=== PATIENT | female | born 1960 | race Caucasian/White ===

== ENCOUNTER 2016-03-10 13:58 | Emergency (ER) | payer OTHER ==
[~2016-03-10] VITALS: Wt 40.0 kg
[~2016-03-10 13:58] MED LIST: IBUP-1542 PO; METO25TA7 PO; OMEP20CA9 PO; OXYB5TAB7 PO
[2016-03-10] MEDS: HYDROCODONE/APAP (5/325) TAB PO ONE ×2 (15:03→15:05)
[2016-03-10] MEDS ORDERED: HYDROmorphONE 2 MG/ML SYG IM STA (15:05)
[2016-03-10] MEDS ORDERED: OXYC-279 PO (15:17)
[2016-03-10] MEDS ORDERED: CYCL-319 PO (15:17)
[2016-03-10] MEDS ORDERED: NAPR-260 PO (15:17)
[2016-03-10 15:22] LABS: URINE BLOOD (Dip) POC 3+ (NEGATIVE)
--- NOTE | 2016-03-10 17:38 | ERD ---
DATE OF SERVICE: HISTORY OF PRESENT ILLNESS: The patient is a 55-year-old female coming in complaining of chronic ba ck pain. Patient states that her back pain intensified 6 days ago when she was lifting boxes. She states that the pain is worse with movement and rotational movement. She is not taking medications for her symptoms. She has no numbness or tingling down her legs, and no weakness. She has been abl e to control her bowel movements and urination without difficulty. PAST MEDICAL HISTORY: Denies any other medical problems. ALLERGIES: Denies allergies to medications. SURGICAL HISTORY: Denies. SOCIAL HISTORY: Denies. REVIEW OF SYSTEMS: A 12-point review of systems was done. Refer to HPI for positives, all other sy stems negative. PHYSICAL EXAMINATION: VITAL SIGNS: Temperature is 98.5, pulse is 107, blood pressure is 120/64, respiratory rate 18, O2 s aturation 98% on room air. Pain intensity of 10/10. GENERAL: The patient is well-appearing, well-nourished, no acute distress. HEENT: Atraumatic. Conjunctivae are pink. Pupils equal, round, and reactive to light. There is no s cleral icterus. Tympanic membranes clear bilaterally. Oropharynx clear. No nystagmus or photophobia . CHEST: Clear to auscultation bilaterally. There are no rales, wheezes or rhonchi. HEART: Regular rate and rhythm. No murmurs, clicks, rubs or gallops. No S3 or S4. ABDOMEN: Soft, nontender and nondistended. Good bowel sounds. No rebound or guarding. No gross jacinto tonitis. No gross organomegaly or masses. No Barboza sign or McBurney point tenderness. EXTREMITIES: Equal pulses bilaterally. There is no peripheral clubbing, cyanosis or edema. No focal swelling or erythema. Full range of motion. Grossly neurovascularly intact. NEURO: Alert and oriented. Cranial nerves 2-12 intact. Motor strength in all 4 extremities with 5/5 strength. Sensation grossly intact. Normal speech and gait. Babinski negative. DTR 2+ throughout. EMERGENCY ROOM COURSE: The patient was given Dilaudid in the ER. DIAGNOSIS: Chronic back pain. MEDICAL DECISION MAKING: I have low suspicion for acute fracture or dislocation. I have low suspic ion for neuro deficit. Patient does have a history of cancer. Recommended to follow up with her pr imary doctor. She has been clear for 2 years, but I recommended she has a close evaluation. I have low suspicion for cauda equina, diskitis or epidural abscess. DISCHARGE: The patient is discharged stable. Patient is given a prescription for Percocet and Napr oxen and Flexeril and told to follow up with primary care within 1 to 2 days for reevaluation. The patient was told if symptoms progress or worsen to return to the ER. All other questions answered a t time of discharge. Discharge summary given at the time of departure. Patient understood and comp lied with plan. Dictated By: KRIBY DOHERTY for ZAK NASH/MYAH Conf#: [id number] DID#: [id number]
== END 2016-03-10 16:18 | disposition home or self-care (01) ==
LOC: FTE 13:58
DX: M54.9 Dorsalgia, unspecified (principal); I10 Essential (primary) hypertension; Z85.42 Personal history of malignant neoplasm of other parts of uterus
CPT/HCPCS: 81003; 96372; J1170; Z7502; Z7610

== ENCOUNTER 2016-04-14 10:24 | Emergency (ER) | payer OTHER ==
[~2016-04-14] VITALS: Wt 43.6 kg
[~2016-04-14 10:24] MED LIST changes: +CYCL-319 PO; +NAPR-260 PO; +OXYC-279 PO
[2016-04-14] MEDS ORDERED: ONDANSETRON 4 MG INJ IV STA ×2 (10:46→13:37)
[2016-04-14] MEDS ORDERED: SOD CHLORIDE 0.9% 150 ML IV STA (10:46)
--- NOTE | 2016-04-14 10:46 | ERD ---
ER Documentation Chief Complaint Date/Time DATE: 04/14/16 TIME: 10:45 Chief Complaint left arm pain and headache from a fall. etoh for 3 days, no neuro def HPI 55-year-old female with history of chronic alcohol abuse and chronic pain well known to this ED, ambulatory to the ED with her complaining of a slip and fall several days ago with an injury to her upper back. She does not recall whether she lost consciousness but has worsening occipital headache. Denies neck pain. No chest pain or palpitations. No shortness of breath or cough. Chronic epigastric abdominal pain with nausea and multiple episodes of nonbloody nonbilious emesis. No URI symptoms or cough. No fevers or chills. According to her she is scheduled to be admitted next week for alcohol detox. ROS All systems reviewed and are negative except as per history of present illness. Medications Home Meds Reported Medications Lorazepam* (Lorazepam*) 1 Mg Tablet, 1 MG PO BID Y for ANXIETY, #30 TAB 04/14/16 Carisoprodol* (Carisoprodol*) 350 Mg Tablet, 350 MG PO Q8 Y for MUSCLE SPASMS, TAB 04/14/16 Hydrocodone/Acetaminophen ([place] 5-325 Tablet) 1 Each Tablet, 1 EACH PO DAILY Y for SEVERE PAIN LEVEL 7-10, TAB 04/14/16 Metoprolol Succinate* (Toprol XL*) 25 Mg Tab.sr.24h, 25 MG PO QAM, TAB 01/13/14 Oxybutynin Chloride* (Ditropan*) 5 Mg Tablet, 5 MG PO BID, TAB 01/13/14 Omeprazole* (Prilosec*) 20 Mg Capsule.dr, 20 MG PO DAILY, CAP 01/13/14 Discontinued Scripts Naproxen* (Naprosyn*) 500 Mg Tablet, 500 MG PO BID Y for PAIN AND/OR INFLAMMATION, #30 TAB Prov:LUANA FELIX PA-C 03/10/16 Cyclobenzaprine Hcl* (Cyclobenzaprine Hcl*) 10 Mg Tablet, 10 MG PO TID, #15 TAB Prov:LUANA FELIX PA-C 03/10/16 Oxycodone HCl/Acetaminophen (Percocet 5-325 mg Tablet) 1 Each Tablet, 1 EACH PO QHS, #10 TAB Prov:LUANA FELXI PA-C 03/10/16 Ibuprofen* (Motrin*) 600 Mg Tab, 600 MG PO Q6H Y for PAIN AND OR ELEVATED TEMP, #30 TAB Prov:ZANE MARQUEZ MD 10/15/15 Allergies Allergies: Coded Allergies: No Known Allergy (Verified , 04/14/16) PMhx/Soc Reviewed in chart. As per HPI. History of Surgery: Yes (hysterectomy 2006) Anesthesia Reaction: No Hx Neurological Disorder: No Hx Respiratory Disorders: No Hx Cardiac Disorders: Yes (HTN, osteoarthritis) Hx Psychiatric Problems: No Hx Miscellaneous Medical Probl: Yes (HERNIATED DISK, uterine CA) Hx Alcohol Use: Yes (etoh abuse) Hx Substance Use: No Hx Tobacco Use: Yes FmHx Reviewed in chart. As per HPI Physical Exam Vitals Vital Signs Date Time Temp Pulse Resp B/P Pulse Ox O2 Delivery O2 Flow Rate FiO2 04/14/16 13:12 116 24 99/64 92 Room Air 04/14/16 10:28 98.8 121 26 133/79 99 Physical Exam Const: Alert, anxious Head: Atraumatic. Mild occipital tenderness. Eyes: Normal Conjunctiva ENT: Normal External Ears, Nose and Mouth. Neck: Full range of motion. No midline bony tenderness or paraspinal muscle spasm. Resp: Breath sounds are equal and clear to auscultation bilaterally Cardio: Regular rate and rhythm, no murmurs. Chest wall: No rib tenderness or crepitus. Abd: Soft, mild epigastric tenderness, non distended. Normal bowel sounds. No rebound or guarding. No masses or abnormal pulsations. Skin: No petechiae or rashes Back: Right upper back abrasion and tenderness. No midline or flank tenderness Ext: No cyanosis, or edema Neur: Awake and alert Psych: Anxious. Patient denies visual auditory hallucinations. No suicidal or homicidal ideations. Result Diagram: 04/14/16 1110 04/14/16 1110 Results 24 hrs Laboratory Tests Test 04/14/16 11:10 Alanine Aminotransferase (ALT/SGPT) 61IU/L Albumin 5.0g/dl Albumin/Globulin Ratio 1.42 Alkaline Phosphatase 134IU/L Anion Gap 28 Aspartate Amino Transf (AST/SGOT) 97IU/L Basophils # 0.010^3/ul Basophils % 0.1% Blood Urea Nitrogen 14mg/dl Calcium Level 8.6mg/dl Carbon Dioxide Level 27mmol/L Chloride Level 86mmol/L Creatinine 0.52mg/dl Direct Bilirubin 0.00mg/dl Eosinophils # 0.010^3/ul Eosinophils % 0.1% Ethyl Alcohol Level 293.0mg/dl Globulin 3.50g/dl Glucose Level 134mg/dl Hematocrit 39.6% Hemoglobin 13.9g/dl Indirect Bilirubin 0.4mg/dl Lipase 177U/L Lymphocytes # 0.610^3/ul Lymphocytes % 7.2% Mean Corpuscular Hemoglobin 32.1pg Mean Corpuscular Hemoglobin Concent 35.1g/dl Mean Corpuscular Volume 91.2fl Mean Platelet Volume 9.5fl Monocytes # 0.710^3/ul Monocytes % 8.3% Neutrophils # 7.510^3/ul Neutrophils % 84.3% Nucleated Red Blood Cells # 0.010^3/ul Nucleated Red Blood Cells % 0.0/100WBC Platelet Count 58621^3/UL Potassium Level 3.1mmol/L Red Blood Count 4.3410^6/ul Red Cell Distribution Width 14.4% Sodium Level 138mmol/L Total Bilirubin 0.4mg/dl Total Protein 8.5g/dl White Blood Count 8.910^3/ul Current Medications Medications (Trade) Dose Ordered Sig/Yuliya Route PRN Reason Start Time Stop Time Status Last Admin Dose Admin Sodium Chloride (NS) 150 ml @ 150 mls/hr Q1H STAT IV 04/14/16 10:46 04/14/16 11:45 Ondansetron HCl (Zofran Inj) 4 mg ONCE STAT IV 04/14/16 10:46 04/14/16 10:47 04/14/16 11:02 Pantoprazole (Protonix Iv) 40 mg ONCE ONCE IV 04/14/16 11:00 04/14/16 11:01 04/14/16 11:02 Metoclopramide HCl (Reglan) 10 mg ONCE ONCE IV 04/14/16 12:30 04/14/16 12:31 04/14/16 12:09 Diphenhydramine HCl (Benadryl) 25 mg ONCE ONCE IV 04/14/16 12:30 04/14/16 12:31 04/14/16 12:10 Diphtheria/ Tetanus/Acell Pertussis (Adacel) 0.5 ml ONCE ONCE IM* 04/14/16 13:00 04/14/16 13:01 04/14/16 13:21 PROCEDURE: XR Chest. CLINICAL INDICATION: chest pain TECHNIQUE: Single frontal view of the chest was obtained COMPARISON: 10/29/14 FINDINGS: The heart and mediastinum are within normal limits. The lungs are clear. There is no pleural effusion or pneumothorax. RPTAT: AA IMPRESSION: No acute disease. .Aaron Zarate MD, MD Date Time Electronically viewed and signed by .Aaron Zarate MD, on 04/14/2016 11: 24 .S/ PROCEDURE: CT Brain without. CLINICAL INDICATION: Fall, headache. TECHNIQUE: A CT of the brain was performed on multidetector high-resolution CT scanner utilizing axial sections from the skull base through the vertex without contrast. The scan was reviewed in soft tissue brain and high frequency resolution bone algorithm windows. Images were reviewed on a high- resolution PACS workstation. One or more the following does reduction techniques were utilized: Automated exposure control, adjustment of the mA/ or kV according to patient's size, or use of iterative reconstruction technique. The exam CTDI = 45.0 mGy and the DLP = 72.23 mGy-cm. COMPARISON: Brain CT 05/01/2015. FINDINGS: The ventricles and sulci are mildly prominent indicative of volume loss. There is no intracranial hemorrhage, mass effect or midline shift. No abnormal intra- axial or extra-axial fluid collections are seen. The nance/white matter differentiation is preserved. There are mild scattered foci of hypoattenuation in the white matter, which are nonspecific in etiology but likely reflect chronic small vessel ischemic changes. The visualized paranasal sinuses are essentially clear. IMPRESSION: 1. No acute intracranial hemorrhage, transcortical infarction or mass effect. 2. Mild chronic small vessel ischemic changes. 3. Mild generalized cerebral volume loss. RPTAT: AA .Lilian Barajas MD, MD Date Time Electronically viewed and signed by .Lilian Barajas MD, MD on 04/14/2016 12: 54 .N/ Procedures/MDM DOCUMENTS REVIEWED: ED nurse, prior ED, prior records REEXAMINATION/REEVALUATION: Time: 13:30. Doing well. Abdomen soft nontender. No vomiting. MEDICAL DECISION MAKIN-year-old female with history of chronic alcohol abuse and chronic pain well known to this ED, ambulatory to the ED with her complaining of a slip and fall several days ago with an injury to her upper back. Closed head injury. CT is negative for acute intracranial injury including but not limited to subdural/epidural hematoma. Epigastric tenderness likely secondary to gastritis/GERD complicated by chronic pain. Doubt bowel obstruction. No rebound/guarding or other signs of peritonitis. Normal saline hydration, Zofran, Reglan and Benadryl given with improvement. Stable for discharge with precautionary instructions and outpatient follow-up as counseled. Counseled patient and family regarding diagnostic workup, diagnosis and need for followup. Understands to return to ED if symptoms recur, worsen or any other concerns. Departure Diagnosis: Primary Impression: Alcoholic intoxication Complication of substance-induced condition: uncomplicated Qualified Code: F10.120 - Alcoholic intoxication, uncomplicated Additional Impressions: Closed head injury Encounter type: initial encounter Qualified Code: S09.90XA - Closed head injury, initial encounter Fall with no significant injury Encounter type: initial encounter Qualified Code: W19.XXXA - Fall with no significant injury, initial encounter Chronic alcohol abuse Chronic pain Chronic pain type: other chronic pain Qualified Code: G89.29 - Other chronic pain Nausea and vomiting Vomiting type: unspecified Vomiting Intractability: unspecified Qualified Code: R11.2 - Nausea and vomiting, intractability of vomiting not specified, unspecified vomiting type Condition: Stable Patient Instructions: Alcohol Abuse, Alcohol Intoxication, HEAD INJURY, No Wake -Up (Adult), Nausea and Vomiting-Adult MONICA ENGLAND MD Apr 14, 2016 10:45
[2016-04-14] MEDS ORDERED: PANTOPRAZOLE 40 MG INJ IV ONE (11:00)
[2016-04-14 11:22] LABS: BASOPHILS % 0.1 % (0.0-2.0); EOSINOPHILS % 0.1 % (0.0-7.0); HEMATOCRIT 39.6 % (37.0-47.0); HEMOGLOBIN 13.9 g/dl (12.0-16.0); LYMPHOCYTES # 0.6 10^3/ul (0.8-2.9); LYMPHOCYTES % 7.2 % (15.0-51.0); MEAN CORPUSCULAR HEMOGLOBIN 32.1 pg (29.0-33.0); MEAN CORPUSCULAR HGB CONC 35.1 g/dl (32.0-37.0); MEAN CORPUSCULAR VOLUME 91.2 fl (82.0-101.0); MEAN PLATELET VOLUME 9.5 fl (7.4-10.4); MONOCYTE # 0.7 10^3/ul (0.3-0.9); MONOCYTES % 8.3 % (0.0-11.0); NEUTROPHIL # 7.5 10^3/ul (1.6-7.5); NEUTROPHILS % 84.3 % (39.0-77.0); PLATELET COUNT 136 10^3/UL (140-440); RED BLOOD COUNT 4.34 10^6/ul (4.20-5.40); RED CELL DISTRIBUTION WIDTH 14.4 % (11.5-14.5); UNCORRECTED WBC 8.9 10^3/ul (4.8-10.8); WHITE BLOOD COUNT 8.9 10^3/ul (4.8-10.8)
[2016-04-14 11:24] LABS: CONDITION 1
--- NOTE | 2016-04-14 11:25 | RADRPT ---
PROCEDURE: XR Chest. CLINICAL INDICATION: chest pain TECHNIQUE: Single frontal view of the chest was obtained COMPARISON: 10/29/14 FINDINGS: The heart and mediastinum are within normal limits. The lungs are clear. There is no pleural effusion or pneumothorax. RPTAT: AA IMPRESSION: No acute disease. .Aaron Zarate MD, MD Date Time Electronically viewed and signed by .Aaron Zarate MD, MD on 04/14/2016 11:24 .S/
[2016-04-14 11:39] LABS: POTASSIUM 3.1 mmol/L (3.5-5.1)
[2016-04-14 11:41] LABS: CREATININE 0.52 mg/dl (0.44-1.00)
[2016-04-14 11:42] LABS: ALBUMIN/GLOBULIN RATIO 1.42; BILIRUBIN,INDIRECT 0.4 mg/dl (0-1.1); BILIRUBIN,TOTAL 0.4 mg/dl (0.2-1.3); CALCIUM 8.6 mg/dl (8.4-10.2); TOTAL PROTEIN 8.5 g/dl (6.1-8.1)
[2016-04-14] MEDS ORDERED: DIPHENHYDRAMINE 50 MG INJ IV ONE ×2 (12:30→14:00)
[2016-04-14] MEDS ORDERED: METOCLOPRAMIDE 10 MG INJ IV ONE (12:30)
[2016-04-14] MEDS ORDERED: HYDR-906 PO (12:33)
[2016-04-14] MEDS ORDERED: CARI350T29 PO (12:34)
[2016-04-14] MEDS ORDERED: LORA1TAB PO (12:34)
--- NOTE | 2016-04-14 12:54 | RADRPT ---
PROCEDURE: CT Brain without. CLINICAL INDICATION: Fall, headache. TECHNIQUE: A CT of the brain was performed on multidetector high-resolution CT scanner utilizing a xial sections from the skull base through the vertex without contrast. The scan was reviewed in sof t tissue brain and high frequency resolution bone algorithm windows. Images were reviewed on a high -resolution PACS workstation. One or more the following does reduction techniques were utilized: Aut omated exposure control, adjustment of the mA/ or kV according to patient's size, or use of iterativ e reconstruction technique. The exam CTDI = 45.0 mGy and the DLP = 72.23 mGy-cm. COMPARISON: Brain CT 05/01/2015. FINDINGS: The ventricles and sulci are mildly prominent indicative of volume loss. There is no intracranial he morrhage, mass effect or midline shift. No abnormal intra-axial or extra-axial fluid collections ar e seen. The nance/white matter differentiation is preserved. There are mild scattered foci of hypoattenuation in the white matter, which are nonspecific in etiol ogy but likely reflect chronic small vessel ischemic changes. The visualized paranasal sinuses are essentially clear. IMPRESSION: 1. No acute intracranial hemorrhage, transcortical infarction or mass effect. 2. Mild chronic small vessel ischemic changes. 3. Mild generalized cerebral volume loss. RPTAT: AA .Lilian Barajas MD, MD Date Time Electronically viewed and signed by .Lilian Barajas MD, MD on 04/14/2016 12:54 .N/
[2016-04-14] MEDS ORDERED: DIPHTH/TET/ACEL PERTUSS (ADULT) 0.5 ML VIAL IM* ONE (13:00)
[2016-04-14] MEDS ORDERED: POTASSIUM CHLORIDE (SR) 20 MEQ TAB PO STA (13:37)
[2016-04-14] MEDS ORDERED: ONDANSETRON (ODT) 4 MG TAB ODT STA (13:38)
[2016-04-14] MEDS ORDERED: LORAZEPAM 2 MG INJ IM ONE (14:00)
[2016-04-14] MEDS ORDERED: ONDA4TAB14 PO (15:16)
[2016-04-14 15:20] VITALS: BP 107/67; PULSE 96; RESP 20
== END 2016-04-14 15:34 | disposition home or self-care (01) ==
LOC: E/R 10:24
DX: F10.120 Alcohol abuse with intoxication, uncomplicated (principal); R40.2252 Coma scale, best verbal response, oriented, at arrival to emergency department; G89.29 Other chronic pain; R11.2 Nausea with vomiting, unspecified; I10 Essential (primary) hypertension; R40.2362 Coma scale, best motor response, obeys commands, at arrival to emergency department; R40.2142 Coma scale, eyes open, spontaneous, at arrival to emergency department; W01.0XXA Fall on same level from slipping, tripping and stumbling without subsequent striking against object, initial encounter; Y92.9 Unspecified place or not applicable; Z23 Encounter for immunization; Z85.42 Personal history of malignant neoplasm of other parts of uterus; Z87.891 Personal history of nicotine dependence
CPT/HCPCS: 70450; 71010; 80053; 80306; 83690; 85025; 90715; C9113; J1200; J2060; J2405; J2765; J7040; Z7610; 36415; 90471; 96372; 96374; 96375

== ENCOUNTER 2016-05-19 13:34 | Emergency (ER) | payer OTHER ==
[~2016-05-19] VITALS: Wt 60.0 kg
[~2016-05-19 13:34] MED LIST changes: +CARI350T29 PO; -CYCL-319 PO; +HYDR-906 PO; -IBUP-1542 PO; +LORA1TAB PO; -NAPR-260 PO; +ONDA4TAB14 PO; -OXYC-279 PO
[2016-05-19] MEDS ORDERED: ONDANSETRON (ODT) 4 MG TAB ODT STA (21:22)
--- NOTE | 2016-05-19 21:27 | ERD ---
ER Documentation Chief Complaint Date/Time DATE: 05/19/16 TIME: 21:24 Chief Complaint ETOH WITH BACK PAIN HPI Patient is a 55-year-old female who states that she was drinking his usual and was sitting on the commode when she fell off of it and hit her head on the bathtub. This occurred a couple of days ago. She describes it as a weird event although she cannot give me any more description than that. She does not think she was knocked out. Somehow she injured her low back as well but she cannot tell me how. She states she does have chronic low back pain as well. She states she used to get injections but does not anymore. She admits to being a chronic alcoholic. I asked her if she wanted to go somewhere for detox and she stated she is already scheduled for detox on . She is not interested at this time. She is here because she is concerned about hitting her head and exacerbating her low back pain. She denies any neck pain, chest pain, shortness of breath, hemoptysis, abdominal pain, diarrhea, melena, hematochezia, paresthesias, or focal weakness. She denies any lacerations, or abrasions. She is complaining of nausea and vomiting however she has not had any alcohol since this morning and she states she has vomiting when she withdraws. She says she does not have seizures. The remainder review systems are negative. ROS All systems reviewed and are negative except as per history of present illness. Medications Home Meds Active Scripts Ondansetron (Ondansetron Odt) 4 Mg Tab.rapdis, 4 MG PO Q6H Y for NAUSEA AND/OR VOMITING, #10 TAB Prov:MONICA ENGLAND MD 04/14/16 Reported Medications Lorazepam* (Lorazepam*) 1 Mg Tablet, 1 MG PO BID Y for ANXIETY, #30 TAB 04/14/16 Carisoprodol* (Carisoprodol*) 350 Mg Tablet, 350 MG PO Q8 Y for MUSCLE SPASMS, TAB 04/14/16 Hydrocodone/Acetaminophen ([place] 5-325 Tablet) 1 Each Tablet, 1 EACH PO DAILY Y for SEVERE PAIN LEVEL 7-10, TAB 04/14/16 Metoprolol Succinate* (Toprol XL*) 25 Mg Tab.sr.24h, 25 MG PO QAM, TAB 11/13/14 Oxybutynin Chloride* (Ditropan*) 5 Mg Tablet, 5 MG PO BID, TAB 01/13/14 Omeprazole* (Prilosec*) 20 Mg Capsule.dr, 20 MG PO DAILY, CAP 01/13/14 Allergies Allergies: Coded Allergies: No Known Allergy (Verified , 04/14/16) PMhx/Soc History of Surgery: Yes (hysterectomy 2006) Anesthesia Reaction: No Hx Neurological Disorder: No Hx Respiratory Disorders: No Hx Cardiac Disorders: Yes (HTN, osteoarthritis) Hx Psychiatric Problems: No Hx Miscellaneous Medical Probl: Yes (HERNIATED DISK, uterine CA) Hx Alcohol Use: Yes (etoh abuse) Hx Substance Use: No Hx Tobacco Use: Yes Smoking Status: Current every day smoker FmHx Family History: No coronary disease, No diabetes Physical Exam Vitals Vital Signs Date Time Temp Pulse Resp B/P Pulse Ox O2 Delivery O2 Flow Rate FiO2 05/19/16 20:58 98.8 89 18 126/73 100 Room Air 05/19/16 13:36 98.0 122 18 112/86 99 Physical Exam Const: [] Well-developed cachectic appearing female lying on the bed no acute distress Head: Atraumatic normocephalic Eyes: Normal Conjunctiva, extraocular motions are intact ENT: Normal External Ears, Nose and Mouth. Neck: Full range of motion..~ No meningismus. Resp: Clear to auscultation bilaterally Cardio: Regular rate and rhythm, no murmurs Abd: Soft, non tender, non distended. Normal bowel sounds, no masses, rebound , or guarding Skin: No petechiae or rashes Back: Patient reports mild tenderness to palpation throughout the lumbosacral region, no step-off deformities noted Ext: No cyanosis, or edema Neur: Awake and alert, oriented 3, GCS of 15, cranial nerves II through XII are intact, moves all extremities equally, nonfocal Psych: Normal Mood and Affect Results 24 hrs Current Medications Medications (Trade) Dose Ordered Sig/Yuliya Route PRN Reason Start Time Stop Time Status Last Admin Dose Admin Lorazepam (Ativan) 1 mg ONCE ONCE IM 05/19/16 21:30 05/19/16 21:31 DC 05/19/16 21:31 Ondansetron HCl (Zofran Odt) 4 mg ONCE STAT ODT 05/19/16 21:22 05/19/16 21:25 DC 05/19/16 21:31 Procedures/MDM Differential includes minor head injury, acute exacerbation of chronic low back pain, fracture, chronic alcoholism CT of the brain shows atrophy for age but no acute findings per the radiologist CT of the lumbar spine shows a mild disc herniation at the lower lumbosacral spine but no acute findings per the radiologist 2031: Patient appears clinically stable for discharge home. She may follow-up as an outpatient with her primary care physician. I have encouraged her to keep her appointment for detox. She may return to the emergency room for any new or worsening symptoms. Departure Diagnosis: Primary Impression: Acute alcohol intoxication Complication of substance-induced condition: uncomplicated Qualified Code: F10.120 - Acute alcohol intoxication, uncomplicated Additional Impressions: Head injury Encounter type: initial encounter Qualified Code: S09.90XA - Head injury, initial encounter Acute exacerbation of chronic low back pain Herniated intervertebral disc of lumbar spine Condition: Good Patient Instructions: Alcohol Addiction, Back And Neck Pain, General, HEAD INJURY, No Wake-Up (Adult) Additional Instructions: Please keep your appointment as scheduled on for detox. I feel this is very important for you. You may schedule a follow-up appointment as needed for your acute exacerbation of your chronic low back pain. Return to the emergency department for any new or worsening symptoms. JENNIFFER GUTIERREZ May 19, 2016 21:27
[2016-05-19] MEDS ORDERED: LORAZEPAM 2 MG INJ IM ONE (21:30)
--- NOTE | 2016-05-19 22:01 | RADRPT ---
PROCEDURE: CT brain without contrast CLINICAL INDICATION: Status post fall striking head. Post traumatic headaches. TECHNIQUE: A CT of the brain was performed utilizing axial sections from the skull base through th e vertex without contrast. Sagittal and coronal images were also reformatted. The exam CTDIvol = 99 9.78 mGy and DLP = 720.23 mGy-cm. COMPARISON: CT 04/14/2016 FINDINGS: No acute intracranial hemorrhage is identified. There is no mass effect or midline shift. No extra -axial fluid collection is seen. The ventricles and sulci are larger in size and configuration for the patient's provided age of 55 years consistent with advanced generalized atrophy. Mild low atten uation in the periventricular subcortical white matter likely reflects stable chronic small vessel i schemic disease. Becerra-white differentiation is preserved with no findings to suggest an acute ische kayli infarct. The fourth ventricle is midline and there is no density alteration within the genaro or cerebellum. The osseous structures are unremarkable. The mastoid air cells and visualized paranasal sinuses are clear. RPTAT:HJJR IMPRESSION: Advanced atrophy for the patient's provided age with stable mild chronic small vessel ischemic white matter disease but no evidence of acute intracranial abnormality or interval change from 04/14/2016 . Physician Dawit Date Time Electronically viewed and signed by Physician Dawit on 05/19/2016 22:01 /
--- NOTE | 2016-05-19 22:08 | RADRPT ---
PROCEDURE: CT Lumbar Spine without contrast. CLINICAL INDICATION: Post traumatic low back pain. TECHNIQUE: CT of the lumbar spine without contrast was performed. Axial images were obtained thro [facility] the lumbar spine and reformatted at 2.5 mm slice thickness. Coronal and sagittal images were ref ormatted. The CTDIvol = 6.39 mGy and DLP = 183.83 mGy-cm. COMPARISON: X-ray series 11/22/2013 FINDINGS: Vertebral bodies: There is preservation of lordosis, stature, mineralization and attenuation of the five [id number]-mxfhhmm levels. Partial lumbarization of S1 is present consistent with transitional jacob mbosacral anatomy, a normal S1-2 disk is present Conus medularis region: Normal in attenuation and determination estimated at the L1 level. T12-L1: No discogenic abnormality of significance is seen. There is no facet arthropathy. The centr al canal is patent. There is no evidence for foraminal stenosis. L1-L2: No discogenic abnormality of significance is seen. There is no facet arthropathy. The ligamen pasquale flava are normal in thickness. The central canal is patent. There is no evidence for foraminal stenosis. L2-L3: No discogenic abnormality of significance is seen. There is no facet arthropathy. The ligamen pasquale flava are normal in thickness. The central canal is patent. There is no evidence for foraminal stenosis. L3-L4:No discogenic abnormality of significance is seen. There is no facet arthropathy. The ligament um flava are normal in thickness. The central canal is patent. There is no evidence for foraminal stenosis. L4-L5: No discogenic abnormality of significance is seen. There is no facet arthropathy. The ligamen pasquale flava are normal in thickness. The central canal is patent. There is no evidence for foraminal stenosis. L5-S1: Preservation of disk stature with a small broad-based 2 mm disk protrusion. There is no facet arthropathy. Bilateral S1 spondylolysis is noted without spondylolisthesis The ligamentum flava are normal in thickness. The central canal is patent. There is no evidence for foraminal stenosis. Sacrum and sacroiliac joints: Other than transitional congenital anatomy, no acute abnormality is de monstrated, spina bifida occulta at S1 is seen. None spine related findings: Visualized liver demonstrates severe hepatic steatosis. There is minim al atherosclerotic calcification of the abdominal aorta. RPTAT:HJJR IMPRESSION: 1. No evidence of acute post traumatic lumbar spine abnormality. 2. 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 3. Small broad-based posterior disk protrusion at 5 S1 without significant disk stature loss or of associated stenosis. Osmani Banks Physician Date Time Electronically viewed and signed by Osmani Banks Physician on 05/19/2016 22:08 /
[2016-05-19] MEDS ORDERED: ONDA4TAB8 PO (22:37)
[2016-05-19] MEDS ORDERED: FIORICET PO (22:37)
[2016-05-19 22:48] VITALS: BP 133/78; PULSE 92; RESP 20; TEMP 98.5
== END 2016-05-19 22:48 | disposition home or self-care (01) ==
LOC: E/R 13:34
DX: F10.120 Alcohol abuse with intoxication, uncomplicated (principal); M51.86 Other intervertebral disc disorders, lumbar region; I10 Essential (primary) hypertension; F17.210 Nicotine dependence, cigarettes, uncomplicated; R11.2 Nausea with vomiting, unspecified; W18.09XA Striking against other object with subsequent fall, initial encounter; Y92.9 Unspecified place or not applicable; Z85.42 Personal history of malignant neoplasm of other parts of uterus
CPT/HCPCS: 70450; 72131; 96372; J2060; Z7502; Z7610

== ENCOUNTER 2016-06-16 13:44 | Emergency (ER) | payer OTHER ==
[~2016-06-16] VITALS: Ht 152.4 cm; Wt 40.0 kg
[~2016-06-16 13:44] MED LIST changes: +FIORICET PO; +ONDA4TAB8 PO
[2016-06-16 13:46] VITALS: Ht 152.4 cm; Wt 40.0 kg
[2016-06-16] MEDS ORDERED: KETOROLAC 30 MG INJ IM STA (14:30)
[2016-06-16] MEDS ORDERED: HYDROCODONE/APAP (5/325) TAB PO ONE (14:30)
--- NOTE | 2016-06-16 14:42 | ERD ---
ER Documentation Chief Complaint Date/Time DATE: 06/16/16 TIME: 14:35 Chief Complaint 710 R. elbow pain x 1 month after fall HPI This is a 55-year-old female, with history of chronic alcoholism and chronic lower back pain, presents emergency department for right elbow pain. Patient states she fell 1 month ago and she believes this is when she injured her elbow. At that time patient fell hitting her head and right elbow. Patient was seen here at that time and a CT brain and CT lumbar spine were done. CT brain reviewed by radiologist as advanced atrophy for the patient's provided age with stable mild chronic small vessel ischemic disease but no evidence of acute intracranial abnormality or interval change. CT lumbar spine reviewed by radiologist as no evidence of acute post traumatic lumbar spine abnormality. Patient states she takes [place] at home for pain however pain is becoming more severe. Patient rates pain 7/10. No swelling, erythema or laceration. Patient has full mobility to right upper extremity and elbow. ROS All systems reviewed and are negative except as per history of present illness. Medications Home Meds Active Scripts Ondansetron Hcl* (Zofran*) 4 Mg Tablet, 4 MG PO Q8H Y for NAUSEA AND/OR VOMITING , #30 TAB 0 Refills Prov:JENNIFFER GUTIERREZ 05/19/16 Acetamin/Butalbital/Caffeine* (Fioricet*) [id number] Tab, 2 TAB PO Q4H Y for PAIN LEVEL 6-10, #20 TAB 0 Refills Prov:JENNIFFER GUTIERREZ 05/19/16 Ondansetron (Ondansetron Odt) 4 Mg Tab.rapdis, 4 MG PO Q6H Y for NAUSEA AND/OR VOMITING, #10 TAB Prov:MONICA ENGLAND MD 04/14/16 Reported Medications Lorazepam* (Lorazepam*) 1 Mg Tablet, 1 MG PO BID Y for ANXIETY, #30 TAB 04/14/16 Carisoprodol* (Carisoprodol*) 350 Mg Tablet, 350 MG PO Q8 Y for MUSCLE SPASMS, TAB 04/14/16 Hydrocodone/Acetaminophen ([place] 5-325 Tablet) 1 Each Tablet, 1 EACH PO DAILY Y for SEVERE PAIN LEVEL 7-10, TAB 04/14/16 Metoprolol Succinate* (Toprol XL*) 25 Mg Tab.sr.24h, 25 MG PO QAM, TAB 11/13/14 Oxybutynin Chloride* (Ditropan*) 5 Mg Tablet, 5 MG PO BID, TAB 01/13/14 Omeprazole* (Prilosec*) 20 Mg Capsule.dr, 20 MG PO DAILY, CAP 01/13/14 Allergies Allergies: Coded Allergies: No Known Allergy (Verified , 06/16/16) PMhx/Soc History of Surgery: Yes (hysterectomy 2006) Anesthesia Reaction: No Hx Neurological Disorder: No Hx Respiratory Disorders: No Hx Cardiac Disorders: Yes (HTN, osteoarthritis) Hx Psychiatric Problems: No Hx Miscellaneous Medical Probl: Yes (HERNIATED DISK, uterine CA) Hx Alcohol Use: Yes (etoh abuse) Hx Substance Use: No Hx Tobacco Use: Yes Smoking Status: Current every day smoker Physical Exam Vitals Vital Signs Date Time Temp Pulse Resp B/P Pulse Ox O2 Delivery O2 Flow Rate FiO2 06/16/16 13:46 98.9 85 18 115/58 99 Physical Exam Const: no acute distress, smiling during exam Head: Atraumatic Eyes: Normal Conjunctiva ENT: Normal External Ears, Nose and Mouth. Neck: Full range of motion..~ No meningismus. Resp: Clear to auscultation bilaterally. No wheezing, rhonchi or crackles. No stridor or labored breathing. Patient is talking in complete sentences. Cardio: Regular rate and rhythm, no murmurs Abd: Soft, non tender, non distended. Normal bowel sounds Skin: No petechiae or rashes Back: No midline or flank tenderness Ext: No cyanosis, or edema. Full mobility to right and left upper extremities. No swelling, erythema or laceration. Full extension and flexion of right elbow. Neur: Awake and alert Psych: Normal Mood and Affect Results 24 hrs Current Medications Medications (Trade) Dose Ordered Sig/Yuliya Route PRN Reason Start Time Stop Time Status Last Admin Dose Admin Ketorolac Tromethamine (Toradol) 30 mg ONCE STAT IM 06/16/16 14:30 06/16/16 14:32 DC 06/16/16 14:51 Acetaminophen/ Hydrocodone Bitart ([place] (5/325)) 1 tab ONCE ONCE PO 06/16/16 14:30 06/16/16 14:32 DC 06/16/16 14:51 Procedures/MDM ED COURSE: The patient was stable throughout ED course. I kept the patient and/or family informed of laboratory and diagnostic imaging results throughout the ED course. Imaging X-ray right elbow Patient: ANKUSH OSEI : 1960 Age: 55 Sex: F MR #: [id number] [facility] #: [id number] DOS: 06/16/16 1430 Ordering MD: JUAN TORRES NP Location: [facility]TE Room/Bed: PROCEDURE: XR Elbow. CLINICAL INDICATION: Right elbow pain, fall TECHNIQUE: Three views of the right elbow are available for review COMPARISON: None available FINDINGS: There is no evidence of fracture or dislocation. The joint spaces are maintained. Bony mineralization is normal. No radiopaque foreign body is identified. No fat pad sail sign is identified to indicate a hemarthrosis. The soft tissues are otherwise unremarkable. IMPRESSION: 1. Unremarkable right elbow x-ray series. MDM: This is a 55-year-old female with relevant medical history for chronic alcoholism and chronic lower back pain presents to the emergency department for right elbow pain after fall one month ago. Patient reports falling hitting her head and right elbow. Patient was seen at the time of injury and workup was done at that time here. At that time CT imaging of brain and CT spine reviewed by radiologist showed no acute findings. No x-rays of the elbow were done at that time. Patient rating pain 7/10 to right elbow. No limited mobility. No swelling. Patient denies shortness of breath, difficulty breathing, chest pain or heart palpitations. Patient requesting [place]. Patient given [place] and Toradol on the ED. x-ray right elbow reviewed by radiologist is unremarkable. Patient states pain has improved. Low suspicion for acute dislocation, fracture or compartment syndrome. Differential diagnosis includes but not limited to acute exacerbation of chronic pain, muscular skeletal elbow pain and tendinitis. Patient is appropriate for outpatient management. Instructed patient to follow- up with primary care provider in the next 2-3 days for reassessment. Return to ED for any high fever, chest pain, difficulty breathing, shortness breath, wheezing, vomiting, diarrhea, abdominal pain or any new or worsening symptoms. Patient verbalizes understanding. All questions answered at discharge. Departure Diagnosis: Primary Impression: Elbow injury Encounter type: subsequent encounter Laterality: right Qualified Code: S59.901D - Elbow injury, right, subsequent encounter Condition: Stable JUAN TORRES NP Jun 16, 2016 14:42 JUAN TORRES NP Jun 16, 2016 14:42
--- NOTE | 2016-06-16 15:04 | RADRPT ---
PROCEDURE: XR Elbow. CLINICAL INDICATION: Right elbow pain, fall TECHNIQUE: Three views of the right elbow are available for review COMPARISON: None available FINDINGS: There is no evidence of fracture or dislocation. The joint spaces are maintained. Bony mineralization is normal. No radiopaque foreign body is identified. No fat pad sail sign is identified to indicate a hemarthrosis. The soft tissues are otherwise unremarkable. IMPRESSION: 1. Unremarkable right elbow x-ray series. RPTAT: QQ .Alex Avilez MD, Date Time Electronically viewed and signed by .Alex Avilez MD, on 06/16/2016 15:04 .M/
== END 2016-06-16 15:31 | disposition home or self-care (01) ==
LOC: FTE 13:44
DX: S59.901A Unspecified injury of right elbow, initial encounter (principal); F17.210 Nicotine dependence, cigarettes, uncomplicated; I10 Essential (primary) hypertension; W19.XXXA Unspecified fall, initial encounter; Y92.9 Unspecified place or not applicable; Z85.41 Personal history of malignant neoplasm of cervix uteri
CPT/HCPCS: 73080; J1885; Z7610; 96372

== ENCOUNTER 2016-08-10 13:23 | Emergency (ER) | payer OTHER ==
[~2016-08-10] VITALS: Ht 157.5 cm; Wt 35.0 kg
[2016-08-10 13:26] VITALS: Ht 157.5 cm; Wt 35.0 kg
[2016-08-10] MEDS ORDERED: KETOROLAC 15 MG INJ IV STA (14:02)
[2016-08-10] MEDS ORDERED: ONDANSETRON 4 MG INJ IV STA (14:02)
[2016-08-10] MEDS ORDERED: SOD CHLORIDE 0.9% 1,000 ML IV STA (14:02)
[2016-08-10 14:24] LABS: ADD SCAN DIFF NO
[2016-08-10 14:26] LABS: BASOPHILS % 0.6 % (0.0-2.0); EOSINOPHILS % 0.5 % (0.0-7.0); HEMATOCRIT 38.6 % (37.0-47.0); HEMOGLOBIN 13.8 g/dl (12.0-16.0); LYMPHOCYTES # 1.3 10^3/ul (0.8-2.9); LYMPHOCYTES % 20.5 % (15.0-51.0); MEAN CORPUSCULAR HEMOGLOBIN 33.6 pg (29.0-33.0); MEAN CORPUSCULAR HGB CONC 35.8 g/dl (32.0-37.0); MEAN CORPUSCULAR VOLUME 93.9 fl (82.0-101.0); MEAN PLATELET VOLUME 11.9 fl (7.4-10.4); MONOCYTE # 0.7 10^3/ul (0.3-0.9); MONOCYTES % 11.2 % (0.0-11.0); NEUTROPHIL # 4.4 10^3/ul (1.6-7.5); NEUTROPHILS % 66.9 % (39.0-77.0); PLATELET COUNT 133 10^3/UL (140-415); RED BLOOD COUNT 4.11 10^6/ul (4.20-5.40); RED CELL DISTRIBUTION WIDTH 13.7 % (11.5-14.5); WHITE BLOOD COUNT 6.5 10^3/ul (4.8-10.8)
[2016-08-10 14:31] LABS: ADD UMIC YES; URINE BILIRUBIN (Dip) 1+ (NEGATIVE); URINE BLOOD (Dip) 3+ (NEGATIVE); URINE COLOR BROWN (YELLOW); URINE GLUCOSE (Dip) NEGATIVE (NEGATIVE); URINE KETONES (Dip) NEGATIVE (NEGATIVE); URINE LEUKOCYTE ESTERASE (Dip) 1+ (NEGATIVE); URINE NITRITE (Dip) NEGATIVE (NEGATIVE); URINE TOTAL PROTEIN (Dip) 4+ (NEGATIVE); URINE UROBILINOGEN (Dip) 2.0 E.U./dL (0.1-1.0)
[2016-08-10 14:50] LABS: BACTERIA,URINE MANY; ICTOTEST NEGATIVE (NEGATIVE); URINE RBCS >200 /HPF (0)
[2016-08-10 15:12] LABS: ALBUMIN 5.6 g/dl (3.3-4.9); ALBUMIN/GLOBULIN RATIO 1.4; BILIRUBIN,INDIRECT 0.8 mg/dl (0-1.1); BILIRUBIN,TOTAL 0.8 mg/dl (0.2-1.3); CREATININE 0.71 mg/dl (0.44-1.00); TOTAL PROTEIN 9.6 g/dl (6.1-8.1)
[2016-08-10 15:18] LABS: POTASSIUM 2.9 mmol/L (3.5-5.1)
[2016-08-10] MEDS ORDERED: POTASSIUM CHLORIDE (SR) 20 MEQ TAB PO STA (15:18)
[2016-08-10] MEDS ORDERED: CEFTRIAXONE 1 GM/50 ML (PMX) 50 ML IVPB ONE (15:30)
[2016-08-10] MEDS ORDERED: morphine 4 MG/ML VIAL IV STA (15:36)
[2016-08-10] MEDS ORDERED: IOHEXOL 300MG/ML 150 ML BTL ONE (16:20)
[2016-08-10] MEDS ORDERED: SOD CHLORIDE 0.9% 100 ML ONE (16:20)
[2016-08-10] MEDS ORDERED: IODIXANOL LOCM 100 ML BTL ONE (16:21)
--- NOTE | 2016-08-10 16:53 | RADRPT ---
PROCEDURE: CT Abdomen and Pelvis with Contrast CLINICAL INDICATION: Abdominal pain TECHNIQUE: Transaxial images were obtained through the abdomen and pelvis on a multi-slice scanner following the intravenous administration of iodinated contrast. No oral contrast had previously be en given. Sagittal and coronal re-formations were subsequently reconstructed. One or more of the following dose reduction techniques were used: - Automated exposure control. - Adjustment of the mA and/or kV according to patient size. - Use of iterative reconstruction technique. Radiation dose: CTDIvol = 3.92 mGy; DLP = 197.53 mGy-cm. COMPARISON: 07/26/2013 FINDINGS: Lung bases: The visualized lung bases appear unremarkable. Liver: The liver remains normal in size but has become extensively and diffusely fatty infiltrated. No focal lesion is identified. Gallbladder: The wall is not thickened. No radiopaque stones are identified. Bile ducts: The common bile duct has become dilated measuring 7.4 mm in cross diameter at the superi or head of the pancreas. Pancreas: No pancreatic mass or inflammation is evident but the pancreatic duct is dilated to a maxi mum of 4 mm. This likely is a sequelae of chronic pancreatitis. Spleen: Normal in size with no focal lesion. Adrenals: Normal with no mass identified. Kidneys, ureters and bladder: The kidneys enhance normally and are normal in size and there is no ma ss, pathological calcification, or hydronephrosis evident. There is no perinephric stranding. The ur eters are normal in caliber and no ureteroliths are identified. The bladder is quite distended with urine. Reproductive organs: The uterus is absent and no adnexal mass is evident. Stomach, bowel, and mesentery: The stomach appears unremarkable. The second portion of the duodenum is mildly distended with air and fluid as is the ilium compatible with ileus. The bowel is otherwi se unremarkable without evidence of obstruction or inflammation. Appendix: The vermiform appendix is not discretely identified. Peritoneum: No free intraperitoneal fluid or air is identified. Aorta: Normal in caliber with no aneurysmal dilatation. IVC: Unremarkable. Lymph nodes: No pathologically enlarged nodes are identified. Osseous structures: There is an old nonunited fracture involving the tip of the left L3 transverse p rocess. There is bilateral spondylolysis at L5 not associated with significant spondylolisthesis. There is a disk bulge at L4-5. IMPRESSION: 1. Since the previous CT of 07/26/2013, the liver remains normal in size but has become extensively and diffusely fatty infiltrated with no focal lesion evident. 2. The gallbladder appears unremarkable but there is now mild dilatation of the common bile duct wh ich measures 7.4 mm in cross diameter through the head of the pancreas and the pancreatic duct is no ndilated of 4 mm. No choledocholiths evident and no pancreatic mass or inflammation is identified. There is mild distension of the second portion of the duodenum. 3. The small bowel pattern reflects an ileus, but there is no evidence of bowel obstruction or infl ammation.. There is less stool seen in the colon. The appendix is again not identified. 4. The uterus is again noted to be absent. 5. There is no free intraperitoneal fluid or air. 6. Old nonunited fracture again seen at the lateral left L3 transverse process and again there is b ilateral spondylolysis at L5. Physician Pattie Date Time Electronically viewed and signed by Physician Pattie on 08/10/2016 16:52 /
[2016-08-10] MEDS ORDERED: CIPR500T4 PO (17:01)
[2016-08-10] MEDS ORDERED: TRAM50TA2 PO (17:01)
[2016-08-10] MEDS ORDERED: ONDA8TAB14 PO (17:01)
--- NOTE | 2016-08-10 17:05 | ERD ---
ER Documentation Chief Complaint Date/Time DATE: 08/10/16 TIME: 17:02 Chief Complaint lower back pain radiating to left flank x 3 days with vomiting HPI This 48-year-old female complains of left low back pain. She has some mild pain in the right midabdomen as well. She has dysuria. She has had a few episodes of vomiting as well nonbilious nonbloody. She has nausea. She has no measured fevers. She denies diarrhea. She did fall a few days ago and has pain in her sacrum as well. She is able to ambulate. Patient has frequent previous visits for alcohol intoxication, and back pain. ROS All systems reviewed and are negative except as per history of present illness. Medications Home Meds Active Scripts Potassium Chloride (Klor-Con M20) 20 Meq Tab.prt.sr, 20 MEQ PO qday for 7 Days, #7 Prov:ZAK HAIDER MD 08/10/16 Ondansetron (Ondansetron Odt) 8 Mg Tab.rapdis, 8 MG PO Q6H Y for NAUSEA AND/OR VOMITING, #10 TAB Prov:ZAK HAIDER MD 08/10/16 Tramadol HCl (Tramadol HCl) 50 Mg Tablet, 50 MG PO Q4 Y for PAIN, #20 TAB Prov:ZAK HAIDER MD 08/10/16 Ciprofloxacin Hcl* (Ciprofloxacin Hcl*) 500 Mg Tablet, 500 MG PO BID for 7 Days , TAB Prov:ZAK HAIDER MD 08/10/16 Ondansetron Hcl* (Zofran*) 4 Mg Tablet, 4 MG PO Q8H Y for NAUSEA AND/OR VOMITING , #30 TAB 0 Refills Prov:JENNIFFER GUTIERREZ 05/19/16 Acetamin/Butalbital/Caffeine* (Fioricet*) [id number] Tab, 2 TAB PO Q4H Y for PAIN LEVEL 6-10, #20 TAB 0 Refills Prov:JENNIFFER GUTIERREZ 05/19/16 Ondansetron (Ondansetron Odt) 4 Mg Tab.rapdis, 4 MG PO Q6H Y for NAUSEA AND/OR VOMITING, #10 TAB Prov:MONICA ENGLAND MD 04/14/16 Reported Medications Lorazepam* (Lorazepam*) 1 Mg Tablet, 1 MG PO BID Y for ANXIETY, #30 TAB 04/14/16 Carisoprodol* (Carisoprodol*) 350 Mg Tablet, 350 MG PO Q8 Y for MUSCLE SPASMS, TAB 04/14/16 Hydrocodone/Acetaminophen ([place] 5-325 Tablet) 1 Each Tablet, 1 EACH PO DAILY Y for SEVERE PAIN LEVEL 7-10, TAB 04/14/16 Metoprolol Succinate* (Toprol XL*) 25 Mg Tab.sr.24h, 25 MG PO QAM, TAB 01/13/14 Oxybutynin Chloride* (Ditropan*) 5 Mg Tablet, 5 MG PO BID, TAB 01/13/14 Omeprazole* (Prilosec*) 20 Mg Capsule.dr, 20 MG PO DAILY, CAP 01/13/14 Allergies Allergies: Coded Allergies: No Known Allergy (Verified , 06/16/16) PMhx/Soc History of Surgery: Yes (hysterectomy 2006) Anesthesia Reaction: No Hx Neurological Disorder: No Hx Respiratory Disorders: No Hx Cardiac Disorders: Yes (HTN, osteoarthritis) Hx Psychiatric Problems: No Hx Miscellaneous Medical Probl: Yes (HERNIATED DISK, uterine CA) Hx Alcohol Use: Yes (etoh abuse) Hx Substance Use: No Hx Tobacco Use: Yes Smoking Status: Light tobacco smoker Physical Exam Vitals Vital Signs Date Time Temp Pulse Resp B/P Pulse Ox O2 Delivery O2 Flow Rate FiO2 08/10/16 15:24 98.6 99 18 131/88 100 Room Air 08/10/16 13:26 98.0 144 18 125/95 98 Physical Exam Const: [] Alert, not ill-appearing. Head: Atraumatic Eyes: Normal Conjunctiva ENT: Normal External Ears, Nose and Mouth. Neck: Full range of motion..~ No meningismus. Resp: Clear to auscultation bilaterally Cardio: Regular rate and rhythm, no murmurs Abd: Soft, mild tenderness in the left mid abdomen as well as the right midabdomen. No exquisite tenderness at McBurney's point no Barboza sign no rebound., non distended. Normal bowel sounds Skin: No petechiae or rashes Back: No midline or flank tenderness. Tenderness in the left L2-L3 area of the paraspinous muscles on the left side. There is no midline tenderness or deformities. Ext: No cyanosis, or edema Neur: Awake and alert Psych: Normal Mood and Affect Result Diagram: 08/10/16 1415 08/10/16 1415 Results 24 hrs Laboratory Tests Test 08/10/16 14:10 08/10/16 14:15 Urine Color BROWN Urine Clarity CLOUDY Urine pH 6.0 Urine Specific [place] 1.020 Urine Ketones NEGATIVE Urine Nitrite NEGATIVE Urine Bilirubin 1+ Urine Ictotest NEGATIVE Urine Urobilinogen 2.0 E.U./dL Urine Leukocyte Esterase 1+ Urine Microscopic RBC >200/HPF Urine Microscopic WBC 10-25/HPF Urine Bacteria MANY Urine Hemoglobin 3+ Urine Glucose NEGATIVE% Urine Total Protein 4+ White Blood Count 6.510^3/ul Red Blood Count 4.1110^6/ul Hemoglobin 13.8g/dl Hematocrit 38.6% Mean Corpuscular Volume 93.9fl Mean Corpuscular Hemoglobin 33.6pg Mean Corpuscular Hemoglobin Concent 35.8g/dl Red Cell Distribution Width 13.7% Platelet Count 94084^3/UL Mean Platelet Volume 11.9fl Neutrophils % 66.9% Lymphocytes % 20.5% Monocytes % 11.2% Eosinophils % 0.5% Basophils % 0.6% Nucleated Red Blood Cells % 0.0/100WBC Neutrophils # 4.410^3/ul Lymphocytes # 1.310^3/ul Monocytes # 0.710^3/ul Eosinophils # 0.010^3/ul Basophils # 0.010^3/ul Nucleated Red Blood Cells # 0.010^3/ul Sodium Level 138mmol/L Potassium Level 2.9mmol/L Chloride Level 90mmol/L Carbon Dioxide Level 25mmol/L Anion Gap 26 Blood Urea Nitrogen 8mg/dl Creatinine 0.71mg/dl Glucose Level 104mg/dl Calcium Level 10.0mg/dl Total Bilirubin 0.8mg/dl Direct Bilirubin 0.00mg/dl Indirect Bilirubin 0.8mg/dl Aspartate Amino Transf (AST/SGOT) 121IU/L Alanine Aminotransferase (ALT/SGPT) 67IU/L Alkaline Phosphatase 122IU/L Total Protein 9.6g/dl Albumin 5.6g/dl Globulin 4.00g/dl Albumin/Globulin Ratio 1.40 Lipase 224U/L Current Medications Medications (Trade) Dose Ordered Sig/Yuliya Route PRN Reason Start Time Stop Time Status Last Admin Dose Admin Sodium Chloride (NS) 1,000 ml @ 1,000 mls/hr Q1H STAT IV 08/10/16 14:02 08/10/16 15:01 DC 08/10/16 14:36 Ondansetron HCl (Zofran Inj) 4 mg ONCE STAT IV 08/10/16 14:02 08/10/16 14:03 DC 08/10/16 14:25 Ketorolac Tromethamine 15 mg 15 mg ONCE STAT IV 08/10/16 14:02 08/10/16 14:03 DC 08/10/16 14:25 Ceftriaxone Sodium (Rocephin) 50 ml @ 100 mls/hr ONCE ONCE IVPB 08/10/16 15:30 08/10/16 15:59 DC 08/10/16 15:15 Potassium Chloride (Klor-Con 20) 40 meq ONCE STAT PO 08/10/16 15:18 08/10/16 15:20 DC 08/10/16 15:55 Morphine Sulfate (morphine) 4 mg ONCE STAT IV 08/10/16 15:36 08/10/16 15:44 DC 08/10/16 15:55 IV Flush 10 ml 10 ml STK-MED ONCE .ROUTE 08/10/16 16:20 08/10/16 16:21 DC 08/10/16 16:27 Sodium Chloride (NS) 100 ml @ ud STK-MED ONCE .ROUTE 08/10/16 16:20 08/10/16 16:21 DC 08/10/16 16:27 Iohexol (Omnipaque 300mg/ ml) 150 ml STK-MED ONCE .ROUTE 08/10/16 16:20 08/10/16 16:21 DC Iodixanol (Visipaque Locm) 100 ml STK-MED ONCE .ROUTE 08/10/16 16:21 08/10/16 16:22 DC 08/10/16 16:28 Procedures/MDM Urine shows signs of infection was sent for culture. CBC shows no acute findings. CMP significant for potassium of 2.9. Patient was given potassium 40 mEq by mouth. Patient was given 1 L normal saline IV, Toradol 15 mg IV. She was given morphine 4 mg IV during the ED course for persistent pain. Patient felt much better after observation and treatment. Patient has signs of UTI. Given concern for pyelonephritis and abdominal pain of uncertain etiology CT abdomen pelvis with IV contrast shows no evidence of appendicitis. There is no evidence of pyelonephritis. There is some nonspecific findings of mildly dilated common bile duct, signs of ileus although there are no symptoms to suggest ileus and she is having bowel movements symptoms are consistent with ileus.. There is no bony lesions to suggest complications from patient's sacral pain due to her fall. There is no surgical lesions appreciated. Patient is feeling better and tolerating p.o.'s and will be discharged home the course of Cipro, tramadol and Zofran instructions for clear fluids. She will be given a short course of potassium as well. Patient is advised to follow-up with primary doctor this week return to the ER for new or worsening symptoms. The patient was stable with no new complaints during the ER course. Clinically, there is no current evidence to suggest meningitis, sepsis, acute abdomen, pneumonia, acute coronary syndrome, pulmonary embolism, or any other emergent condition appearing to require further evaluation or hospitalization. The patient should certainly return for any new or worsening symptoms per the aftercare instructions. They should otherwise follow-up with her primary care doctor for reevaluation this week. Departure Diagnosis: Primary Impression: UTI (urinary tract infection) Urinary tract infection type: acute cystitis Hematuria presence: without hematuria Qualified Code: N30.00 - Acute cystitis without hematuria Additional Impression: Back pain Back pain location: low back pain Chronicity: acute Back pain laterality: left Sciatica presence: without sciatica Qualified Code: M54.5 - Acute left- sided low back pain without sciatica Condition: Stable Patient Instructions: Understanding Urinary Tract Infections (UTIs), Back Pain (Acute Or Chronic) Additional Instructions: No significant infection seen on blood work although there is infection in urine and we will treat for this. There is low potassium and will treat for this as well.. Recheck for fevers, vomiting, new worsening symptoms. See primary doctor this week for follow-up. No acute abnormality seen on CT scan. ZAK HAIDER MD Aug 10, 2016 17:05
[2016-08-10] MEDS ORDERED: POTA20TA81 PO (17:06)
[2016-08-10 17:19] VITALS: BP 134/82; PULSE 86; RESP 18; TEMP 98.6
== END 2016-08-10 17:22 | disposition home or self-care (01) ==
LOC: FTE 13:23
DX: N30.00 Acute cystitis without hematuria (principal); R11.2 Nausea with vomiting, unspecified; I10 Essential (primary) hypertension; F17.210 Nicotine dependence, cigarettes, uncomplicated; Z85.41 Personal history of malignant neoplasm of cervix uteri
CPT/HCPCS: 36415; 74177; 80053; 81001; 83690; 85025; 87086; 96361; 96374; 96375; J0696; J1885; J2270; J2405; J7030; Q9967; Z7502; Z7610

== ENCOUNTER 2016-10-10 19:27 | Emergency (ER) | payer OTHER ==
[~2016-10-10] VITALS: Wt 39.0 kg
[~2016-10-10 19:27] MED LIST changes: +CIPR500T4 PO; +ONDA8TAB14 PO; +POTA20TA81 PO; +TRAM50TA2 PO
[2016-10-10] MEDS ORDERED: ONDANSETRON (ODT) 4 MG TAB ODT STA (20:06)
[2016-10-10] MEDS ORDERED: KETOROLAC 30 MG INJ IM STA (20:06)
[2016-10-10] MEDS ORDERED: DULO30CA45 PO (20:28)
[2016-10-10] MEDS ORDERED: PARO20TA58 PO (20:28)
[2016-10-10] MEDS ORDERED: UDMYL PO (20:30)
--- NOTE | 2016-10-10 20:55 | RADRPT ---
PROCEDURE: Ultrasound Retroperitoneum. CLINICAL INDICATION: Flank pain TECHNIQUE: Becerra scale and color flow sonographic images of the kidneys and retroperitoneum were ob tained. The images were reviewed on a PACS workstation. COMPARISON: No prior studies are available for comparison. FINDINGS: The right kidney measures 9.5 cm. The left kidney measures 9.4 cm. The kidneys demonstrate normal ec hogenicity. No masses, stones or hydronephrosis are identified. The bladder is collapsed. IMPRESSION: Unremarkable kidneys. RPTAT: AA .Jaydon Tavarez MD, Date Time Electronically viewed and signed by .Jaydon Tavarez MD, MD on 10/10/2016 20:55 .P/
[2016-10-10 21:10] LABS: ADD UMIC YES; UR ASCORBIC ACID NEGATIVE (NEGATIVE); UR BILIRUBIN (Dip) NEGATIVE (NEGATIVE); UR BLOOD (Dip) 2+ mg/dL (NEGATIVE); UR CLARITY CLEAR (CLEAR); UR COLOR YELLOW (YELLOW); UR GLUCOSE (Dip) NEGATIVE (NEGATIVE); UR KETONES (Dip) NEGATIVE (NEGATIVE); UR LEUKOCYTE ESTERASE (Dip) NEGATIVE Leu/ul (NEGATIVE); UR NITRITE (Dip) NEGATIVE (NEGATIVE); UR RBC 12 /HPF (0-5); UR TOTAL PROTEIN (Dip) NEGATIVE (NEGATIVE); UR UROBILINOGEN (Dip) NEGATIVE (NEGATIVE)
[2016-10-10] MEDS ORDERED: ONDA4TAB14 PO (21:26)
[2016-10-10] MEDS ORDERED: HYDR-902 PO (21:26)
[2016-10-10 21:43] VITALS: BP 90/56; PULSE 61; RESP 16; TEMP 98.3
--- NOTE | 2016-10-10 22:16 | ERD ---
ER Documentation Chief Complaint Date/Time DATE: 10/10/16 TIME: 22:14 Chief Complaint Bilateral flank pain with Pelvic pain x4 days HPI Patient is a 48-year-old female with back pain who presents with abdominal pain and back pain. She has bilateral abdominal pain that radiates to her hips and back. She said the pain started 4 days ago. She tried [place] but ran out of [place]gar [place] 2 days ago. Upon review of old medical records the patient has multiple visits to the ER since 2006. Review of the emergency department information exchange system shows visits to 2 separate emergency departments. Her primary doctor is Dr. Flaherty. ROS All systems reviewed and are negative except as per history of present illness. Medications Home Meds Active Scripts Ondansetron (Ondansetron Odt) 4 Mg Tab.rapdis, 4 MG PO Q6H Y for NAUSEA AND/OR VOMITING, #30 TAB Prov:ZANE MARQUEZ MD 10/10/16 Hydrocodone/Acetaminophen ([place] 10-325 Tablet) 1 Each Tablet, 1 TAB PO Q6H Y for PAIN, #7 TAB Prov:ZANE MARQUEZ MD 10/10/16 Reported Medications Magaldrate/Simethicone* (Mag-Al Plus Suspension*) 30 Ml Oral.susp, 30 ML PO PRN Y for GASTROINTESTINAL UPSET, ML 10/10/16 Duloxetine Hcl* (Cymbalta*) 30 Mg Capsule.dr, 30 MG PO DAILY, CAP 10/10/16 Paroxetine Hcl* (Paxil*) 20 Mg Tablet, 20 MG PO DAILY, TAB 10/10/16 Hydrocodone/Acetaminophen ([place] 5-325 Tablet) 1 Each Tablet, 1 EACH PO DAILY Y for SEVERE PAIN LEVEL 7-10, TAB 04/14/16 Omeprazole* (Prilosec*) 20 Mg Capsule.dr, 20 MG PO DAILY, CAP 01/13/14 Discontinued Reported Medications Lorazepam* (Lorazepam*) 1 Mg Tablet, 1 MG PO BID Y for ANXIETY, #30 TAB 04/14/16 Carisoprodol* (Carisoprodol*) 350 Mg Tablet, 350 MG PO Q8 Y for MUSCLE SPASMS, TAB 04/14/16 Metoprolol Succinate* (Toprol XL*) 25 Mg Tab.sr.24h, 25 MG PO QAM, TAB 01/13/14 Oxybutynin Chloride* (Ditropan*) 5 Mg Tablet, 5 MG PO BID, TAB 01/13/14 Discontinued Scripts Potassium Chloride (Klor-Con M20) 20 Meq Tab.prt.sr, 20 MEQ PO qday for 7 Days, #7 Prov:ZAK HAIDER MD 08/10/16 Ondansetron (Ondansetron Odt) 8 Mg Tab.rapdis, 8 MG PO Q6H Y for NAUSEA AND/OR VOMITING, #10 TAB Prov:ZAK HAIDER MD 08/10/16 Tramadol HCl (Tramadol HCl) 50 Mg Tablet, 50 MG PO Q4 Y for PAIN, #20 TAB Prov:ZAK HAIDER MD 08/10/16 Ciprofloxacin Hcl* (Ciprofloxacin Hcl*) 500 Mg Tablet, 500 MG PO BID for 7 Days , TAB Prov:ZAK HAIDER MD 08/10/16 Ondansetron Hcl* (Zofran*) 4 Mg Tablet, 4 MG PO Q8H Y for NAUSEA AND/OR VOMITING , #30 TAB 0 Refills Prov:JENNIFFER GUTIERREZ 05/19/16 Acetamin/Butalbital/Caffeine* (Fioricet*) [id number] Tab, 2 TAB PO Q4H Y for PAIN LEVEL 6-10, #20 TAB 0 Refills Prov:JENNIFFER GUTIERREZ 05/19/16 Ondansetron (Ondansetron Odt) 4 Mg Tab.rapdis, 4 MG PO Q6H Y for NAUSEA AND/OR VOMITING, #10 TAB Prov:MONICA ENGLAND MD 04/14/16 Allergies Allergies: Coded Allergies: No Known Allergy (Verified , 10/10/16) PMhx/Soc History of Surgery: Yes (hysterectomy 2006) Anesthesia Reaction: No Hx Neurological Disorder: No Hx Respiratory Disorders: No Hx Cardiac Disorders: Yes (HTN, osteoarthritis) Hx Psychiatric Problems: No Hx Miscellaneous Medical Probl: Yes (HERNIATED DISK, uterine CA) Hx Alcohol Use: Yes (etoh abuse) Hx Substance Use: No Hx Tobacco Use: Yes Smoking Status: Current every day smoker FmHx Family History: No diabetes Physical Exam Vitals Vital Signs Date Time Temp Pulse Resp B/P Pulse Ox O2 Delivery O2 Flow Rate FiO2 10/10/16 21:43 98.3 61 16 90/56 98 Room Air 10/10/16 19:43 99.4 98 20 115/69 98 Physical Exam Const: Moderate distress secondary to pain Head: Atraumatic Eyes: Normal Conjunctiva ENT: Normal External Ears, Nose and Mouth. Neck: Full range of motion..~ No meningismus. Resp: Clear to auscultation bilaterally Cardio: Regular rate and rhythm, no murmurs Abd: Soft, diffuse tenderness to palpation without rebound or guarding Skin: No petechiae or rashes Back: No midline or flank tenderness Ext: No cyanosis, or edema Neur: Awake and alert Psych: Normal Mood and Affect Results 24 hrs Laboratory Tests Test 10/10/16 19:59 Urine Color YELLOW Urine Clarity CLEAR Urine pH 8.0 Urine Specific [place] 1.010 Urine Ketones NEGATIVEmg/dL Urine Nitrite NEGATIVEmg/dL Urine Bilirubin NEGATIVEmg/dL Urine Urobilinogen NEGATIVEmg/dL Urine Leukocyte Esterase NEGATIVELeu/ul Urine Microscopic RBC 12/HPF Urine Microscopic WBC 0/HPF Urine Hemoglobin 2+mg/dL Urine Glucose NEGATIVEmg/dL Urine Total Protein NEGATIVEmg/dl Current Medications Medications (Trade) Dose Ordered Sig/Yuliya Route PRN Reason Start Time Stop Time Status Last Admin Dose Admin Ketorolac Tromethamine (Toradol) 30 mg ONCE STAT IM 10/10/16 20:06 10/10/16 20:07 DC 10/10/16 20:22 Ondansetron HCl (Zofran Odt) 4 mg ONCE STAT ODT 10/10/16 20:06 10/10/16 20:07 DC 10/10/16 20:22 Procedures/MDM Ultrasound of the kidneys are normal per radiology. Urinalysis shows no signs of acute infection. Smoking Cessation Therapy: Pt. was lectured for greater than 3 minutes on the health risks of continued smoking and the benefits of cessation. Patient is a 56-year-old female with chronic pain who presents with abdominal pain and flank pain. She has multiple visits to the ER for pain complaints. I do not believe she requires further workup and I think the risks of CT scan radiation outweigh the benefits in this case. She has had multiple CT scans done in the past. The patient will be discharged home with a short course of [place] and Zofran. She was given Toradol in the emergency department. I doubt appendicitis, cholecystitis, pancreatitis, or bowel obstruction. The patient can return for any worsening symptoms. Departure Diagnosis: Primary Impression: Abdominal pain Abdominal location: generalized Qualified Code: R10.84 - Generalized abdominal pain Additional Impression: Flank pain Condition: Fair Patient Instructions: Abdominal Pain, Flank Pain, Uncertain Cause Additional Instructions: FOLLOW UP WITH YOUR PRIMARY CARE PHYSICIAN TOMORROW.Return to this facility if you are not improving as expected. ZANE MARQUEZ MD Oct 10, 2016 22:16
== END 2016-10-10 21:44 | disposition home or self-care (01) ==
LOC: E/R 19:27
DX: R10.84 Generalized abdominal pain (principal); I10 Essential (primary) hypertension; F17.210 Nicotine dependence, cigarettes, uncomplicated; Z85.42 Personal history of malignant neoplasm of other parts of uterus
CPT/HCPCS: 76775; 81001; 96372; J1885; Z7502; Z7610

== ENCOUNTER 2017-01-11 01:50 | Inpatient (IN) | payer OTHER ==
[~2017-01-11] VITALS: Ht 152.4 cm; Wt 36.0 kg
[~2017-01-11 01:50] MED LIST changes: -CARI350T29 PO; -CIPR500T4 PO; +DULO30CA45 PO; -FIORICET PO; +HYDR-902 PO; -LORA1TAB PO; -METO25TA7 PO; -ONDA4TAB8 PO; -ONDA8TAB14 PO; -OXYB5TAB7 PO; +PARO20TA58 PO; -POTA20TA81 PO; -TRAM50TA2 PO; +UDMYL PO
[2017-01-11] MEDS ORDERED: morphine 2 MG INJ IV STA (02:40)
[2017-01-11] MEDS ORDERED: SOD CHLORIDE 0.9% 500 ML IV STA (02:40)
[2017-01-11] MEDS ORDERED: KETOROLAC 30 MG INJ IV STA (02:40)
[2017-01-11 02:59] VITALS: TEMP 99.4
[2017-01-11] MEDS ORDERED: ONDANSETRON 4 MG INJ IV STA (03:29)
[2017-01-11 03:51] LABS: ALBUMIN 4.4 g/dl (3.3-4.9); ALBUMIN/GLOBULIN RATIO 1.29; BILIRUBIN,INDIRECT 0.2 mg/dl (0-1.1); BILIRUBIN,TOTAL 0.2 mg/dl (0.2-1.3); CALCIUM 9.1 mg/dl (8.4-10.2); CREATININE 0.61 mg/dl (0.44-1.00); TOTAL PROTEIN 7.8 g/dl (6.1-8.1)
[2017-01-11 04:04] LABS: BASOPHILS % 0.6 % (0.0-2.0); EOSINOPHILS % 0.6 % (0.0-7.0); HEMATOCRIT 36.4 % (37.0-47.0); HEMOGLOBIN 13.1 g/dl (12.0-16.0); LYMPHOCYTES # 1.3 10^3/ul (0.8-2.9); LYMPHOCYTES % 17.8 % (15.0-51.0); MEAN CORPUSCULAR VOLUME 91.7 fl (82.0-101.0); MEAN PLATELET VOLUME 9.4 fl (7.4-10.4); MONOCYTE # 1.4 10^3/ul (0.3-0.9); MONOCYTES % 20.2 % (0.0-11.0); NEUTROPHIL # 4.2 10^3/ul (1.6-7.5); NEUTROPHILS % 58.7 % (39.0-77.0); PLATELET COUNT 395 10^3/UL (140-415); RED BLOOD COUNT 3.97 10^6/ul (4.20-5.40); RED CELL DISTRIBUTION WIDTH 13.9 % (11.5-14.5); WHITE BLOOD COUNT 7.1 10^3/ul (4.8-10.8)
--- NOTE | 2017-01-11 04:11 | ERD ---
ER Documentation Chief Complaint Chief Complaint rib pain bilat front ribs s/p fall 2 days ago HPI This 56-year-old female states that she fell 2 days ago onto her tailbone when she tripped with no preceding neurological deficits or chest pain and she currently has pain of her anterior ribs. Also has a headache and states that she thinks she might have hit her head. Denies any neck pain. Denies any specific back pain. States that she just feels "terrible" in general. No fever chills. ROS All systems reviewed and are negative except as per history of present illness. Medications Home Meds Active Scripts Ondansetron (Ondansetron Odt) 4 Mg Tab.rapdis, 4 MG PO Q6H Y for NAUSEA AND/OR VOMITING, #30 TAB Prov:ZANE MARQUEZ MD 10/10/16 Hydrocodone/Acetaminophen ([place] 10-325 Tablet) 1 Each Tablet, 1 TAB PO Q6H Y for PAIN, #7 TAB Prov:ZANE MARQUEZ MD 10/10/16 Reported Medications Magaldrate/Simethicone* (Mag-Al Plus Suspension*) 30 Ml Oral.susp, 30 ML PO PRN Y for GASTROINTESTINAL UPSET, ML 10/10/16 Duloxetine Hcl* (Cymbalta*) 30 Mg Capsule.dr, 30 MG PO DAILY, CAP 10/10/16 Paroxetine Hcl* (Paxil*) 20 Mg Tablet, 20 MG PO DAILY, TAB 10/10/16 Hydrocodone/Acetaminophen ([place] 5-325 Tablet) 1 Each Tablet, 1 EACH PO DAILY Y for SEVERE PAIN LEVEL 7-10, TAB 04/14/16 Omeprazole* (Prilosec*) 20 Mg Capsule.dr, 20 MG PO DAILY, CAP 01/13/14 Allergies Allergies: Coded Allergies: No Known Allergy (Verified , 10/10/16) PMhx/Soc History of Surgery: Yes (hysterectomy 2006) Anesthesia Reaction: No Hx Neurological Disorder: No Hx Respiratory Disorders: No Hx Cardiac Disorders: Yes (HTN, osteoarthritis) Hx Psychiatric Problems: No Hx Miscellaneous Medical Probl: Yes (HERNIATED DISK, uterine CA) Hx Alcohol Use: Yes (etoh abuse " once every 3 mo") Hx Substance Use: No Hx Tobacco Use: Yes Smoking Status: Current every day smoker Physical Exam Vitals Vital Signs Date Time Temp Pulse Resp B/P Pulse Ox O2 Delivery O2 Flow Rate FiO2 01/11/17 05:51 97 15 112/85 98 Room Air 01/11/17 04:36 104 13 110/71 100 Room Air 01/11/17 02:59 99.4 105 14 106/80 100 Room Air 01/11/17 01:52 99.4 62 19 117/53 100 Physical Exam Const: [] Mild distress, appears uncomfortable Head: Atraumatic Eyes: Normal Conjunctiva, EOMI, PERRLA ENT: Normal External Ears, Nose and Mouth. Neck: Full range of motion..~ No meningismus. Resp: Clear to auscultation bilaterally Cardio: Regular rate and rhythm, no murmurs Chest wall exam: Patient states that she has tenderness of her left anterior ribs. She states that she is tender on palpation of every single rib of both left and right lower and left and right upper ribs. There is no deformity. Abd: Soft, non tender, non distended. Normal bowel sounds Skin: No petechiae or rashes Back: No midline or flank tenderness Ext: No cyanosis, or edema Neur: Awake and alert 3, cranial 2 through 12 intact, no cerebellar deficits. Psych: Mildly anxious Result Diagram: 01/11/1730901/11/17309 Results 24 hrs Laboratory Tests Test 01/11/17 03:10 01/11/17 03:40 White Blood Count 7.110^3/ul Red Blood Count 3.9710^6/ul Hemoglobin 13.1g/dl Hematocrit 36.4% Mean Corpuscular Volume 91.7fl Mean Corpuscular Hemoglobin 33.0pg Mean Corpuscular Hemoglobin Concent 36.0g/dl Red Cell Distribution Width 13.9% Platelet Count 06155^3/UL Mean Platelet Volume 9.4fl Neutrophils % 58.7% Lymphocytes % 17.8% Monocytes % 20.2% Eosinophils % 0.6% Basophils % 0.6% Nucleated Red Blood Cells % 0.0/100WBC Neutrophils # 4.210^3/ul Lymphocytes # 1.310^3/ul Monocytes # 1.410^3/ul Eosinophils # 0.010^3/ul Basophils # 0.010^3/ul Nucleated Red Blood Cells # 0.010^3/ul Sodium Level 133mmol/L Potassium Level 3.0mmol/L Chloride Level 81mmol/L Carbon Dioxide Level 33mmol/L Anion Gap 22 Blood Urea Nitrogen 9mg/dl Creatinine 0.61mg/dl Glucose Level 108mg/dl Calcium Level 9.1mg/dl Total Bilirubin 0.2mg/dl Direct Bilirubin 0.00mg/dl Indirect Bilirubin 0.2mg/dl Aspartate Amino Transf (AST/SGOT) 62IU/L Alanine Aminotransferase (ALT/SGPT) 59IU/L Alkaline Phosphatase 129IU/L Total Protein 7.8g/dl Albumin 4.4g/dl Globulin 3.40g/dl Albumin/Globulin Ratio 1.29 Lipase 4364U/L Urine Color YELLOW Urine Clarity CLEAR Urine pH 7.0 Urine Specific [place] 1.004 Urine Ketones TRACEmg/dL Urine Nitrite NEGATIVEmg/dL Urine Bilirubin NEGATIVEmg/dL Urine Urobilinogen NEGATIVEmg/dL Urine Leukocyte Esterase 1+Ambreen/ul Urine Microscopic RBC 13/HPF Urine Microscopic WBC 2/HPF Urine Bacteria FEW/HPF Urine Hemoglobin 3+mg/dL Urine Glucose NEGATIVEmg/dL Urine Total Protein NEGATIVEmg/dl Current Medications Medications (Trade) Dose Ordered Sig/Yuliya Route PRN Reason Start Time Stop Time Status Last Admin Dose Admin Sodium Chloride (NS) 500 ml @ 500 mls/hr Q1H STAT IV 01/11/17 02:40 01/11/17 03:39 DC 01/11/17 03:22 Morphine Sulfate (morphine) 2 mg ONCE STAT IV 01/11/17 02:40 01/11/17 02:43 DC 01/11/17 03:22 Ketorolac Tromethamine (Toradol) 30 mg ONCE STAT IV 01/11/17 02:40 01/11/17 02:43 DC 01/11/17 03:22 Ondansetron HCl (Zofran Inj) 4 mg ONCE STAT IV 01/11/17 03:29 01/11/17 03:30 DC 01/11/17 03:40 Potassium Chloride (Klor-Con 20) 40 meq ONCE ONCE PO 01/11/17 04:13 01/11/17 04:14 DC 01/11/17 04:18 Morphine Sulfate 4 mg 4 mg ONCE STAT IV 01/11/17 04:52 01/11/17 04:53 DC 01/11/17 05:04 Ceftriaxone Sodium 50 ml @ 100 mls/hr ONCE ONCE IVPB 01/11/17 05:00 01/11/17 05:29 DC 01/11/17 05:04 Sodium Chloride (NS) 1,000 ml @ 1,000 mls/hr Q1H ONCE IV 01/11/17 07:00 01/11/17 07:59 DC 01/11/17 07:16 Hydromorphone HCl (Dilaudid) 1 mg ONCE STAT IV 01/11/17 07:06 01/11/17 07:07 DC 01/11/17 07:13 IV Flush 10 ml 10 ml STK-MED ONCE .ROUTE 01/11/17 07:23 01/11/17 07:24 DC Sodium Chloride (NS) 100 ml @ ud STK-MED ONCE .ROUTE 01/11/17 07:23 01/11/17 07:24 DC Iohexol (Omnipaque 300mg/ ml) 150 ml STK-MED ONCE .ROUTE 01/11/17 07:23 01/11/17 07:24 DC Procedures/MDM Patient with severe rib pain secondary to rib fractures secondary to trauma also with pancreatitis with significantly elevated lipase. She was hydrated with 2 L of normal saline emergency room and given 4 g of morphine after which her pain returned and needed another 4 mg of morphine. She is also splinting in order to allow her to breathe properly and prevent pneumonia believe she needs to be admitted for pain control as well as for workup of her pancreatitis. CT with contrast is pending to look for any traumatic injury in the abdominal organs other the patient had no tenderness on abdominal exam. Admits to drinking alcohol occasionally and pancreatitis may be related to this. Ultrasound is also pending. Patient was given a K-Dur for her low potassium which she was able to take p.o. with no problem. Rib series x-ray interpretation: Fractures of the 10th and 11th ribs are acute, no other acute fractures. Normal lung parenchyma. Chest x-ray interpretation: Acute fracture of the 10th 11th ribs, no pneumothorax, no infiltrate, no pulmonary edema. Brain CT interpretation: I see no acute process. I see no hemorrhage, no mass- effect no midline shift, no skull fracture. EKG interpretation: Pannus origin of rhythm with no ST elevations or depressions concerning for acute ischemia Right upper quadrant ultrasound interpretation: No gallstones or dilated bile duct. No signs of acute pathology and right upper quadrant. Normal appearance of pancreas on ultrasound. Departure Diagnosis: Primary Impression: Pancreatitis Additional Impressions: Multiple rib fractures Hypokalemia Condition: Serious DIONINAHOMIFRIEDA SCHULZ Jan 11, 2017 04:11
[2017-01-11] MEDS ORDERED: POTASSIUM CHLORIDE (SR) 20 MEQ TAB PO ONE (04:13)
--- NOTE | 2017-01-11 04:37 | RADRPT ---
PROCEDURE: CT BRAIN WITHOUT CONTRAST CLINICAL INDICATION: 56-year-old female with headaches and trauma. TECHNIQUE: The study was performed utilizing [employer] VCT 64-slice CT scanner. Direct axial sections were obtained from the foramen magnum to the vertex without the use of intravenous contrast material. Sagittal and coronal reformations were obtained. One or more the following dose reduction techniques were utilized: automated exposure control, adjustment of the mA and/or kV according to p atient's size and/or use of iterative reconstruction technique. DICOM images are available. The imag es were viewed on a PACS workstation. CTD/vol = 45.0 mGy; Total Exam DLP = 720.2 mGy-cm. COMPARISON: CT brain May 19, 2016. FINDINGS: There is mild prominence of the sulci and cisternal spaces consistent with volume loss with compensa tory ventricular enlargement. The ventricular configuration is without significant interval change. There is no evidence for mass effect or midline shift. There are periventricular areas of decreased density consistent with microangiopathic ischemic changes. There is no evidence for acute intra or extra-axial blood. The bony calvarium is intact. There is mild mucosal thickening within the parti ally visualized superior right maxillary sinus. No air-fluid levels are noted. The mastoid air cells are without significant soft tissue. IMPRESSION: 1. Mild diffuse volume loss. 2. Microangiopathic ischemic changes. 3. Mild mucosal thickening partially visualized superior right maxillary sinus. .Yusuf Campoverde MD, Date Time Electronically viewed and signed by .Yusuf Campoverde MD, on 01/11/2017 04:36 .[place]/
--- NOTE | 2017-01-11 04:44 | RADRPT ---
PROCEDURE: BILATERAL RIB SERIES - 8 VIEWS CLINICAL INDICATION: 56-year-old female with chest pain following trauma. TECHNIQUE: Multiple oblique views of the right and left ribs were obtained. The images were revie wed on a PACS workstation. COMPARISON: Chest x-ray January 11, 2017; chest x-ray/left ribs October 29, 2014. FINDINGS: There are fractures identified involving the right tenth and eleventh ribs anteriorly proximal to th e costochondral junction regions. There appear to be old fracture deformities involving the right se venth and eighth ribs in the midaxillary line. There is mild deformity within the mid left seventh r ib presumably from prior fracture. Chronic lung changes are present with mild biapical scarring. The re is no evidence for a pneumothorax. IMPRESSION: 1. Acute anterior right 10th and 11th rib fracture deformities proximal to the costochondral juncti ons. 2. Old right seventh and eighth rib fractures. 3. Chronic lung changes. .Yusuf Campoverde MD, MD Date Time Electronically viewed and signed by .Yusuf Campoverde MD, on 01/11/2017 04:44 .M/
--- NOTE | 2017-01-11 04:46 | RADRPT ---
PROCEDURE: CHEST - 1 VIEW CLINICAL INDICATION: 56-year-old female with chest/abdominal pain. TECHNIQUE: A single frontal AP semi-erect portable view of the chest was performed. The images we re reviewed on a PACS workstation. COMPARISON: Chest x-ray April 14, 2016; bilateral rib series obtained concurrently. FINDINGS: The cardiomediastinal silhouette within normal limits. Chronic lung changes are present with minimal biapical scarring. There is no evidence for an infiltrate. There is no evidence for congestive he art failure. There is no evidence for pneumothorax. There are acute fractures identified involving t he right tenth and eleventh ribs anteriorly IMPRESSION: 1. Chronic lung changes with minimal biapical scarring. 2. Acute right anterior tenth and eleventh rib fracture deformities. .Yusuf Campoverde MD, Date Time Electronically viewed and signed by .Yusuf Campoverde MD, on 01/11/2017 04:45 .M/
[2017-01-11] MEDS ORDERED: morphine 4 MG/ML VIAL IV STA (04:52)
[2017-01-11 04:54] LABS: ADD UMIC YES; UR ASCORBIC ACID NEGATIVE (NEGATIVE); UR BACTERIA FEW /HPF (NONE SEEN); UR BILIRUBIN (Dip) NEGATIVE (NEGATIVE); UR BLOOD (Dip) 3+ mg/dL (NEGATIVE); UR CLARITY CLEAR (CLEAR); UR COLOR YELLOW (YELLOW); UR GLUCOSE (Dip) NEGATIVE (NEGATIVE); UR KETONES (Dip) TRACE mg/dL (NEGATIVE); UR LEUKOCYTE ESTERASE (Dip) 1+ Leu/ul (NEGATIVE); UR NITRITE (Dip) NEGATIVE (NEGATIVE); UR RBC 13 /HPF (0-5); UR SPECIFIC GRAVITY (Dip) 1.004 (1.003-1.030); UR TOTAL PROTEIN (Dip) NEGATIVE (NEGATIVE); UR UROBILINOGEN (Dip) NEGATIVE (NEGATIVE)
[2017-01-11] MEDS ORDERED: CEFTRIAXONE 1 GM/50 ML (PMX) 50 ML IVPB ONE (05:00)
[2017-01-11] MEDS ORDERED: SOD CHLORIDE 0.9% 1,000 ML IV ONE (07:00)
[2017-01-11] MEDS ORDERED: HYDROmorphONE 1 MG/ML SYG IV STA (07:06)
[2017-01-11] MEDS ORDERED: SOD CHLORIDE 0.9% 100 ML ONE (07:23)
[2017-01-11] MEDS ORDERED: IOHEXOL 300MG/ML 150 ML BTL ONE (07:23)
--- NOTE | 2017-01-11 07:30 | RADRPT ---
PROCEDURE: Right Upper Quadrant Ultrasound. CLINICAL INDICATION: lipase 4000 TECHNIQUE: Multiple real-time images were acquired of the patient's right upper quadrant abdomen a nd retroperitoneum utilizing a high resolution transducer. COMPARISON: None FINDINGS: The liver measures 12.4 cm, and demonstrates increased echogenicity. The main portal vein is patent with proper directional flow. There is no intrahepatic biliary ductal dilatation. The extrahepatic c ommon bile duct measures 6 mm. The gallbladder is without stones, wall thickening, or pericholecystic fluid. The visualized pancreas is unremarkable. The right kidney measures 9.7 x 3.8 cm and demonstrates normal echotexture. There is no right renal calculus or hydronephrosis. The visualized abdominal aorta and IVC are grossly unremarkable. IMPRESSION: Moderate to severe fatty infiltration of the liver. No cholelithiasis or acute cholecystitis. Normal CBD. The visualized pancreas is unremarkable although ultrasound is insensitive in the detection of pancr eatic pathology. RPTAT: EE Physician Xiang Date Time Electronically viewed and signed by Physician Xiang on 01/11/2017 07:29 /
--- NOTE | 2017-01-11 08:11 | RADRPT ---
PROCEDURE: CT Abdomen and Pelvis with contrast. CLINICAL INDICATION: Abdominal and pelvic pain. Recent trauma. Elevated lipase. TECHNIQUE: CT scan of the abdomen and pelvis with contrast was performed. The patient was scanned following the uncomplicated intravenous administration of 85 cc of Omnipaque-300. Coronal and sagit vasyl reformatted images were obtained from the axial source images. Images were reviewed on a [email or web address] PACS workstation. Total exam DLP is 157.07 mGy-cm. CTDIvol is 2.86 mGy. One or more of t he following dose reduction techniques were used: Automated exposure control, adjustment of the mA a nd/or kV according to patient size, use of iterative reconstruction technique. DICOM images are Kwanji lable. COMPARISON: 08/10/2016. FINDINGS: There is mild linear scarring or atelectasis at the left lung base posteriorly. The lung bases are o therwise normal. There is no pleural effusion or pericardial effusion. The heart size is normal. The liver is enlarged and diffusely decreased in attenuation consistent with fatty metamorphosis. Th ere is no focal hepatic lesion. The gallbladder is unremarkable. The common bile duct is mildly dilated measuring 6 mm. No obstructi ng lesion is visualized. The spleen is normal in size. There is no focal splenic lesion. Both adrenals are normal with no enlargement or mass. The pancreas is unremarkable with no mass or evidence of pancreatitis. Both kidneys demonstrate normal contrast enhancement. There is no renal mass or hydronephrosis. The abdominal aorta is not dilated. There is no retroperitoneal lymphadenopathy or mass. There is no pelvic lymphadenopathy or mass. The bladder and distal ureters are normal. The periappendiceal region is unremarkable with no evidence of appendicitis. The bowel and mesentery are normal. There is no free fluid or free gas. The osseous structures are unremarkable with no fracture or lytic lesion. IMPRESSION: 1. Mild linear scarring or atelectasis at the left lung base posteriorly. 2. Hepatomegaly. 3. Fatty metamorphosis of the liver. 4. Mildly dilated common bile duct with no obstructing lesion visualized. Clinical correlation advi sed. 5. Otherwise unremarkable contrast enhanced CT scan of the abdomen and pelvis. RPTAT: QQ .Osmany Cruz MD, Date Time Electronically viewed and signed by .Osmany Cruz MD, on 01/11/2017 08:11 .R/
[2017-01-11] MEDS ORDERED: POTASSIUM CHLORIDE 250 ML IVPB ONE (10:00)
[2017-01-11] MEDS ORDERED: NACL 0.9% 3 ML SYG IV SCH (10:00)
[2017-01-11] MEDS: SOD CHLORIDE 0.9% 1,000 ML IV SCH ×2 (10:00→18:00)
--- NOTE | 2017-01-11 10:16 | HP ---
Date/Time of Note Date/Time of Note DATE: 01/11/17 TIME: 10:12 Assessment/Plan VTE Prophylaxis VTE Prophylaxis Intervention: SCD's Assessment/Plan Chief Complaint/Hosp Course 1. Acute anterior right 10th and 11th rib fractures secondary to ground-level fall. The patient will be provided with adequate pain control. Thoracic surgery will be consulted. The patient's rib fractures are stable and not displaced. The patient denied any dyspnea. 2. Acute pancreatitis. Etiology could be alcohol induced. The patient's abdominal ultrasound showed no cholelithiasis and normal common bile duct. The patient's CT scan of the abdomen and pelvis showed mildly dilated common bile with with no obstructing lesion visualized. Will also obtain a fasting lipid panel to evaluate for any underlying hypertriglyceridemia, which is highly unlikely. 3. Alcoholism. The patient will be continued on as needed benzodiazepines for any alcohol withdrawal delirium. The patient will be started on tapering dose of Librium. 4. Cachexia. Etiology unclear. Will obtain a prealbumin level. Will encourage high protein intake once patient is able to tolerate oral intake. 5. Metabolic alkalosis. Most probably secondary to acid loss from multiple episodes of vomiting. The patient's alkalosis will be corrected gradually. 6. Anxiety disorder. The patient will be maintained on anxiolytics. Plan: The patient will be admitted to inpatient medical surgical floor. The patient will be kept NPO except for medications. The patient will be started on DVT prophylaxis and gastrointestinal prophylaxis. The patient will remain a full code. Activities will be as tolerated. The rest of the patient's management will be based on the clinical course, inputs from consultants, and the results of diagnostic studies. Based on the patient's clinical presentation, she most probably requires at least 2 midnights''s stay for further management and evaluation of her clinical presentation. The case and management of this patient was fully discussed with Dr. Colon. Problems: HPI/ROS Admit Date/Time Admit Date/Time Hx of Present Illness Reason for admission: Chest wall pain secondary to ground-level fall at home, abdominal pain. This is a 56-year-old female with past medical history of uterine cancer, status post hysterectomy, alcoholism, and chronic back pain, who came to the emergency room with complaint of rib pain status post fall at home approximately 2 days ago. The patient verbalized that she was trying to get up from a toilet seat and she fell backwards. The patient was unclear about any loss of consciousness associated with the fall. It is also unclear why the patient waited for 2 days before she sought medical attention. The patient verbalized that she hit her head. The patient was also complaining of multiple episodes of nonbilious, nonbloody vomiting. The patient denied any diarrhea. The patient had evidence of pancreatitis with a lipase level of 4364. The patient underwent a bilateral rib series that showed acute anterior right 10th and 11th rib fractures. Her brain CT was negative for any acute findings. The patient was treated with IV analgesics, IV antibiotics, and potassium supplements in the emergency room. ROS Constitutional: chills, poor po Eyes: no complaints ENT: no complaints Respiratory: no complaints Cardiovascular: no complaints Gastrointestinal: nausea, pain, vomiting Genitourinary: no complaints Musculoskeletal: back pain, other (Right rib cage pain.) Skin: no complaints Neurologic: no complaints Endocrine: no complaints Lymphatic: no complaints Psychological: anxiety, depression Immunologic: no complaints PMH/Family/Social Past Medical History Medical History: other (Dpression, anxiety, chronic back pain, alcoholism, uterine cancer) Past Surgical History Past Surgical Hx: other (hysterectomy) Social History Lives at home. Alcohol Use: heavy Smoking Status: Current every day smoker Drug Use: none Exam/Review of Systems Vital Signs Vitals Vital Signs Date Time Temp Pulse Resp B/P Pulse Ox O2 Delivery O2 Flow Rate FiO2 01/11/17 05:51 97 15 112/85 98 Room Air 01/11/17 02:59 99.4 Exam Exam General: Thin, frail looking, 56 year-old female lying in bed in no apparent distress. HEENT: Normocephalic, atraumatic. Eyes: Anicteric sclerae, conjunctivae clear. ENT: Nasal septum midline, oral mucosa moist. Neck supple, no JVD noticed. Respiratory: Bilaterally clear breath sounds. No use of accessory muscles of respiration. No adventitious breath sounds. Cardiovascular: S1, S2 heard. No murmurs or gallops. Abdomen: Soft, nontender, and nondistended. Bowel sounds positive in all 4 quadrants. Genitourinary: Deferred. Extremities: No cyanosis, no clubbing, no edema. Peripheral pulses palpable. Neurologic: Cranial nerves II through XII grossly intact. The patient is awake, alert, and oriented. Skin: Normal skin turgor. No skin rashes. Labs Result Diagram: 01/11/1730901/11/17 031 Medications Medications Current Medications Ondansetron HCl (Zofran Inj) 4 mg Q6H PRN IV NAUSEA AND/OR VOMITING; Start 01/17 at 10:00 Acetaminophen/ Hydrocodone Bitart ([place] (5/325)) 1 tab Q6H PRN PO PAIN LEVEL 4 -6; Start 01/11/17 at 10:00 Morphine Sulfate (morphine) 2 mg Q4H PRN IV PAIN LEVEL 7-10; Start 01/11/17 at 10:00 Famotidine (Pepcid Iv) 20 mg Q12 IV ; Start 01/11/17 at 21:00 Lorazepam 1 mg 1 mg Q2H PRN IV Anxiety; Start 01/11/17 at 10:00 Potassium Chloride 250 ml @ 62.5 mls/hr ONCE ONCE IVPB ; Start 01/11/17 at 10 :00; Stop 01/11/17 at 13:59 Sodium Chloride (NS) 1,000 ml @ 125 mls/hr Q8H IV ; Start 01/11/17 at 10:00 Procedures Procedures B/L Rib Series IMPRESSION: 1. Acute anterior right 10th and 11th rib fracture deformities proximal to the costochondral junctions. 2. Old right seventh and eighth rib fractures. 3. Chronic lung changes. EROS HOPE NP Jan 11, 2017 10:16
[2017-01-11] MEDS: ONDANSETRON 4 MG INJ IV PRN (10:20)
[2017-01-11] MEDS: LORAZEPAM 2 MG INJ IV PRN (10:21)
[2017-01-11] MEDS: morphine 2 MG INJ IV PRN ×3 (10:21→18:33)
[2017-01-11] MEDS: FAMOTIDINE 20 MG INJ IV SCH (10:22)
[2017-01-11 13:16] VITALS: BP 104/61; RESP 18
[2017-01-11 14:07] VITALS: Ht 152.4 cm; Wt 36.0 kg
[2017-01-11 14:10] LABS: OPIATES Negative (NEGATIVE)
[2017-01-11 14:11] LABS: BARBITURATES Negative (NEGATIVE); BENZODIAZEPINES Negative (NEGATIVE); CANNABINOIDS Negative (NEGATIVE); COCAINE Negative (NEGATIVE)
[2017-01-11] MEDS: CHLORDIAZEPOXIDE 25 MG CAP PO SCH ×2 (14:54→20:18)
[2017-01-11] MEDS: FOLIC ACID 1 MG TAB PO SCH (14:54)
[2017-01-11] MEDS: MULTIVITAMINS 10 ML, THIAMINE 100 MG in SOD CHLORIDE 0.9% 1,000 ML IVPB SCH (17:28)
[2017-01-11 19:51] VITALS: BP 95/53; RESP 20
[2017-01-11] MEDS: HYDROCODONE/APAP (5/325) TAB PO PRN (20:18)
--- NOTE | 2017-01-11 21:40 | CONS ---
DATE OF ADMISSION: 01/11/2017 DATE OF CONSULTATION: REASON FOR CONSULTATION: Evaluation for rib fracture. HISTORY OF PRESENT ILLNESS: This is a 56-year-old female status post fall, who was found to have an terior 10th and 11th rib fractures, currently being admitted for observation. She is hemodynamicall y stable and hemoglobin is stable at 13. PAST MEDICAL HISTORY: Hypertension, hyperlipidemia, alcoholism, cachexia, anxiety disorder, pancrea titis. PAST SURGICAL HISTORY: None. ALLERGIES: NONE. SOCIAL HISTORY: No smoking, drinking or drug use. MEDICATIONS: List reviewed. PHYSICAL EXAMINATION: VITAL SIGNS: Blood pressure is 95/53, pulse is 87, respirations 20, saturations 97% on room air. CARDIOVASCULAR: Normal S1, S2. LUNGS: Clear. ABDOMEN: Soft. EXTREMITIES: Warm. LABORATORY VALUES: Hemoglobin 13. IMPRESSION: Rib fractures. RECOMMENDATIONS: Will plan for surgery. Will continue pulmonary toilet. Followup chest x-ray. Dictated By: ARASH XIONG/MYAH Conf#: [id number] DID#: [id number]
[2017-01-12 01:43] VITALS: BP 99/63; RESP 20
[2017-01-12] MEDS: morphine 2 MG INJ IV PRN ×3 (01:52→10:35)
[2017-01-12] MEDS: SOD CHLORIDE 0.9% 1,000 ML IV SCH ×4 (01:53→20:47)
[2017-01-12] MEDS: ONDANSETRON 4 MG INJ IV PRN (02:08)
[2017-01-12] MEDS: HYDROCODONE/APAP (5/325) TAB PO PRN (05:02)
[2017-01-12] MEDS: LORAZEPAM 2 MG INJ IV PRN ×3 (05:42→23:53)
[2017-01-12 06:15] LABS: BASOPHIL # 0.1 10^3/ul (0.0-0.1); BASOPHILS % 0.7 % (0.0-2.0); EOSINOPHILS # 0.1 10^3/ul (0.0-0.5); EOSINOPHILS % 1.1 % (0.0-7.0); HEMATOCRIT 30.9 % (37.0-47.0); HEMOGLOBIN 10.3 g/dl (12.0-16.0); LYMPHOCYTES # 1.6 10^3/ul (0.8-2.9); LYMPHOCYTES % 20.8 % (15.0-51.0); MEAN CORPUSCULAR HEMOGLOBIN 33.3 pg (29.0-33.0); MEAN CORPUSCULAR HGB CONC 33.3 g/dl (32.0-37.0); MEAN PLATELET VOLUME 9.9 fl (7.4-10.4); MONOCYTE # 0.7 10^3/ul (0.3-0.9); MONOCYTES % 9.7 % (0.0-11.0); NEUTROPHILS % 66.5 % (39.0-77.0); PLATELET COUNT 373 10^3/UL (140-415); RED BLOOD COUNT 3.09 10^6/ul (4.20-5.40); RED CELL DISTRIBUTION WIDTH 14.5 % (11.5-14.5); WHITE BLOOD COUNT 7.6 10^3/ul (4.8-10.8)
[2017-01-12 06:22] LABS: INR 1.04; PROTIME 13.6 Sec (12.2-14.2); PT RATIO 1.1
[2017-01-12 06:37] LABS: ALBUMIN/GLOBULIN RATIO 1.07; BILIRUBIN,INDIRECT 0.1 mg/dl (0-1.1); BILIRUBIN,TOTAL 0.1 mg/dl (0.2-1.3); CALCIUM 8.7 mg/dl (8.4-10.2); CREATININE 0.48 mg/dl (0.44-1.00); POTASSIUM 4.2 mmol/L (3.5-5.1); TOTAL PROTEIN 5.8 g/dl (6.1-8.1)
[2017-01-12 07:49] VITALS: BP 106/61; RESP 20
[2017-01-12 07:53] LABS: CHOL/HDL RATIO 1.8 RATIO; MAGNESIUM 1.4 mg/dl (1.7-2.5); PHOSPHORUS 3.8 mg/dl (2.5-4.9)
[2017-01-12 08:36] LABS: THYROID STIMULATING HORMONE 1.87 MIU/L (0.465-4.680)
[2017-01-12] MEDS: FAMOTIDINE 20 MG INJ IV SCH ×2 (09:10→20:42)
[2017-01-12] MEDS: THIAMINE 100 MG TAB PO SCH (09:10)
[2017-01-12] MEDS: FOLIC ACID 1 MG TAB PO SCH (09:10)
[2017-01-12] MEDS: CHLORDIAZEPOXIDE 25 MG CAP PO SCH ×3 (09:10→20:42)
[2017-01-12] MEDS: MULTIVITAMINS 10 ML, THIAMINE 100 MG in SOD CHLORIDE 0.9% 1,000 ML IVPB SCH (10:35)
--- NOTE | 2017-01-12 11:18 | PN ---
Date/Time of Note Date/Time of Note DATE: 01/12/17 TIME: 11:14 Assessment/Plan VTE Prophylaxis VTE Prophylaxis Intervention: SCD's Lines/Catheters IV Catheter Type (from Nrs): Peripheral IV Assessment/Plan Chief Complaint/Hosp Course Assessment and plan 1. Acute anterior right 10th and left 11th rib fracture secondary to ground- level fall. Continue with analgesics. Will adjust as needed. Thoracic surgeon is following. Tentative plan for surgical intervention. Will follow up. 2. Acute acute pancreatitis. Suspect secondary to alcoholism. Lipase level downward trending. Continue with analgesics. Continue IV hydration. Will advance diet once pain improves. 3. Alkalosis. Cessation advised. Continue on banana bag and benzodiazepine as needed for possible withdrawal. 4. Cachexia. Encourage oral intake. 5. Metabolic acidosis. Suspect secondary to #2. Monitor for now. 6. History of anxiety. Continue with anxiolytics as needed. Disposition plan: Monitor for clinical improvement of pancreatitis. Continue IV hydration. Follow-up with surgeon recommendations for possible surgical intervention. Continue with analgesics. Discussed plan of care with Dr. Rios Problems: Subjective 24 Hr Interval Summary Free Text/Dictation reports having rib pain and abdominal pain. Exam/Review of Systems Vital Signs Vitals Vital Signs Date Time Temp Pulse Resp B/P Pulse Ox O2 Delivery O2 Flow Rate FiO2 01/12/17 07:49 98.6 85 20 106/61 100 01/11/17 10:48 Room Air Intake and Output 01/11/17 01/11/17 01/12/17 14:59 22:59 06:59 Intake Total 375 ml 1486 ml Balance 375 ml 1486 ml Exam Constitutional: alert, oriented Psych: anxiety Head: normocephalic Eyes: nl conjunctiva Neck: non-tender, supple Respiratory: clear to auscultation, normal air movement Cardiovascular: regular rate and rhythm Gastrointestinal: soft, tender Musculoskeletal: nl extremities to inspection, other Extremities: calf tenderness, normal pulses Neurological: GLOVE WRAPPER II-XII intact, nl mental status, nl speech Results Result Diagram: 01/12/1752201/12/17522 Results 24 hrs Laboratory Tests Test 01/11/17 12:20 01/12/17 05:23 Magnesium Level 1.7 1.4 L White Blood Count 7.6 Red Blood Count 3.09 #L Hemoglobin 10.3 #L Hematocrit 30.9 L Mean Corpuscular Volume 100.0 Mean Corpuscular Hemoglobin 33.3 H Mean Corpuscular Hemoglobin Concent 33.3 Red Cell Distribution Width 14.5 Platelet Count 373 Mean Platelet Volume 9.9 Neutrophils % 66.5 Lymphocytes % 20.8 Monocytes % 9.7 Eosinophils % 1.1 Basophils % 0.7 Nucleated Red Blood Cells % 0.0 Neutrophils # 5.0 Lymphocytes # 1.6 Monocytes # 0.7 Eosinophils # 0.1 Basophils # 0.1 Nucleated Red Blood Cells # 0.0 Prothrombin Time 13.6 Prothrombin Time Ratio 1.1 INR International Normalized Ratio 1.04 Activated Partial Thromboplast Time 29.0 Sodium Level 136 Potassium Level 4.2 Chloride Level 99 # Carbon Dioxide Level 25 Anion Gap 16 Blood Urea Nitrogen 7 Creatinine 0.48 Glucose Level 64 #L Hemoglobin A1c 5.2 Calcium Level 8.7 Phosphorus Level 3.8 Total Bilirubin 0.1 L Direct Bilirubin 0.00 Indirect Bilirubin 0.1 Aspartate Amino Transf (AST/SGOT) 40 Alanine Aminotransferase (ALT/SGPT) 46 Alkaline Phosphatase 89 Ammonia 20 Total Protein 5.8 #L Albumin 3.0 #L Globulin 2.80 Albumin/Globulin Ratio 1.07 Prealbumin 15.9 L Triglycerides Level 42 Cholesterol Level 123 LDL Cholesterol, Calculated 47 HDL Cholesterol 68 Cholesterol/HDL Ratio 1.8 Amylase Level 266 H Lipase 2896 H Vitamin D 1,25-Dihydroxy 30.3 Thyroid Stimulating Hormone (TSH) 1.870 Free Thyroxine 1.34 Medications Medications Current Medications Ondansetron HCl (Zofran Inj) 4 mg Q6H PRN IV NAUSEA AND/OR VOMITING Last administered on 01/12/17 02:08; Admin Dose 4 MG; Start 01/11/17 at 10:00 Acetaminophen/ Hydrocodone Bitart ([place] (5/325)) 1 tab Q6H PRN PO PAIN LEVEL 4 -6 Last administered on 01/12/17 05:02; Admin Dose 1 TAB; Start 01/11/17 at 10:00 Famotidine (Pepcid Iv) 20 mg Q12 IV Last administered on 01/12/17 09:10; Admin Dose 20 MG; Start 01/11/17 at 21:00 Lorazepam 1 mg 1 mg Q2H PRN IV Anxiety Last administered on 01/12/17 05:42; Admin Dose 1 MG; Start 01/11/17 at 10:00 Sodium Chloride (NS) 1,000 ml @ 125 mls/hr Q8H IV Last administered on 01:53; Admin Dose 125 MLS/HR; Start 01/11/17 at 10:00 Chlordiazepoxide (Librium) 25 mg TID PO Last administered on 01/12/17 09:10; Admin Dose 25 MG; Start 01/11/17 at 13:00 Thiamine HCl 100 mg 100 mg DAILY PO Last administered on 01/12/17 09:10; Admin Dose 100 MG; Start 01/12/17 at 09:00 Multivitamins/ Thiamine HCl/ Sodium Chloride (Mvi Adult/ Vitamin B1/NS) 1,011 ml @ 125 mls/hr DAILY@09 IVPB Last administered on 01/12/17 10:35; Admin Dose 125 MLS/HR; Start 01/11/17 at 13:00 Folic Acid 1 mg 1 mg DAILY PO Last administered on 01/12/17 09:10; Admin Dose 1 MG; Start 01/11/17 at 13:00 Magnesium Sulfate/ Dextrose (Magnesium Sulfate/D5W) 106 ml @ 35.333 mls/ hr ONCE ONCE IVPB ; Start 01/12/17 at 12:00; Stop 01/12/17 at 14:59 Ketorolac Tromethamine (Toradol) 30 mg Q6H PRN IV PAIN; Start 01/12/17 at 11: 00; Stop 01/15/17 at 10:59 Hydromorphone HCl (Dilaudid) 1 mg Q3H PRN IV pain; Start 01/12/17 at 11:00 FLACO WHITE Jan 12, 2017 11:18
[2017-01-12] MEDS ORDERED: MAGNESIUM SULFATE 3 GM in DEXTROSE 5% 100 ML IVPB ONE (12:00)
[2017-01-12] MEDS: KETOROLAC 30 MG INJ IV PRN ×2 (13:24→20:42)
[2017-01-12] MEDS: HYDROmorphONE 1 MG/ML SYG IV PRN ×3 (15:24→23:05)
[2017-01-12 15:42] VITALS: BP 101/61; RESP 16
--- NOTE | 2017-01-12 18:40 | PN ---
Date/Time of Note Date/Time of Note DATE: 01/12/17 TIME: 18:39 Assessment/Plan Lines/Catheters IV [facility] Type (from [facility]): Peripheral IV Assessment/Plan Chief Complaint/Hosp Course IMPRESSION: Rib fractures. RECOMMENDATIONS: Will plan for surgery. Will continue pulmonary toilet. Followup chest x-ray. Problems: Subjective 24 Hr Interval Summary Constitutional: improved Exam/Review of Systems Vital Signs Vitals Vital Signs Date Time Temp Pulse Resp B/P Pulse Ox O2 Delivery O2 Flow Rate FiO2 01/12/17 15:42 99.0 81 16 101/61 96 01/11/17 10:48 Room Air Intake and Output 01/11/17 01/11/17 01/12/17 15:00 23:00 07:00 Intake Total 375 ml 1486 ml Balance 375 ml 1486 ml Exam Eyes: EOMI, nl conjunctiva, nl lids, nl sclera ENMT: mucosa pink and moist, nl external ears & nose, nl lips & teeth, nl nasal mucosa & septum Neck: non-tender, supple Respiratory: clear to auscultation, normal air movement Cardiovascular: nl pulses, regular rate and rhythm Results Result Diagram: 01/12/17 0523 01/12/17 0523 ARASH DEY MD Jan 12, 2017 18:40
[2017-01-12 20:00] VITALS: BP 96/53; RESP 20
[2017-01-13] MEDS: SOD CHLORIDE 0.9% 1,000 ML IV SCH ×4 (01:47→18:00)
[2017-01-13] MEDS: HYDROmorphONE 1 MG/ML SYG IV PRN ×5 (01:50→23:12)
[2017-01-13 02:00] VITALS: BP 93/55; RESP 20
[2017-01-13] MEDS: KETOROLAC 30 MG INJ IV PRN ×2 (04:35→20:18)
[2017-01-13] MEDS: LORAZEPAM 2 MG INJ IV PRN ×3 (05:37→11:53)
[2017-01-13 06:16] LABS: BASOPHIL # 0.1 10^3/ul (0.0-0.1); BASOPHILS % 1.1 % (0.0-2.0); EOSINOPHILS # 0.1 10^3/ul (0.0-0.5); EOSINOPHILS % 2.1 % (0.0-7.0); HEMATOCRIT 30.3 % (37.0-47.0); LYMPHOCYTES # 1.7 10^3/ul (0.8-2.9); LYMPHOCYTES % 25.7 % (15.0-51.0); MEAN CORPUSCULAR HEMOGLOBIN 31.9 pg (29.0-33.0); MEAN CORPUSCULAR VOLUME 96.8 fl (82.0-101.0); MEAN PLATELET VOLUME 10.7 fl (7.4-10.4); MONOCYTE # 0.7 10^3/ul (0.3-0.9); MONOCYTES % 11.2 % (0.0-11.0); NEUTROPHIL # 3.8 10^3/ul (1.6-7.5); NEUTROPHILS % 57.6 % (39.0-77.0); PLATELET COUNT 305 10^3/UL (140-415); RED BLOOD COUNT 3.13 10^6/ul (4.20-5.40); RED CELL DISTRIBUTION WIDTH 14.2 % (11.5-14.5); WHITE BLOOD COUNT 6.6 10^3/ul (4.8-10.8)
[2017-01-13 06:43] LABS: CALCIUM 8.2 mg/dl (8.4-10.2); CREATININE 0.41 mg/dl (0.44-1.00); MAGNESIUM 1.5 mg/dl (1.7-2.5); POTASSIUM 3.4 mmol/L (3.5-5.1)
[2017-01-13 06:56] LABS: POSITIVE DIFF @See below
[2017-01-13 07:48] VITALS: BP 96/65; RESP 16
[2017-01-13] MEDS: FOLIC ACID 1 MG TAB PO SCH (08:44)
[2017-01-13] MEDS: CHLORDIAZEPOXIDE 25 MG CAP PO SCH (08:44)
[2017-01-13] MEDS: THIAMINE 100 MG TAB PO SCH (08:44)
[2017-01-13] MEDS: FAMOTIDINE 20 MG INJ IV SCH ×2 (08:44→20:34)
[2017-01-13] MEDS: MULTIVITAMINS 10 ML, THIAMINE 100 MG in SOD CHLORIDE 0.9% 1,000 ML IVPB SCH (08:52)
[2017-01-13] MEDS ORDERED: POTASSIUM CHLORIDE 30 MEQ in DEXTROSE 5% 250 ML IVPB ONE (12:00)
[2017-01-13] MEDS ORDERED: MAGNESIUM SULFATE 3 GM in DEXTROSE 5% 100 ML IVPB ONE (12:00)
[2017-01-13] MEDS: CHLORDIAZEPOXIDE 5 MG CAP PO SCH ×2 (13:40→20:34)
[2017-01-13] MEDS: ALBUTEROL/IPRATROPIUM (NEB) 3 ML AMP HHN SCH ×2 (13:46→19:43)
--- NOTE | 2017-01-13 14:07 | PN ---
Date/Time of Note Date/Time of Note DATE: 01/13/17 TIME: 14:02 Assessment/Plan VTE Prophylaxis VTE Prophylaxis Intervention: SCD's Lines/Catheters IV Catheter Type (from Nrs): Peripheral IV Assessment/Plan Chief Complaint/Hosp Course 1. Acute anterior right 10th and 11th rib fractures secondary to ground-level fall. The patient will be provided with adequate pain control. Thoracic surgery on the case. Continue pulmonary toilet. 2. Acute pancreatitis. Etiology could be alcohol induced. Improving. Currently n.p.o. 3. Alcoholism. The patient will be continued on as needed benzodiazepines for any alcohol withdrawal delirium. The patient on tapering dose of Librium. 4. Cachexia. Etiology unclear. Evidence of protein calorie malnutrition, moderate. Will provide dietary supplements when the patient is able to tolerate oral intake. 5. Metabolic alkalosis. Resolved. 6. Anxiety disorder. The patient will be maintained on anxiolytics. 7. Fluids, electrolytes, and nutrition. Continue IV fluids. N.p.o. except for medications. 8. DVT prophylaxis. Bilateral sequential compression devices. 9. Plan. Continue pain control. Trend pancreatic enzymes. Await further recommendations from thoracic surgery. Case discussed with . Problems: Subjective 24 Hr Interval Summary Free Text/Dictation Continues to have rib cage and abdominal pain. Exam/Review of Systems Vital Signs Vitals Vital Signs Date Time Temp Pulse Resp B/P Pulse Ox O2 Delivery O2 Flow Rate FiO2 01/13/17 13:46 68 16 99 21 01/13/17 07:48 99.1 96/65 01/11/17 10:48 Room Air Intake and Output 01/12/17 01/12/17 01/13/17 15:00 23:00 07:00 Intake Total 400 ml 1117 ml 250 ml Output Total 1700 ml 1300 ml Balance 400 ml -583 ml -1050 ml Exam General: Thin, frail looking, 56 year-old female lying in bed in no apparent distress. HEENT: Normocephalic, atraumatic. Eyes: Anicteric sclerae, conjunctivae clear. ENT: Nasal septum midline, oral mucosa moist. Neck supple, no JVD noticed. Respiratory: Bilaterally clear breath sounds. No use of accessory muscles of respiration. No adventitious breath sounds. Cardiovascular: S1, S2 heard. No murmurs or gallops. Abdomen: Soft, nontender, and nondistended. Bowel sounds positive in all 4 quadrants. Genitourinary: Deferred. Extremities: No cyanosis, no clubbing, no edema. Peripheral pulses palpable. Neurologic: Cranial nerves II through XII grossly intact. The patient is awake, alert, and oriented. Skin: Normal skin turgor. No skin rashes. Results Result Diagram: 01/13/17 0536 01/13/17 0535 Results 24 hrs Laboratory Tests Test 01/13/17 05:35 01/13/17 05:36 Sodium Level 139 Potassium Level 3.4 L Chloride Level 98 Carbon Dioxide Level 24 Anion Gap 20 H Blood Urea Nitrogen 2 L Creatinine 0.41 L Glucose Level 67 L Calcium Level 8.2 L Magnesium Level 1.5 L Lipase 1006 H White Blood Count 6.6 Red Blood Count 3.13 L Hemoglobin 10.0 L Hematocrit 30.3 L Mean Corpuscular Volume 96.8 Mean Corpuscular Hemoglobin 31.9 Mean Corpuscular Hemoglobin Concent 33.0 Red Cell Distribution Width 14.2 Platelet Count 305 Mean Platelet Volume 10.7 H Neutrophils % 57.6 Lymphocytes % 25.7 Monocytes % 11.2 H Eosinophils % 2.1 Basophils % 1.1 Nucleated Red Blood Cells % 0.0 Neutrophils # 3.8 Lymphocytes # 1.7 Monocytes # 0.7 Eosinophils # 0.1 Basophils # 0.1 Nucleated Red Blood Cells # 0.0 Medications Medications Current Medications Ondansetron HCl (Zofran Inj) 4 mg Q6H PRN IV NAUSEA AND/OR VOMITING Last administered on 01/12/17 02:08; Admin Dose 4 MG; Start 01/11/17 at 10:00 Acetaminophen/ Hydrocodone Bitart ([place] (5/325)) 1 tab Q6H PRN PO PAIN LEVEL 4 -6 Last administered on 01/12/17 05:02; Admin Dose 1 TAB; Start 01/11/17 at 10:00 Famotidine (Pepcid Iv) 20 mg Q12 IV Last administered on 01/13/17 08:44; Admin Dose 20 MG; Start 01/11/17 at 21:00 Lorazepam 1 mg 1 mg Q2H PRN IV Anxiety Last administered on 01/13/17 11:53; Admin Dose 1 MG; Start 01/11/17 at 10:00 Sodium Chloride (NS) 1,000 ml @ 125 mls/hr Q8H IV Last administered on 04:36; Admin Dose 125 MLS/HR; Start 01/11/17 at 10:00 Thiamine HCl 100 mg 100 mg DAILY PO Last administered on 01/13/17 08:44; Admin Dose 100 MG; Start 01/12/17 at 09:00 Multivitamins/ Thiamine HCl/ Sodium Chloride (Mvi Adult/ Vitamin B1/NS) 1,011 ml @ 125 mls/hr DAILY@09 IVPB Last administered on 01/13/17 08:52; Admin Dose 125 MLS/HR; Start 01/11/17 at 13:00 Folic Acid (Folic Acid) 1 mg DAILY PO Last administered on 01/13/17 08:44; Admin Dose 1 MG; Start 01/11/17 at 13:00 Ketorolac Tromethamine (Toradol) 30 mg Q6H PRN IV PAIN Last administered on 04:35; Admin Dose 30 MG; Start 01/12/17 at 11:00; Stop 01/15/17 at 10: 59 Hydromorphone HCl 1 mg 1 mg Q3H PRN IV pain Last administered on 01/13/17 13: 11; Admin Dose 1 MG; Start 01/12/17 at 11:00 Magnesium Sulfate 3 gm/Dextrose 106 ml @ 35.333 mls/ hr ONCE ONCE IVPB Last administered on 01/13/17 13:11; Admin Dose 35.333 MLS/HR; Start 01/13/17 at 12:00; Stop 01/13/17 at 14:59 Potassium Chloride/Dextrose (KCl/D5W) 265 ml @ 88.333 mls/ hr ONCE ONCE IVPB ; Start 01/13/17 at 12:00; Stop 01/13/17 at 14:59 Chlordiazepoxide (Librium) 10 mg TID PO Last administered on 01/13/17 13:40; Admin Dose 10 MG; Start 01/13/17 at 13:00 EROS HOPE NP Jan 13, 2017 14:07
[2017-01-13 14:10] VITALS: BP 96/51; RESP 16
--- NOTE | 2017-01-13 15:04 | PN ---
Date/Time of Note Date/Time of Note DATE: 01/13/17 TIME: 15:03 Assessment/Plan Lines/Catheters IV Catheter Type (from Nrs): Peripheral IV Assessment/Plan Chief Complaint/Hosp Course IMPRESSION: Rib fractures. RECOMMENDATIONS: Will plan for surgery. Will continue pulmonary toilet. Followup chest x-ray. Problems: Subjective 24 Hr Interval Summary Constitutional: improved Pain Control: mild Exam/Review of Systems Vital Signs Vitals Vital Signs Date Time Temp Pulse Resp B/P Pulse Ox O2 Delivery O2 Flow Rate FiO2 01/13/17 14:10 99.0 16 96/51 98 01/13/17 13:46 68 21 01/11/17 10:48 Room Air Intake and Output 01/12/17 01/12/17 01/13/17 15:00 23:00 07:00 Intake Total 400 ml 1117 ml 250 ml Output Total 1700 ml 1300 ml Balance 400 ml -583 ml -1050 ml Exam ENMT: mucosa pink and moist, nl external ears & nose, nl lips & teeth, nl nasal mucosa & septum Neck: non-tender, supple Respiratory: clear to auscultation, normal air movement Cardiovascular: nl pulses, regular rate and rhythm Gastrointestinal: nl liver, spleen, non-tender, soft Results Result Diagram: 01/13/17 0536 01/13/17 0535 ARASH DEY MD Jan 13, 2017 15:04
[2017-01-13 19:53] VITALS: BP 90/58; RESP 20
[2017-01-13] MEDS: BISACODYL (EC) 5 MG TAB PO PRN (20:34)
[2017-01-13] MEDS: DOCUSATE SODIUM 100 MG CAP PO SCH (20:34)
[2017-01-13 23:09] VITALS: BP 114/58; PULSE 88
[2017-01-14] MEDS: KETOROLAC 30 MG INJ IV PRN (01:38)
[2017-01-14 02:00] VITALS: BP 95/51; RESP 20
[2017-01-14] MEDS: SOD CHLORIDE 0.9% 1,000 ML IV SCH ×4 (02:00→18:00)
[2017-01-14] MEDS: LORAZEPAM 2 MG INJ IV PRN ×3 (02:34→19:53)
[2017-01-14] MEDS: HYDROmorphONE 1 MG/ML SYG IV PRN ×5 (04:47→21:09)
[2017-01-14 06:34] LABS: ANION GAP 13 (8-16); CALCIUM 8.3 mg/dl (8.4-10.2); CARBON DIOXIDE 30 mmol/L (21-31); CHLORIDE 100 mmol/L (97-110); CREATININE 0.46 mg/dl (0.44-1.00); GLUCOSE 100 mg/dl (70-220); POTASSIUM 3.3 mmol/L (3.5-5.1); SODIUM 140 mmol/L (135-144)
[2017-01-14 06:59] LABS: BLOOD UREA NITROGEN < 2 mg/dl (7-20)
[2017-01-14 07:00] LABS: AMYLASE 98 U/L (11-123)
[2017-01-14] MEDS: ALBUTEROL/IPRATROPIUM (NEB) 3 ML AMP HHN SCH ×3 (07:39→19:59)
[2017-01-14 07:51] VITALS: BP 98/62; RESP 20
[2017-01-14] MEDS: FOLIC ACID 1 MG TAB PO SCH (08:43)
[2017-01-14] MEDS: DOCUSATE SODIUM 100 MG CAP PO SCH ×2 (08:43→20:10)
[2017-01-14] MEDS: MULTIVITAMINS 10 ML, THIAMINE 100 MG in SOD CHLORIDE 0.9% 1,000 ML IVPB SCH (08:43)
[2017-01-14] MEDS: FAMOTIDINE 20 MG INJ IV SCH ×2 (08:43→20:10)
[2017-01-14] MEDS: CHLORDIAZEPOXIDE 5 MG CAP PO SCH ×3 (08:43→20:10)
[2017-01-14] MEDS: THIAMINE 100 MG TAB PO SCH (08:44)
[2017-01-14] MEDS: LIDOCAINE 5% PATCH TD SCH (10:00)
[2017-01-14] MEDS ORDERED: POTASSIUM CHLORIDE 30 MEQ in DEXTROSE 5% 250 ML IVPB ONE (11:00)
--- NOTE | 2017-01-14 11:06 | PN ---
Date/Time of Note Date/Time of Note DATE: 01/14/17 TIME: 11:03 Assessment/Plan VTE Prophylaxis VTE Prophylaxis Intervention: SCD's Lines/Catheters IV Catheter Type (from Nrs): Peripheral IV Assessment/Plan Chief Complaint/Hosp Course 1. Acute anterior right 10th and 11th rib fractures secondary to ground-level fall. The patient will be provided with adequate pain control. Thoracic surgery on the case. Continue pulmonary toilet. 2. Acute pancreatitis. Etiology could be alcohol induced. Improving. Will start the patient on clears. 3. Alcoholism. The patient will be continued on as needed benzodiazepines for any alcohol withdrawal delirium. The patient on tapering dose of Librium. 4. Cachexia. Etiology unclear. Evidence of protein calorie malnutrition, moderate. Will provide dietary supplements. Dietary consult. 5. Metabolic alkalosis. Resolved. 6. Anxiety disorder. The patient will be maintained on anxiolytics. 7. Fluids, electrolytes, and nutrition. Continue IV fluids. Start clear liquids. 8. DVT prophylaxis. Bilateral sequential compression devices. 9. Plan. Continue pain control. Trend pancreatic enzymes. Await further recommendations from thoracic surgery. Start clears. Replete potassium. Case discussed with . Problems: Subjective 24 Hr Interval Summary Free Text/Dictation Complains of rib cage pain. Exam/Review of Systems Vital Signs Vitals Vital Signs Date Time Temp Pulse Resp B/P Pulse Ox O2 Delivery O2 Flow Rate FiO2 01/14/17 07:51 98.7 72 20 98/62 99 01/14/17 07:42 21 01/11/17 10:48 Room Air Intake and Output 01/13/17 01/13/17 01/14/17 15:00 23:00 07:00 Intake Total 300 ml 581 ml 1286 ml Output Total 650 ml 800 ml Balance 300 ml -69 ml 486 ml Exam General: Thin, frail looking, 56 year-old female lying in bed in no apparent distress. HEENT: Normocephalic, atraumatic. Eyes: Anicteric sclerae, conjunctivae clear. ENT: Nasal septum midline, oral mucosa moist. Neck supple, no JVD noticed. Respiratory: Bilaterally clear breath sounds. No use of accessory muscles of respiration. No adventitious breath sounds. Cardiovascular: S1, S2 heard. No murmurs or gallops. Abdomen: Soft, nontender, and nondistended. Bowel sounds positive in all 4 quadrants. Genitourinary: Deferred. Extremities: No cyanosis, no clubbing, no edema. Peripheral pulses palpable. Neurologic: Cranial nerves II through XII grossly intact. The patient is awake, alert, and oriented. Skin: Normal skin turgor. No skin rashes. Results Result Diagram: 01/13/17 0536 01/14/17 0530 Results 24 hrs Laboratory Tests Test 01/14/17 05:30 Sodium Level 140 Potassium Level 3.3 L Chloride Level 100 Carbon Dioxide Level 30 Anion Gap 13 # Blood Urea Nitrogen < 2 L Creatinine 0.46 Glucose Level 100 Calcium Level 8.3 L Amylase Level 98 Lipase 961 H Medications Medications Current Medications Ondansetron HCl (Zofran Inj) 4 mg Q6H PRN IV NAUSEA AND/OR VOMITING Last administered on 01/12/17 02:08; Admin Dose 4 MG; Start 01/11/17 at 10:00 Acetaminophen/ Hydrocodone Bitart ([place] (5/325)) 1 tab Q6H PRN PO PAIN LEVEL 4 -6 Last administered on 01/12/17 05:02; Admin Dose 1 TAB; Start 01/11/17 at 10:00 Famotidine (Pepcid Iv) 20 mg Q12 IV Last administered on 01/14/17 08:43; Admin Dose 20 MG; Start 01/11/17 at 21:00 Lorazepam 1 mg 1 mg Q2H PRN IV Anxiety Last administered on 01/14/17 10:00; Admin Dose 1 MG; Start 01/11/17 at 10:00 Sodium Chloride (NS) 1,000 ml @ 125 mls/hr Q8H IV Last administered on 05:31; Admin Dose 125 MLS/HR; Start 01/11/17 at 10:00 Thiamine HCl 100 mg 100 mg DAILY PO Last administered on 01/14/17 08:44; Admin Dose 100 MG; Start 01/12/17 at 09:00 Multivitamins/ Thiamine HCl/ Sodium Chloride (Mvi Adult/ Vitamin B1/NS) 1,011 ml @ 125 mls/hr DAILY@09 IVPB Last administered on 01/14/17 08:43; Admin Dose 125 MLS/HR; Start 01/11/17 at 13:00 Folic Acid (Folic Acid) 1 mg DAILY PO Last administered on 01/14/17 08:43; Admin Dose 1 MG; Start 01/11/17 at 13:00 Ketorolac Tromethamine (Toradol) 30 mg Q6H PRN IV PAIN Last administered on 01:38; Admin Dose 30 MG; Start 01/12/17 at 11:00; Stop 01/15/17 at 10: 59 Hydromorphone HCl (Dilaudid) 1 mg Q3H PRN IV pain Last administered on 08:44; Admin Dose 1 MG; Start 01/12/17 at 11:00 Chlordiazepoxide (Librium) 10 mg TID PO Last administered on 01/14/17 08:43; Admin Dose 10 MG; Start 01/13/17 at 13:00 Docusate Sodium (Colace) 100 mg BID PO Last administered on 01/14/17 08:43; Admin Dose 100 MG; Start 01/13/17 at 21:00 Bisacodyl (Dulcolax) 10 mg DAILY PRN PO CONSTIPATION Last administered on 01/13 20:34; Admin Dose 10 MG; Start 01/13/17 at 14:30 Lidocaine 1 patch 1 patch DAILY TD Last administered on 01/14/17 10:00; Admin Dose 1 PATCH; Start 01/14/17 at 09:30 Potassium Chloride/Dextrose (KCl/D5W) 265 ml @ 88.333 mls/ hr ONCE ONCE IVPB ; Start 01/14/17 at 11:00; Stop 01/14/17 at 13:59 EROS HOPE NP Jan 14, 2017 11:06
[2017-01-14] MEDS: HYDROCODONE/APAP (5/325) TAB PO PRN ×2 (11:21→18:59)
[2017-01-14] MEDS: BISACODYL (EC) 5 MG TAB PO PRN (12:40)
[2017-01-14 14:06] VITALS: BP 96/50; RESP 20
[2017-01-14] MEDS ORDERED: NA PHOSPHATE/BIPHOS 133 ML ENEMA PR PRN (15:00)
[2017-01-14] MEDS: MAGNESIUM HYDROXIDE 30ML CUP PO PRN (15:28)
[2017-01-14] MEDS: ONDANSETRON 4 MG INJ IV PRN (15:28)
--- NOTE | 2017-01-14 17:06 | PN ---
Date/Time of Note Date/Time of Note DATE: 01/14/17 TIME: 17:05 Assessment/Plan Lines/Catheters IV Catheter Type (from Nrs): Peripheral IV Renae in Place (from Nrsg): No Assessment/Plan Chief Complaint/Hosp Course IMPRESSION: Rib fractures. RECOMMENDATIONS: Will plan for surgery. Will continue pulmonary toilet. Followup chest x-ray. Problems: Subjective 24 Hr Interval Summary Constitutional: improved Pain Control: mild Exam/Review of Systems Vital Signs Vitals Vital Signs Date Time Temp Pulse Resp B/P Pulse Ox O2 Delivery O2 Flow Rate FiO2 01/14/17 14:06 98.5 77 20 96/50 99 01/14/17 07:42 21 01/11/17 10:48 Room Air Intake and Output 01/13/17 01/13/17 01/14/17 15:00 23:00 07:00 Intake Total 300 ml 581 ml 1286 ml Output Total 650 ml 800 ml Balance 300 ml -69 ml 486 ml Exam Neck: non-tender, supple Respiratory: clear to auscultation, normal air movement Cardiovascular: nl pulses, regular rate and rhythm Gastrointestinal: nl liver, spleen, non-tender, soft Results Result Diagram: 01/13/17 0536 01/14/17 0530 ARASH DEY MD Jan 14, 2017 17:06
[2017-01-14 20:05] VITALS: BP 96/55; RESP 20
[2017-01-14] MEDS: POLYETHYLENE GLYCOL 17 GM PACKET PO SCH (20:10)
[2017-01-15] MEDS: SOD CHLORIDE 0.9% 1,000 ML IV SCH ×2 (01:07→10:00)
[2017-01-15] MEDS: HYDROmorphONE 1 MG/ML SYG IV PRN ×5 (01:17→20:50)
[2017-01-15 01:34] VITALS: BP 103/58; RESP 20
[2017-01-15] MEDS: ONDANSETRON 4 MG INJ IV PRN (04:04)
[2017-01-15 06:28] LABS: AMYLASE 40 U/L (11-123)
[2017-01-15 06:29] LABS: ANION GAP 8 (8-16); BLOOD UREA NITROGEN < 2 mg/dl (7-20); CALCIUM 8.2 mg/dl (8.4-10.2); CARBON DIOXIDE 29 mmol/L (21-31); CHLORIDE 108 mmol/L (97-110); CREATININE 0.45 mg/dl (0.44-1.00); GLUCOSE 101 mg/dl (70-220); POTASSIUM 3.4 mmol/L (3.5-5.1); SODIUM 142 mmol/L (135-144)
[2017-01-15] MEDS: ALBUTEROL/IPRATROPIUM (NEB) 3 ML AMP HHN SCH ×3 (07:22→19:37)
[2017-01-15 08:04] VITALS: BP 100/61; RESP 16
[2017-01-15] MEDS: FAMOTIDINE 20 MG INJ IV SCH (08:44)
[2017-01-15] MEDS: DOCUSATE SODIUM 100 MG CAP PO SCH ×2 (08:45→20:49)
[2017-01-15] MEDS: CHLORDIAZEPOXIDE 5 MG CAP PO SCH ×3 (08:46→20:49)
[2017-01-15] MEDS: FOLIC ACID 1 MG TAB PO SCH (08:46)
[2017-01-15] MEDS: POLYETHYLENE GLYCOL 17 GM PACKET PO SCH ×2 (08:47→20:49)
[2017-01-15] MEDS: THIAMINE 100 MG TAB PO SCH (08:47)
[2017-01-15] MEDS: LIDOCAINE 5% PATCH TD SCH (08:50)
[2017-01-15] MEDS: MULTIVITAMINS 10 ML, THIAMINE 100 MG in SOD CHLORIDE 0.9% 1,000 ML IVPB SCH (09:55)
[2017-01-15] MEDS: LORAZEPAM 2 MG INJ IV PRN (11:18)
--- NOTE | 2017-01-15 11:52 | PN ---
Date/Time of Note Date/Time of Note DATE: 01/15/17 TIME: 11:49 Assessment/Plan VTE Prophylaxis VTE Prophylaxis Intervention: SCD's Lines/Catheters IV [facility] Type (from [facility]): Peripheral IV Urinary Cath still in place: No Assessment/Plan Chief Complaint/Hosp Course 1. Acute anterior right 10th and 11th rib fractures secondary to ground-level fall. The patient will be provided with adequate pain control. Thoracic surgery on the case. Continue pulmonary toilet. 2. Acute pancreatitis. Etiology could be alcohol induced. Improving. Will advance the diet. 3. Alcoholism. The patient will be continued on as needed benzodiazepines for any alcohol withdrawal delirium. The patient on tapering dose of Librium. 4. Cachexia. Etiology unclear. Evidence of protein calorie malnutrition, moderate. Will provide dietary supplements. Dietary consult. 5. Metabolic alkalosis. Resolved. 6. Anxiety disorder. The patient will be maintained on anxiolytics. 7. Fluids, electrolytes, and nutrition. DC IV fluids. Advance diet. 8. DVT prophylaxis. Bilateral sequential compression devices. 9. Plan. Continue pain control. Trend pancreatic enzymes. Advance diet. Replete potassium and magnesium. Advance diet. PT evaluation. Case discussed with . Problems: Subjective 24 Hr Interval Summary Free Text/Dictation Continues to have right rib cage pain. Exam/Review of Systems Vital Signs Vitals Vital Signs Date Time Temp Pulse Resp B/P Pulse Ox O2 Delivery O2 Flow Rate FiO2 01/15/17 08:04 97.8 84 16 100/61 98 01/15/17 07:23 21 01/11/17 10:48 Room Air Intake and Output 01/14/17 01/14/17 01/15/17 15:00 23:00 07:00 Intake Total 780 ml 265 ml 2100 ml Output Total 600 ml Balance 780 ml 265 ml 1500 ml Exam General: Thin, frail looking, 56 year-old female lying in bed in no apparent distress. HEENT: Normocephalic, atraumatic. Eyes: Anicteric sclerae, conjunctivae clear. ENT: Nasal septum midline, oral mucosa moist. Neck supple, no JVD noticed. Respiratory: Bilaterally clear breath sounds. No use of accessory muscles of respiration. No adventitious breath sounds. Cardiovascular: S1, S2 heard. No murmurs or gallops. Abdomen: Soft, nontender, and nondistended. Bowel sounds positive in all 4 quadrants. Genitourinary: Deferred. Extremities: No cyanosis, no clubbing, no edema. Peripheral pulses palpable. Neurologic: Cranial nerves II through XII grossly intact. The patient is awake, alert, and oriented. Skin: Normal skin turgor. No skin rashes. Results Result Diagram: 01/13/17 0536 01/15/17 0527 Results 24 hrs Laboratory Tests Test 01/15/17 05:27 Sodium Level 142 Potassium Level 3.4 L Chloride Level 108 Carbon Dioxide Level 29 Anion Gap 8 Blood Urea Nitrogen < 2 L Creatinine 0.45 Glucose Level 101 Calcium Level 8.2 L Magnesium Level 1.4 L Amylase Level 40 Lipase 427 H Medications Medications Current Medications Ondansetron HCl (Zofran Inj) 4 mg Q6H PRN IV NAUSEA AND/OR VOMITING Last administered on 01/15/17 04:04; Admin Dose 4 MG; Start 01/11/17 at 10:00 Acetaminophen/ Hydrocodone Bitart ([place] (5/325)) 1 tab Q6H PRN PO PAIN LEVEL 4 -6 Last administered on 01/14/17 18:59; Admin Dose 1 TAB; Start 01/11/17 at 10:00 Famotidine (Pepcid Iv) 20 mg Q12 IV Last administered on 01/15/17 08:44; Admin Dose 20 MG; Start 01/11/17 at 21:00 Lorazepam (Ativan) 1 mg Q2H PRN IV Anxiety Last administered on 01/15/17 11: 18; Admin Dose 1 MG; Start 01/11/17 at 10:00 Thiamine HCl (Vitamin B1) 100 mg DAILY PO Last administered on 01/15/17 08:47 ; Admin Dose 100 MG; Start 01/12/17 at 09:00 Folic Acid (Folic Acid) 1 mg DAILY PO Last administered on 01/15/17 08:46; Admin Dose 1 MG; Start 01/11/17 at 13:00 Hydromorphone HCl (Dilaudid) 1 mg Q3H PRN IV pain Last administered on 07:00; Admin Dose 1 MG; Start 01/12/17 at 11:00 Chlordiazepoxide (Librium) 10 mg TID PO Last administered on 01/15/17 08:46; Admin Dose 10 MG; Start 01/13/17 at 13:00 Docusate Sodium (Colace) 100 mg BID PO Last administered on 01/14/17 20:10; Admin Dose 100 MG; Start 01/13/17 at 21:00 Bisacodyl (Dulcolax) 10 mg DAILY PRN PO CONSTIPATION Last administered on 01/14 12:40; Admin Dose 10 MG; Start 01/13/17 at 14:30 Lidocaine (Lidoderm) 1 patch DAILY TD Last administered on 01/15/17 08:50; Admin Dose 1 PATCH; Start 01/14/17 at 09:30 Magnesium Hydroxide (Milk Of Mag) 30 ml DAILY PRN PO CONSTIPATION Last administered on 01/14/17 15:28; Admin Dose 30 ML; Start 01/14/17 at 15:00 Polyethylene Glycol (Miralax) 17 gm BID PO Last administered on 01/14/17 20: 10; Admin Dose 17 GM; Start 01/14/17 at 21:00 Sodium Biphosphate/ Sodium Phosphate 133 ml 133 ml DAILY PRN [place] CONSTIPATION; Start 01/14/17 at 15:00 Magnesium Sulfate/ Dextrose (Magnesium Sulfate/D5W) 106 ml @ 35.333 mls/ hr ONCE ONCE IVPB ; Start 01/15/17 at 12:00; Stop 01/15/17 at 14:59; Status UNV Potassium Chloride (Klor-Con 10) 30 meq ONCE ONCE PO ; Start 01/15/17 at 12:00 ; Stop 01/15/17 at 12:01; Status UNV EROS HOPE NP Jan 15, 2017 11:52
[2017-01-15] MEDS ORDERED: POTASSIUM CHLORIDE (SR) 10 MEQ TAB PO ONE (12:00)
[2017-01-15] MEDS ORDERED: MAGNESIUM SULFATE 3 GM in DEXTROSE 5% 100 ML IVPB ONE (12:30)
--- NOTE | 2017-01-15 13:51 | PN ---
Date/Time of Note Date/Time of Note DATE: 01/15/17 TIME: 13:50 Assessment/Plan Lines/Catheters IV Catheter Type (from Nrs): Peripheral IV Renae in Place (from Nrsg): No Assessment/Plan Chief Complaint/Hosp Course IMPRESSION: Rib fractures. RECOMMENDATIONS: Will plan for surgery. Will continue pulmonary toilet. Followup chest x-ray. Problems: Subjective 24 Hr Interval Summary Constitutional: improved Pain Control: mild Exam/Review of Systems Vital Signs Vitals Vital Signs Date Time Temp Pulse Resp B/P Pulse Ox O2 Delivery O2 Flow Rate FiO2 01/15/17 08:04 97.8 84 16 100/61 98 01/15/17 07:23 21 01/11/17 10:48 Room Air Intake and Output 01/14/17 01/14/17 01/15/17 15:00 23:00 07:00 Intake Total 780 ml 265 ml 2100 ml Output Total 600 ml Balance 780 ml 265 ml 1500 ml Exam ENMT: mucosa pink and moist, nl external ears & nose, nl lips & teeth, nl nasal mucosa & septum Neck: non-tender, supple Respiratory: clear to auscultation, normal air movement Cardiovascular: nl pulses, regular rate and rhythm Results Result Diagram: 01/13/17 0536 01/15/17 0527 ARASH DEY MD Jan 15, 2017 13:51
[2017-01-15 14:11] VITALS: BP 91/54; PULSE 54
[2017-01-15 15:04] VITALS: BP 85/54; RESP 18
[2017-01-15 18:00] VITALS: BP 107/51; PULSE 53
[2017-01-15] MEDS: HYDROCODONE/APAP (5/325) TAB PO PRN (18:05)
[2017-01-15 19:30] VITALS: BP 97/52; RESP 20
[2017-01-15] MEDS: FAMOTIDINE 20 MG TAB PO SCH (20:49)
[2017-01-16 02:00] VITALS: BP 96/54; RESP 20
[2017-01-16] MEDS: HYDROmorphONE 1 MG/ML SYG IV PRN ×6 (02:41→19:45)
[2017-01-16 06:02] LABS: AMYLASE 64 U/L (11-123)
[2017-01-16 06:03] LABS: CALCIUM 8.8 mg/dl (8.4-10.2); CREATININE 0.53 mg/dl (0.44-1.00); POTASSIUM 3.8 mmol/L (3.5-5.1)
[2017-01-16 07:22] VITALS: BP 95/55; RESP 20
[2017-01-16] MEDS: ALBUTEROL/IPRATROPIUM (NEB) 3 ML AMP HHN SCH ×3 (08:40→21:22)
[2017-01-16] MEDS: HYDROCODONE/APAP (5/325) TAB PO PRN ×2 (09:00→20:39)
[2017-01-16] MEDS: DOCUSATE SODIUM 100 MG CAP PO SCH ×2 (09:15→20:50)
[2017-01-16] MEDS: CHLORDIAZEPOXIDE 5 MG CAP PO SCH ×3 (09:15→20:40)
[2017-01-16] MEDS: FAMOTIDINE 20 MG TAB PO SCH (09:15)
[2017-01-16] MEDS: POLYETHYLENE GLYCOL 17 GM PACKET PO SCH ×2 (09:15→20:50)
[2017-01-16] MEDS: FOLIC ACID 1 MG TAB PO SCH (09:15)
[2017-01-16] MEDS: THIAMINE 100 MG TAB PO SCH (09:15)
[2017-01-16] MEDS: LIDOCAINE 5% PATCH TD SCH (09:16)
--- NOTE | 2017-01-16 10:04 | PN ---
Date/Time of Note Date/Time of Note DATE: 01/16/17 TIME: 10:02 Assessment/Plan VTE Prophylaxis VTE Prophylaxis Intervention: SCD's Lines/Catheters IV Catheter Type (from Nrs): Peripheral IV Urinary Cath still in place: No Assessment/Plan Chief Complaint/Hosp Course 1. Acute anterior right 10th and 11th rib fractures secondary to ground-level fall. The patient will be provided with adequate pain control. Thoracic surgery on the case. Continue pulmonary toilet. No plan for any surgical intervention. 2. Acute pancreatitis. Etiology could be alcohol induced. Improving. Will advance the diet. 3. Alcoholism. The patient will be continued on as needed benzodiazepines for any alcohol withdrawal delirium. The patient on tapering dose of Librium. 4. Cachexia. Etiology unclear. Evidence of protein calorie malnutrition, moderate. Will provide dietary supplements. Dietary consult. 5. Metabolic alkalosis. Resolved. 6. Frequent PVCs with 12-lead EKG. Most probably from electrolyte imbalances. Will replete electrolytes as indicated. 7. Anxiety disorder. The patient will be maintained on anxiolytics. 8. Fluids, electrolytes, and nutrition. Advance diet. 9. DVT prophylaxis. Bilateral sequential compression devices. 10. Plan. Continue pain control. Trend pancreatic enzymes. Advance diet. Case discussed with . Problems: Subjective 24 Hr Interval Summary Free Text/Dictation Complains of right rib cage pain. Exam/Review of Systems Vital Signs Vitals Vital Signs Date Time Temp Pulse Resp B/P Pulse Ox O2 Delivery O2 Flow Rate FiO2 01/16/17 08:41 55 16 97 21 01/16/17 07:22 98.0 95/55 Intake and Output 01/15/17 01/15/17 01/16/17 15:00 23:00 07:00 Intake Total 625 ml 1066 ml Output Total 1200 ml Balance 625 ml -134 ml Exam General: Thin, frail looking, 56 year-old female lying in bed in no apparent distress. HEENT: Normocephalic, atraumatic. Eyes: Anicteric sclerae, conjunctivae clear. ENT: Nasal septum midline, oral mucosa moist. Neck supple, no JVD noticed. Respiratory: Bilaterally clear breath sounds. No use of accessory muscles of respiration. No adventitious breath sounds. Cardiovascular: S1, S2 heard. Occasional skipped beats. Abdomen: Soft, nontender, and nondistended. Bowel sounds positive in all 4 quadrants. Genitourinary: Deferred. Extremities: No cyanosis, no clubbing, no edema. Peripheral pulses palpable. Neurologic: Cranial nerves II through XII grossly intact. The patient is awake, alert, and oriented. Skin: Normal skin turgor. No skin rashes. Results Result Diagram: 01/13/17 0536 01/16/17 0516 Results 24 hrs Laboratory Tests Test 01/16/17 05:16 Sodium Level 144 Potassium Level 3.8 Chloride Level 110 Carbon Dioxide Level 29 Anion Gap 9 Blood Urea Nitrogen 2 L Creatinine 0.53 Glucose Level 85 Calcium Level 8.8 Magnesium Level 1.8 Amylase Level 64 Lipase 449 H Medications Medications Current Medications Ondansetron HCl (Zofran Inj) 4 mg Q6H PRN IV NAUSEA AND/OR VOMITING Last administered on 01/15/17 04:04; Admin Dose 4 MG; Start 01/11/17 at 10:00 Acetaminophen/ Hydrocodone Bitart ([place] (5/325)) 1 tab Q6H PRN PO PAIN LEVEL 4 -6 Last administered on 01/16/17 09:00; Admin Dose 1 TAB; Start 01/11/17 at 10:00 Lorazepam (Ativan) 1 mg Q2H PRN IV Anxiety Last administered on 01/15/17 11: 18; Admin Dose 1 MG; Start 01/11/17 at 10:00 Thiamine HCl (Vitamin B1) 100 mg DAILY PO Last administered on 01/16/17 09:15 ; Admin Dose 100 MG; Start 01/12/17 at 09:00 Folic Acid (Folic Acid) 1 mg DAILY PO Last administered on 01/16/17 09:15; Admin Dose 1 MG; Start 01/11/17 at 13:00 Hydromorphone HCl (Dilaudid) 1 mg Q3H PRN IV pain Last administered on 09:24; Admin Dose 1 MG; Start 01/12/17 at 11:00 Chlordiazepoxide (Librium) 10 mg TID PO Last administered on 01/16/17 09:15; Admin Dose 10 MG; Start 01/13/17 at 13:00 Docusate Sodium (Colace) 100 mg BID PO Last administered on 01/16/17 09:15; Admin Dose 100 MG; Start 01/13/17 at 21:00 Bisacodyl (Dulcolax) 10 mg DAILY PRN PO CONSTIPATION Last administered on 01/14 12:40; Admin Dose 10 MG; Start 01/13/17 at 14:30 Lidocaine (Lidoderm) 1 patch DAILY TD Last administered on 01/16/17 09:16; Admin Dose 1 PATCH; Start 01/14/17 at 09:30 Magnesium Hydroxide (Milk Of Mag) 30 ml DAILY PRN PO CONSTIPATION Last administered on 01/14/17 15:28; Admin Dose 30 ML; Start 01/14/17 at 15:00 Polyethylene Glycol (Miralax) 17 gm BID PO Last administered on 01/16/17 09: 15; Admin Dose 17 GM; Start 01/14/17 at 21:00 Sodium Biphosphate/ Sodium Phosphate (Fleet Enema) 133 ml DAILY PRN [place] CONSTIPATION; Start 01/14/17 at 15:00 Famotidine (Pepcid) 20 mg Q12 PO Last administered on 01/16/17 09:15; Admin Dose 20 MG; Start 01/15/17 at 21:00 EROS HOPE NP Jan 16, 2017 10:04
[2017-01-16 13:07] VITALS: BP 107/65; PULSE 78; RESP 16
[2017-01-16 13:30] VITALS: BP 125/78; RESP 18
--- NOTE | 2017-01-16 13:30 | PN ---
Date/Time of Note Date/Time of Note DATE: 01/16/17 TIME: 13:29 Assessment/Plan Lines/Catheters IV Catheter Type (from Nrsg): [place] Renae in Place (from Nrsg): No Assessment/Plan Chief Complaint/Hosp Course IMPRESSION: Rib fractures. RECOMMENDATIONS: Will plan for surgery. Will continue pulmonary toilet. Followup chest x-ray. Problems: Subjective 24 Hr Interval Summary Constitutional: improved Pain Control: mild Exam/Review of Systems Vital Signs Vitals Vital Signs Date Time Temp Pulse Resp B/P Pulse Ox O2 Delivery O2 Flow Rate FiO2 01/16/17 13:07 78 16 107/65 01/16/17 08:41 97 21 01/16/17 07:22 98.0 Intake and Output 01/15/17 01/15/17 01/16/17 14:59 22:59 06:59 Intake Total 625 ml 1066 ml Output Total 1200 ml Balance 625 ml -134 ml Exam Neck: non-tender, supple Respiratory: clear to auscultation, normal air movement Cardiovascular: nl pulses, regular rate and rhythm Gastrointestinal: nl liver, spleen, non-tender, soft Results Result Diagram: 01/13/17 0536 01/16/17 0516 ARASH DEY MD Jan 16, 2017 13:30
[2017-01-16] MEDS: ONDANSETRON 4 MG INJ IV PRN ×2 (13:45→20:50)
[2017-01-16 19:27] VITALS: BP 102/64; RESP 18
[2017-01-16] MEDS: LORAZEPAM 2 MG INJ IV PRN (20:39)
[2017-01-17] VITALS (8 sets, daily range): BP systolic 81–99; BP diastolic 41–63; PULSE 48–83; RESP 16–20
[2017-01-17] MEDS: LORAZEPAM 2 MG INJ IV PRN (00:52)
[2017-01-17] MEDS ORDERED: KETOROLAC 30 MG INJ ONE (03:13)
[2017-01-17] MEDS ORDERED: KETOROLAC 30 MG INJ IM ONE (03:18)
[2017-01-17] MEDS ORDERED: SOD CHLORIDE 0.9% 500 ML IV ONE ×2 (03:30→04:30)
[2017-01-17] MEDS ORDERED: KETOROLAC 30 MG INJ IV ONE (03:32)
[2017-01-17] MEDS ORDERED: HYDROCODONE/APAP (10/325) TAB PO ONE (04:30)
[2017-01-17 06:13] LABS: HEMATOCRIT 27.7 % (37.0-47.0); HEMOGLOBIN 9.3 g/dl (12.0-16.0); MEAN CORPUSCULAR HEMOGLOBIN 33.5 pg (29.0-33.0); MEAN CORPUSCULAR HGB CONC 33.6 g/dl (32.0-37.0); MEAN CORPUSCULAR VOLUME 99.6 fl (82.0-101.0); MEAN PLATELET VOLUME 10.3 fl (7.4-10.4); PLATELET COUNT 309 10^3/UL (140-415); RED BLOOD COUNT 2.78 10^6/ul (4.20-5.40); RED CELL DISTRIBUTION WIDTH 15.2 % (11.5-14.5); WHITE BLOOD COUNT 4.4 10^3/ul (4.8-10.8)
[2017-01-17] MEDS: SOD CHLORIDE 0.9% 1,000 ML IV SCH ×2 (06:30→20:42)
[2017-01-17] MEDS ORDERED: traMADol 50 MG TAB PO ONE (06:30)
[2017-01-17 06:38] LABS: CALCIUM 8.2 mg/dl (8.4-10.2); CREATININE 0.51 mg/dl (0.44-1.00); POTASSIUM 3.6 mmol/L (3.5-5.1)
[2017-01-17 07:12] LABS: AMYLASE 94 U/L (11-123)
[2017-01-17] MEDS: ALBUTEROL/IPRATROPIUM (NEB) 3 ML AMP HHN SCH ×3 (08:00→19:25)
[2017-01-17 09:00] LABS: ANISOCYTOSIS 1+ (0-0); BASOPHILS % (M) 2 % (0-2); EOSINOPHILS % (M) 5 % (0-7); MONOCYTES % (M) 3 % (0-11); PLATELET ESTIMATE NORMAL; POLYCHROMASIA 1+ (0-0)
[2017-01-17] MEDS: POLYETHYLENE GLYCOL 17 GM PACKET PO SCH ×2 (09:41→20:42)
[2017-01-17] MEDS: LIDOCAINE 5% PATCH TD SCH ×2 (09:42→13:36)
[2017-01-17] MEDS: DOCUSATE SODIUM 100 MG CAP PO SCH ×2 (09:42→20:42)
[2017-01-17] MEDS: FOLIC ACID 1 MG TAB PO SCH (09:43)
[2017-01-17] MEDS: THIAMINE 100 MG TAB PO SCH (09:43)
[2017-01-17] MEDS: CHLORDIAZEPOXIDE 5 MG CAP PO SCH ×3 (09:43→20:41)
--- NOTE | 2017-01-17 11:24 | RADRPT ---
Echocardiogram Report Patient Name: ANKUSH OSEI Gender: Female Date: 1960 Study Date: 16-Jan-2017 Termination Clerk: Molina Domingo [facility] Location: 628 Ref. Physician: EROS HOPE Quality: Technically Difficult Study Procedures: Transthoracic echocardiogram with complete 2D, M-Mode, and doppler examination. Indications: Evaluate Left Ventricular function. 2D/M Mode Doppler Measurement Value Normal Ranges Measurement Value Normal Ranges LVIDd 2D 3.6 3.5 - 5.6 cm AV Peak [place] 1.4 m/sec LVIDs 2D 1.9 2.1 - 4.1 cm AV Peak PG 7.5 mmHg LVPWd 2D 0.9 0.6 - 1.1 cm LVOT Peak [place]haun 1.3 m/sec IVSd 2D 0.8 0.6 - 1.1 cm LVOT Peak PG 6.6 mmHg AoR Diam 2D 2.1 2.0 - 3.7 cm MV E Peak [place]haun 0.6 m/sec EDV 2D 53.0 cm3 MV A Peak [place]ha[place] 0.8 m/sec ESV 2D 6.3 cm3 MV E/A 0.8 LA Dimen 2D 2.3 2.3 - 4.0 cm MV Decel Time 225 msec MV Decel [place] 3 MV E/A 0.8 TR Peak Deshaun 2.0 m/sec TR Peak PG 16.5 mmHg RVSP 20.0 mmHg Findings Left Ventricle: Normal left ventricular systolic function. Normal left ventricular cavity size. Normal left ventricular wall thickness. Ejection fraction is visually estimated at 65 %. Tissue Doppler/Mitral Doppler indices are consistent with impaired relaxation (Stage I diastolic dysfunction). Right Ventricle: Normal right ventricular size. Normal right ventricular systolic function. Left Atrium: The left atrium is normal in size. Right Atrium: The right atrium is normal in size. Mitral Valve: Normal appearance and function of the mitral valve with trace physiologic regurgitation. Aortic Valve: Normal appearance of the aortic valve. No significant aortic stenosis or insufficiency. Tricuspid Valve: Normal appearance of the tricuspid valve. Estimated peak PA systolic pressure 20 mmHg. There is trace tricuspid regurgitation. Pulmonic Valve: Pulmonic valve not well visualized. Pericardium: Normal pericardium with no significant pericardial effusion. Aorta: Normal aortic root. IVC: Normal size and normal respiratory collapse consistent with normal right atrial pressure. Conclusions 1.Normal left ventricular systolic function. Normal left ventricular cavity size. Normal left ventricular wall thickness. Ejection fraction is visually estimated at 65 %. Tissue Doppler/Mitral Doppler indices are consistent with impaired relaxation (Stage I diastolic dysfunction). 2.No significant valvular stenosis or regurgitation seen. 3.Estimated peak PA systolic pressure 20 mmHg based on RA pressure of 3 mmHg. Electronically Signed By: Lj Márquez 17-Jan-2017 11:23:39 -0800 Patient Name: ANKUSH OSEI Study Date: 16-Jan-2017 [id number]
[2017-01-17] MEDS: morphine 2 MG INJ IV PRN ×5 (11:38→23:38)
[2017-01-17] MEDS ORDERED: KETOROLAC 30 MG INJ IV PRN (12:30)
--- NOTE | 2017-01-17 13:15 | RADRPT ---
Vent Rate: 98 bpm RR Interval: 0 msec MI Interval: 134 msec QRS Duration: 74 msec QT Interval: 346 msec QTC Interval: 441 msec P-R-T [place]: 60 - 77 - 34 degrees Sinus rhythm with frequent premature ventricular complexes in a pattern of bigeminy Septal infarct , age undetermined Abnormal ECG Electronically Signed By: Cristo Villegas [id number]
[2017-01-17] MEDS: ONDANSETRON 4 MG INJ IV PRN (13:37)
--- NOTE | 2017-01-17 17:04 | PN ---
Date/Time of Note Date/Time of Note DATE: 01/17/17 TIME: 16:53 Assessment/Plan VTE Prophylaxis VTE Prophylaxis Intervention: SCD's Lines/Catheters IV Catheter Type (from Nrs): Saline Lock Urinary Cath still in place: No Assessment/Plan Assessment/Plan 1. Acute anterior right 10th and 11th rib fractures secondary to ground-level fall - Patient still experiencing pain in right chest wall and offered Lidoderm patch since providing relief to back area. - Will d/c dilaudid and continue on Morphine IV. Advised to use Toradol IV PRN. Encouraged PO Shohola to assist with d/c plan for pain medication management. Unable to tolerate PO NSAIDs. - CT surgery on board and recommendations appreciated. Continue pulmonary toilet 2. Acute pancreatitis- improving - Etiology could be alcohol induced - Tolerating diet 3. Alcoholism - Librium taper - No signs of DTs - Ativan PRN 4. Cachexia. Etiology unclear - Evidence of protein calorie malnutrition, moderate - Will provide dietary supplements - Dietary consult appreciated 5. Metabolic alkalosis- Resolved. 6. Frequent PVCs with 12-lead EKG - Most probably from electrolyte imbalances - Will replete electrolytes as indicated. 7. Anxiety disorder - Continue on anxiolytics. 8. Disposition - Pain control - CT surgery input - Continue monitoring on med/surg Subjective 24 Hr Interval Summary Free Text/Dictation Patient experiencing pain in left chest wall at site of rib fracture. Patient is getting very discouraged due to pain and having difficulty even enjoying her food secondary to pain with eating. Exam/Review of Systems Vital Signs Vitals Vital Signs Date Time Temp Pulse Resp B/P Pulse Ox O2 Delivery O2 Flow Rate FiO2 01/17/17 16:27 83 22 99 21 01/17/17 13:38 98.6 95/63 Intake and Output 01/16/17 01/16/17 01/17/17 15:00 23:00 07:00 Intake Total 740 ml 1480 ml 1000 ml Output Total 600 ml 700 ml Balance 740 ml 880 ml 300 ml Exam General: In mild distress secondary to pain. Neck supple, no JVD Respiratory: Bilaterally clear breath sounds. No use of accessory muscles of respiration. No adventitious breath sounds. Cardiovascular: S1, S2 heard. Occasional skipped beats. pain right chest wall Abdomen: Soft, nontender, and nondistended. Bowel sounds positive in all 4 quadrants. Extremities: No cyanosis, no clubbing, no edema. Peripheral pulses palpable. Neurologic: Cranial nerves II through XII grossly intact. The patient is awake, alert, and oriented. Skin: Normal skin turgor. No skin rashes. Results Result Diagram: 01/17/17 0539 01/17/17 0539 Results 24 hrs Laboratory Tests Test 01/17/17 05:39 White Blood Count 4.4 #L Red Blood Count 2.78 L Hemoglobin 9.3 L Hematocrit 27.7 L Mean Corpuscular Volume 99.6 Mean Corpuscular Hemoglobin 33.5 H Mean Corpuscular Hemoglobin Concent 33.6 Red Cell Distribution Width 15.2 H Platelet Count 309 Mean Platelet Volume 10.3 Neutrophils % Segmented Neutrophils % (Manual) 41 Band Neutrophils % (Manual) 2 Lymphocytes % Lymphocytes % (Manual) 47 Monocytes % Monocytes % (Manual) 3 Eosinophils % Eosinophils % (Manual) 5 Basophils % Basophils % (Manual) 2 Nucleated Red Blood Cells % 0.0 Neutrophils # Neutrophils # (Manual) 1.8 Band Neutrophils # 0.0 Absolute Lymphocytes (Manual) 2.0 Lymphocytes # Monocytes # Absolute Monocytes (Manual) 0.1 L Eosinophils # Basophils # Basophils # (Manual) 0.0 Nucleated Red Blood Cells # Platelet Estimate NORMAL Polychromasia 1+ Anisocytosis 1+ Macrocytosis 1+ Sodium Level 145 H Potassium Level 3.6 Chloride Level 111 H Carbon Dioxide Level 26 Anion Gap 12 Blood Urea Nitrogen 4 L Creatinine 0.51 Glucose Level 102 Calcium Level 8.2 L Amylase Level 94 Lipase 893 H Medications Medications Current Medications Ondansetron HCl (Zofran Inj) 4 mg Q6H PRN IV NAUSEA AND/OR VOMITING Last administered on 01/17/17 13:37; Admin Dose 4 MG; Start 01/11/17 at 10:00 Acetaminophen/ Hydrocodone Bitart (Shohola (5/325)) 1 tab Q6H PRN PO PAIN LEVEL 4 -6 Last administered on 01/16/17 20:39; Admin Dose 1 TAB; Start 01/11/17 at 10:00 Lorazepam (Ativan) 1 mg Q2H PRN IV Anxiety Last administered on 01/17/17 00: 52; Admin Dose 1 MG; Start 01/11/17 at 10:00 Thiamine HCl (Vitamin B1) 100 mg DAILY PO Last administered on 01/17/17 09:43 ; Admin Dose 100 MG; Start 01/12/17 at 09:00 Folic Acid (Folic Acid) 1 mg DAILY PO Last administered on 01/17/17 09:43; Admin Dose 1 MG; Start 01/11/17 at 13:00 Docusate Sodium (Colace) 100 mg BID PO Last administered on 01/17/17 09:42; Admin Dose 100 MG; Start 01/13/17 at 21:00 Bisacodyl (Dulcolax) 10 mg DAILY PRN PO CONSTIPATION Last administered on 01/14 12:40; Admin Dose 10 MG; Start 01/13/17 at 14:30 Lidocaine (Lidoderm) 1 patch DAILY TD Last administered on 01/17/17 09:42; Admin Dose 1 PATCH; Start 01/14/17 at 09:30 Magnesium Hydroxide (Milk Of Mag) 30 ml DAILY PRN PO CONSTIPATION Last administered on 01/14/17 15:28; Admin Dose 30 ML; Start 01/14/17 at 15:00 Polyethylene Glycol (Miralax) 17 gm BID PO Last administered on 01/17/17 09: 41; Admin Dose 17 GM; Start 01/14/17 at 21:00 Sodium Biphosphate/ Sodium Phosphate (Fleet Enema) 133 ml DAILY PRN VT CONSTIPATION; Start 01/14/17 at 15:00 Chlordiazepoxide 5 mg 5 mg TID PO Last administered on 01/17/17 09:43; Admin Dose 5 MG; Start 01/16/17 at 13:00 Sodium Chloride (NS) 1,000 ml @ 70 mls/hr [id number] IV ; Start 01/17/17 at 06:30 Morphine Sulfate (morphine) 2 mg Q3H PRN IV PAIN LEVEL 7-10 Last administered on 01/17/17 14:43; Admin Dose 2 MG; Start 01/17/17 at 11:00 Lidocaine (Lidoderm) 1 patch DAILY TD Last administered on 01/17/17 13:36; Admin Dose 1 PATCH; Start 01/17/17 at 12:30 Ketorolac Tromethamine (Toradol) 30 mg Q6H PRN IV PAIN; Start 01/17/17 at 12: 30; Stop 01/20/17 at 12:29 LUISA GODDARD MD Jan 17, 2017 17:04
--- NOTE | 2017-01-17 19:57 | PN ---
Date/Time of Note Date/Time of Note DATE: 01/17/17 TIME: 19:57 Assessment/Plan Lines/Catheters IV Catheter Type (from Nrsg): Saline Lock Renae in Place (from Nrsg): No Assessment/Plan Chief Complaint/Hosp Course IMPRESSION: Rib fractures. RECOMMENDATIONS: Will plan for surgery. Will continue pulmonary toilet. Followup chest x-ray. Problems: Subjective 24 Hr Interval Summary Constitutional: improved Pain Control: mild Exam/Review of Systems Vital Signs Vitals Vital Signs Date Time Temp Pulse Resp B/P Pulse Ox O2 Delivery O2 Flow Rate FiO2 01/17/17 19:25 89 20 99 21 01/17/17 13:38 98.6 95/63 Intake and Output 01/16/17 01/16/17 01/17/17 15:00 23:00 07:00 Intake Total 740 ml 1480 ml 1000 ml Output Total 600 ml 700 ml Balance 740 ml 880 ml 300 ml Exam ENMT: mucosa pink and moist, nl external ears & nose, nl lips & teeth, nl nasal mucosa & septum Neck: non-tender, supple Respiratory: clear to auscultation, normal air movement Cardiovascular: nl pulses, regular rate and rhythm Results Result Diagram: 01/17/17 0539 01/17/17 0539 ARASH DEY MD Jan 17, 2017 19:57
[2017-01-17] MEDS: MAGNESIUM HYDROXIDE 30ML CUP PO PRN (20:42)
[2017-01-18 02:51] VITALS: BP 101/48; RESP 20
[2017-01-18] MEDS: morphine 2 MG INJ IV PRN ×3 (03:03→08:40)
[2017-01-18] MEDS: LORAZEPAM 2 MG INJ IV PRN ×2 (04:37→09:55)
[2017-01-18 06:33] LABS: BASOPHIL # 0.1 10^3/ul (0.0-0.1); BASOPHILS % 1.1 % (0.0-2.0); EOSINOPHILS # 0.1 10^3/ul (0.0-0.5); EOSINOPHILS % 1.7 % (0.0-7.0); HEMATOCRIT 26.8 % (37.0-47.0); HEMOGLOBIN 8.9 g/dl (12.0-16.0); LYMPHOCYTES # 2.2 10^3/ul (0.8-2.9); LYMPHOCYTES % 47.8 % (15.0-51.0); MEAN CORPUSCULAR HEMOGLOBIN 33.2 pg (29.0-33.0); MEAN CORPUSCULAR HGB CONC 33.2 g/dl (32.0-37.0); MEAN PLATELET VOLUME 11.1 fl (7.4-10.4); MONOCYTES % 21.7 % (0.0-11.0); NEUTROPHIL # 1.3 10^3/ul (1.6-7.5); NEUTROPHILS % 27.3 % (39.0-77.0); PLATELET COUNT 297 10^3/UL (140-415); RED BLOOD COUNT 2.68 10^6/ul (4.20-5.40); WHITE BLOOD COUNT 4.7 10^3/ul (4.8-10.8)
[2017-01-18 07:33] LABS: ALBUMIN 2.9 g/dl (3.3-4.9); CALCIUM 8.6 mg/dl (8.4-10.2); CREATININE 0.62 mg/dl (0.44-1.00); MAGNESIUM 1.7 mg/dl (1.7-2.5); PHOSPHORUS 5.2 mg/dl (2.5-4.9); POTASSIUM 3.7 mmol/L (3.5-5.1)
[2017-01-18 07:41] VITALS: BP 90/60; RESP 16
[2017-01-18] MEDS: ALBUTEROL/IPRATROPIUM (NEB) 3 ML AMP HHN SCH (07:50)
[2017-01-18] MEDS: THIAMINE 100 MG TAB PO SCH (08:42)
[2017-01-18] MEDS: FOLIC ACID 1 MG TAB PO SCH (08:42)
[2017-01-18] MEDS: POLYETHYLENE GLYCOL 17 GM PACKET PO SCH (08:42)
[2017-01-18] MEDS: DOCUSATE SODIUM 100 MG CAP PO SCH (08:42)
[2017-01-18] MEDS: CHLORDIAZEPOXIDE 5 MG CAP PO SCH (08:43)
[2017-01-18] MEDS: LIDOCAINE 5% PATCH TD SCH ×2 (08:44)
[2017-01-18] MEDS: SOD CHLORIDE 0.9% 1,000 ML IV SCH (10:09)
--- NOTE | 2017-01-18 15:16 | DS ---
Date/Time of Note Date/Time of Note DATE: 01/18/17 TIME: 15:11 Discharge Summary Admission/Discharge Info Admit Date/Time Jan 11, 2017 at 11:35 Discharge Date/Time Jan 18, 2017 at 11:40 Left AGAINST MEDICAL ADVICE Discharge Diagnosis 1. Acute anterior right 10th and 11th rib fractures secondary to ground-level fall. 2. Acute pancreatitis. 3. Alcoholism. 4. Protein calorie malnutrition. Moderate to severe. 5. Anxiety disorder. Patient Condition: Fair Consults 1. Pradeep Cantu MD, Thoracic Surgery. 2. Bryant Nelson MD, Pain Management. Procedures RUQ Ultrasound IMPRESSION: Moderate to severe fatty infiltration of the liver. No cholelithiasis or acute cholecystitis. Normal CBD. The visualized pancreas is unremarkable although ultrasound is insensitive in the detection of pancreatic pathology. CT abdomen & Pelvis IMPRESSION: 1. Mild linear scarring or atelectasis at the left lung base posteriorly. 2. Hepatomegaly. 3. Fatty metamorphosis of the liver. 4. Mildly dilated common bile duct with no obstructing lesion visualized. Clinical correlation advised. 5. Otherwise unremarkable contrast enhanced CT scan of the abdomen and pelvis. Brain CT IMPRESSION: 1. Mild diffuse volume loss. 2. Microangiopathic ischemic changes. 3. Mild mucosal thickening partially visualized superior right maxillary sinus. B/L Rib Series IMPRESSION: 1. Acute anterior right 10th and 11th rib fracture deformities proximal to the costochondral junctions. 2. Old right seventh and eighth rib fractures. 3. Chronic lung changes. Hx of Present Illness Reason for admission: Chest wall pain secondary to ground-level fall at home, abdominal pain. This is a 56-year-old female with past medical history of uterine cancer, status post hysterectomy, alcoholism, and chronic back pain, who came to the emergency room with complaint of rib pain status post fall at home approximately 2 days prior to the ER visit. The patient verbalized that she was trying to get up from a toilet seat and she fell backwards. The patient was unclear about any loss of consciousness associated with the fall. It is also unclear why the patient waited for 2 days before she sought medical attention. The patient verbalized that she hit her head. The patient was also complaining of multiple episodes of nonbilious, nonbloody vomiting. The patient denied any diarrhea. The patient had evidence of pancreatitis with a lipase level of 4364. The patient underwent a bilateral rib series that showed acute anterior right 10th and 11th rib fractures. Her brain CT was negative for any acute findings. The patient was treated with IV analgesics, IV antibiotics, and potassium supplements in the emergency room. Hospital Course The patient was admitted to inpatient setting. The patient was provided with adequate pain control. Thoracic surgery consult was obtained for the underlying rib fracture. Thoracic surgery recommended no surgical interventions [although the notes says plan for surgery that could be a typo]. The patient was noticed her underlying acute pancreatitis. The patient was kept n.p.o. The patient was provided with IV hydration. The reason for the patient's underlying pancreatitis could be most probably alcohol induced. The patient is a daily alcohol abuser. The patient's pancreatic enzyme levels were trended with improvement of pancreatic enzymes. Once the patient's pancreatic enzyme levels were trending down, she was started on a clear liquid diet and the patient's diet was advanced to a regular consistency diet without any significant gastrointestinal symptoms. Patient has history of alcoholism. The patient was maintained on multivitamins including thiamine and tapering dose of Librium to avoid any alcohol withdrawal delirium. The patient was noticed to be cachectic with moderate to severe malnutrition. The patient was provided with dietary supplements. The patient was seen and evaluated by a registered dietitian. The patient has underlying anxiety disorder. She was maintained on anxiolytics for the same. The patient was noticed to have frequent PVCs. This could have been most probably secondary to her underlying electrolyte imbalances. The patient's 2D echocardiogram showed preserved left ventricular ejection fraction. The patient was noticed to be severely debilitated with unsteady gait. Consequently, physical therapy was following the patient. On , the patient verbalized that she wanted to leave the hospital AGAINST MEDICAL ADVICE. She was instructed on the consequences of leaving the hospital AGAINST MEDICAL ADVICE including the possibility of . Nevertheless, the patient left the hospital AGAINST MEDICAL ADVICE. No discharge planning was done since patient left the hospital AGAINST MEDICAL ADVICE. Case discussed with . Home Meds Active Scripts Hydrocodone/Acetaminophen ([place] 10-325 Tablet) 1 Each Tablet, 1 TAB PO Q6H Y for PAIN, #7 TAB Prov:ZANE MARQUEZ MD 10/10/16 Reported Medications Magaldrate/Simethicone* (Mag-Al Plus Suspension*) 30 Ml Oral.susp, 30 ML PO PRN Y for GASTROINTESTINAL UPSET, ML 10/10/16 Duloxetine Hcl* (Cymbalta*) 30 Mg Capsule.dr, 30 MG PO DAILY, CAP 10/10/16 Paroxetine Hcl* (Paxil*) 20 Mg Tablet, 20 MG PO DAILY, TAB 10/10/16 Omeprazole* (Prilosec*) 20 Mg Capsule.dr, 20 MG PO DAILY, CAP 01/13/14 Discontinued Reported Medications Hydrocodone/Acetaminophen ([place] 5-325 Tablet) 1 Each Tablet, 1 EACH PO DAILY Y for SEVERE PAIN LEVEL 7-10, TAB 04/14/16 Discontinued Scripts Ondansetron (Ondansetron Odt) 4 Mg Tab.rapdis, 4 MG PO Q6H Y for NAUSEA AND/OR VOMITING, #30 TAB Prov:ZANE MARQUEZ MD 10/10/16 Follow-up Plan No follow-up plan was done since the patient left the hospital against medical advice. Primary Care Provider [facility] Time spent on discharge: < 30 minutes Pending Labs Laboratory Tests Test 01/18/17 05:10 White Blood Count 4.710^3/ul (4.8-10.8) Red Blood Count 2.6810^6/ul (4.20-5.40) Hemoglobin 8.9g/dl (12.0-16.0) Hematocrit 26.8% (37.0-47.0) Mean Corpuscular Volume 100.0fl (82.0-101.0) Mean Corpuscular Hemoglobin 33.2pg (29.0-33.0) Mean Corpuscular Hemoglobin Concent 33.2g/dl (32.0-37.0) Red Cell Distribution Width 16.0% (11.5-14.5) Platelet Count 89819^3/UL (140-415) Mean Platelet Volume 11.1fl (7.4-10.4) Neutrophils % 27.3% (39.0-77.0) Lymphocytes % 47.8% (15.0-51.0) Monocytes % 21.7% (0.0-11.0) Eosinophils % 1.7% (0.0-7.0) Basophils % 1.1% (0.0-2.0) Nucleated Red Blood Cells % 0.0/100WBC (0.0-0.0) Neutrophils # 1.310^3/ul (1.6-7.5) Lymphocytes # 2.210^3/ul (0.8-2.9) Monocytes # 1.010^3/ul (0.3-0.9) Eosinophils # 0.110^3/ul (0.0-0.5) Basophils # 0.110^3/ul (0.0-0.1) Nucleated Red Blood Cells # 0.010^3/ul (0.0-0.0) Sodium Level 146mmol/L (135-144) Potassium Level 3.7mmol/L (3.5-5.1) Chloride Level 108mmol/L (97-110) Carbon Dioxide Level 27mmol/L (21-31) Anion Gap 15 (8-16) Blood Urea Nitrogen 9mg/dl (7-20) Creatinine 0.62mg/dl (0.44-1.00) Glucose Level 101mg/dl (70-220) Calcium Level 8.6mg/dl (8.4-10.2) Phosphorus Level 5.2mg/dl (2.5-4.9) Magnesium Level 1.7mg/dl (1.7-2.5) Albumin 2.9g/dl (3.3-4.9) EROS HOPE NP Jan 18, 2017 15:16
== END 2017-01-18 11:40 | disposition left against medical advice (07) | DRG 183 ==
LOC: E/R 01:50 → MS2 11:35
PROVIDERS: ADMIT Internal Medicine; ATTEND Internal Medicine
DX: S22.41XA Multiple fractures of ribs, right side, initial encounter for closed fracture (principal); K85.20 Alcohol induced acute pancreatitis without necrosis or infection; E43 Unspecified severe protein-calorie malnutrition; E87.3 Alkalosis; R64 Cachexia; Z68.1 Body mass index [BMI] 19.9 or less, adult; F10.20 Alcohol dependence, uncomplicated; F41.9 Anxiety disorder, unspecified; I10 Essential (primary) hypertension; E78.5 Hyperlipidemia, unspecified; I49.3 Ventricular premature depolarization; W18.11XA Fall from or off toilet without subsequent striking against object, initial encounter; Y92.012 Bathroom of single-family (private) house as the place of occurrence of the external cause; R53.81 Other malaise; R26.81 Unsteadiness on feet
CPT/HCPCS: 36415; 70450; 71010; 71110; 74177; 76705; 80048; 80053; 80061; 80069; 80307; 81001; 82140; 82150; 82306; 82652; 83036; 83690; 83735; 84100; 84134; 84439; 84443; 85025; 85610; 85730; 93005; 93306; 94640; 94664; 96374; 96375; 96376; 97116; 97163; J0696; J1170; J1885; J2060; J2270; J2405; J3411; J3475; J3480; J7030; J7040; J7070; Q9967

== ENCOUNTER 2017-02-09 13:30 | Emergency (ER) | payer OTHER ==
[~2017-02-09] VITALS: Ht 157.5 cm; Wt 39.5 kg
[~2017-02-09 13:30] MED LIST changes: -HYDR-906 PO; -ONDA4TAB14 PO
[2017-02-09 13:35] VITALS: Ht 157.5 cm; Wt 39.5 kg
--- NOTE | 2017-02-09 14:32 | ERD ---
ER Documentation Chief Complaint Chief Complaint Complains of back and side pain x 3 days Hx of rib FX x 1 week HPI 56-year-old female with history of uterine cancer status post hysterectomy and pancreatitis is status post admission 1 month ago, presents to the emergency department complaining of epigastric pain radiating to the back for the last 3 days, associated with nausea but no vomiting. The pain is dull, 8/10, constant. The patient denies fevers, chills, diarrhea, constipation. During her last admission on 01/16/17 her lipase was 890. ROS A 12-point review of systems was performed and negative other than presented in the history of present illness. SYSTEMIC symptoms: no fever, chills, no night sweats, no weight loss EYE symptoms: No blurred vision, no eye discharge OTOLARYNGEAL symptoms: No hearing loss. No ear pain, no sore throat CARDIOVASCULAR symptoms: No chest pain or discomfort, no palpitations. PULMONARY symptoms: No dyspnea, no cough, no wheezing. GASTROINTESTINAL symptoms: Per HPI MUSCULOSKELETAL symptoms: No arthralgias, no muscle aches. NEUROLOGY symptoms: No confusion, no syncope, no numbness or tingling. SKIN: No rashes Medications Home Meds Active Scripts Ondansetron (Ondansetron Odt) 4 Mg Tab.rapdis, 4 MG PO Q6H Y for NAUSEA AND/OR VOMITING, #20 TAB Prov:DELMA MESSINA MD 02/09/17 Ranitidine Hcl* (Zantac*) 150 Mg Tablet, 150 MG PO BID Y for EPIGASTRIC PAIN, # 30 TAB Prov:DELMA MESSINA MD 02/09/17 Hydrocodone/Acetaminophen ([place] 5-325 Tablet) 1 Each Tablet, 1 TAB PO Q6H Y for PAIN, #20 TAB Prov:DELMA MESSINA MD 02/09/17 Hydrocodone/Acetaminophen ([place] 10-325 Tablet) 1 Each Tablet, 1 TAB PO Q6H Y for PAIN, #7 TAB Prov:ZANE MARQUEZ MD 10/10/16 Reported Medications Magaldrate/Simethicone* (Mag-Al Plus Suspension*) 30 Ml Oral.susp, 30 ML PO PRN Y for GASTROINTESTINAL UPSET, ML 10/10/16 Duloxetine Hcl* (Cymbalta*) 30 Mg Capsule.dr, 30 MG PO DAILY, CAP 10/10/16 Paroxetine Hcl* (Paxil*) 20 Mg Tablet, 20 MG PO DAILY, TAB 10/10/16 Omeprazole* (Prilosec*) 20 Mg Capsule.dr, 20 MG PO DAILY, CAP 01/13/14 Allergies Allergies: Coded Allergies: No Known Allergy (Verified , 01/11/17) PMhx/Soc History of Surgery: Yes (HYSTERECTOMY 10YEARS AGO, BLADDER BX) Anesthesia Reaction: No Hx Neurological Disorder: No Hx Respiratory Disorders: No Hx Cardiac Disorders: No Hx Psychiatric Problems: Yes (DEPRESSION AND ANXIETY) Hx Miscellaneous Medical Probl: Yes (See EMR) Hx Alcohol Use: Yes Hx Substance Use: No Hx Tobacco Use: Yes Physical Exam Vitals Vital Signs Date Time Temp Pulse Resp B/P Pulse Ox O2 Delivery O2 Flow Rate FiO2 02/09/17 13:35 99.3 84 20 110/67 99 Physical Exam Patient is in mild distress due to pain, vital signs stable. Alert and fully oriented. EYES: PERRLA, EOMI, Sclera and conjunctiva appear normal. EARS: Canals clear, tympanic membranes WNL THROAT: Normal oropharynx. NECK: Supple, No lymphadenopathy. Full ROM without pain or tenderness. HEART: RRR, no rubs, murmurs, clicks or gallops. LUNGS: Clear to auscultation. ABDOMEN: Soft, moderate tenderness to deep palpation in epigastric area. No masses or hepatosplenomegaly. No peritoneal signs EXTREMITIES: No edema bilaterally. BACK: Full ROM, no deformity, normal back exam NEURO: Cranial nerves grossly intact, no motor or sensory deficit Result Diagram: 02/09/17 1505 02/09/17 1505 Results 24 hrs Laboratory Tests Test 02/09/17 15:05 White Blood Count 7.010^3/ul Red Blood Count 3.1110^6/ul Hemoglobin 10.2g/dl Hematocrit 30.8% Mean Corpuscular Volume 99.0fl Mean Corpuscular Hemoglobin 32.8pg Mean Corpuscular Hemoglobin Concent 33.1g/dl Red Cell Distribution Width 14.7% Platelet Count 42210^3/UL Mean Platelet Volume 10.7fl Neutrophils % 45.2% Lymphocytes % 36.6% Monocytes % 10.8% Eosinophils % 6.5% Basophils % 0.6% Nucleated Red Blood Cells % 0.0/100WBC Neutrophils # 3.210^3/ul Lymphocytes # 2.610^3/ul Monocytes # 0.810^3/ul Eosinophils # 0.510^3/ul Basophils # 0.010^3/ul Nucleated Red Blood Cells # 0.010^3/ul Urine Color YELLOW Urine Clarity CLEAR Urine pH 5.0 Urine Specific [place] 1.025 Urine Ketones NEGATIVEmg/dL Urine Nitrite NEGATIVEmg/dL Urine Bilirubin NEGATIVEmg/dL Urine Urobilinogen NEGATIVEmg/dL Urine Leukocyte Esterase NEGATIVELeu/ul Urine Microscopic RBC 29/HPF Urine Microscopic WBC 1/HPF Urine Hemoglobin 1+mg/dL Urine Glucose NEGATIVEmg/dL Urine Total Protein NEGATIVEmg/dl Sodium Level 142mmol/L Potassium Level 4.3mmol/L Chloride Level 110mmol/L Carbon Dioxide Level 22mmol/L Anion Gap 14 Blood Urea Nitrogen 18mg/dl Creatinine 0.73mg/dl Glucose Level 71mg/dl Calcium Level 8.9mg/dl Total Bilirubin 0.0mg/dl Direct Bilirubin 0.00mg/dl Indirect Bilirubin 0.0mg/dl Aspartate Amino Transf (AST/SGOT) 19IU/L Alanine Aminotransferase (ALT/SGPT) 33IU/L Alkaline Phosphatase 64IU/L Total Protein 6.7g/dl Albumin 3.8g/dl Globulin 2.90g/dl Albumin/Globulin Ratio 1.31 Lipase 520U/L Current Medications Medications (Trade) Dose Ordered Sig/Yuliya Route PRN Reason Start Time Stop Time Status Last Admin Dose Admin Sodium Chloride (NS) 500 ml @ 500 mls/hr Q1H STAT IV 02/09/17 15:00 02/09/17 15:59 DC 02/09/17 15:10 Morphine Sulfate (morphine) 4 mg ONCE STAT IV 02/09/17 15:00 02/09/17 15:01 DC 02/09/17 15:10 Ondansetron HCl (Zofran Inj) 4 mg ONCE STAT IV 02/09/17 15:00 02/09/17 15:01 DC 02/09/17 15:09 Famotidine (Pepcid Iv) 20 mg ONCE STAT IV 02/09/17 15:00 02/09/17 15:01 DC 02/09/17 15:09 Morphine Sulfate (morphine) 4 mg ONCE STAT IV 02/09/17 15:53 02/09/17 15:54 DC 02/09/17 16:00 [place] [id number] Radiology Main Line: [phone] DIAGNOSTIC IMAGING REPORT Patient: ANKUSH OSEI : 1960 Age: 56 Sex: F MR #: [id number] DOS: 02/09/17 1503 Ordering MD: DELMA MESSINA MD Location: [facility] Room/Bed: PROCEDURE: CT Abdomen and Pelvis without intravenous contrast. CLINICAL INDICATION: abd pain. TECHNIQUE: CT scan of the abdomen and pelvis without intravenous contrast was performed on a multi-slice CT scanner. Coronal and sagittal reformatted images were obtained from the axial source images. Images were reviewed on a high- resolution PACS workstation. DICOM images are available. Total DLP = 193 mGy-cm. CTDIvol = 3.9 mGy. One or more of the following dose reduction techniques were used: Automated exposure control. Adjustment of the mA and/or kV according to patient size. Use of iterative reconstruction technique. COMPARISON: 01/11/2017 FINDINGS: CT abdomen and pelvis: The lung bases are clear. The heart size is normal in size. The liver is normal in size and density without focal mass or intrahepatic biliary dilatation. Previously described hepatic steatosis is no longer appreciated.. The spleen is normal in size and homogeneous in density. The pancreas as visualized is normal. The gallbladder shows no evidence of stones or distension . The adrenal glands are normal. The kidneys are symmetrically unremarkable. No urolithiasis, obstructive uropathy, or solid mass lesion is seen. The stomach is partially collapsed, but is grossly unremarkable. The small bowels are unremarkable. The colon and rectum are normal. There is mild retained feces throughout the colon. There is no evidence of appendicitis or diverticulitis. The uterus has been removed.. The bladder is normal. There is no abdominal or pelvic adenopathy, free fluid, free air, mass or mesenteric inflammation. The aorta is normal in caliber with calcific atherosclerosis . The osseous structures showing degenerative enthesopathy of the spine. No osteolytic or osteoblastic lesions are identified. The soft tissues are within normal limits. Lack of IV and oral contrast limits sensitivity of exam. IMPRESSION: 1. Unremarkable noncontrast CT scan of the abdomen and pelvis. 2. Status post hysterectomy. RPTAT: QQ .Leandro Rodney MD, MD Date Time Electronically viewed and signed by .Leandro Rodney MD, MD on 02/09/2017 16:15 .L/ CC: DELMA MESSINA MD Procedures/MDM 56-year-old female, with history of uterine cancer status post hysterectomy and most recently pancreatitis that required an admission a month ago here at [facility], presents complaining of epigastric pain radiating to the back. Vital signs stable, Physical exam revealed a tender epigastric area, no peritoneal signs. Differential diagnosis include but not limited to: Pancreatitis, colitis, gastroenteritis, UTI, kidney stones, irritable bowel syndrome, inflammatory bowel syndrome, malabsorption syndrome, cholelithiasis, food intolerance, medication side effect, diverticulitis, bowel obstruction. Pertinent Data: Labs: CBC: normal, CMP: normal kidney and liver function, normal electrolytes. Lipase: 300 Radiology: CT abdomen: 1. Unremarkable noncontrast CT scan of the abdomen and pelvis. 2. Status post hysterectomy. Physical examination and clinical presentation consistent most likely with mild pancreatitis.. During the ED course the patient remained stable, no new complaints. The patient received treatment with IV fluids, morphine and Zofran presenting overall improvement of the symptoms. Results and clinical impression discussed with patient who agrees with management. The patient is stable to be treated outpatient and will be discharged home with a Rx for [place], ranitidine and Zofran, some side effects of prescribed medications (headache, rash, nausea, vomiting, diarrhea, drowsiness, habituation, bleeding, hypertension, interactions with other medications) were reviewed. The patient was instructed to follow up with the primary care provider in the next 48h for close monitoring of a lipase. If symptoms persist, worsen or new symptoms develop, then patient should return to the ED immediately. Instructions explained and given directly by me to the patient in [place] with acknowledgment and demonstrated understanding. Disclaimer: Inadvertent spelling and grammatical errors are likely due to EHR/ dictation software use and do not reflect on the overall quality of patient care. Also, please note that the electronic time recorded on this note does not necessarily reflect the actual time of the patient encounter. Departure Diagnosis: Primary Impression: Abdominal pain Additional Impression: Elevated lipase Condition: Stable Additional Instructions: Muchas thierno por [facility] para lundberg servicio. Esperamos que en lundberg visita a la lainey de emergencia lundberg problema medico haya sido solucionado y que se sienta mucho mejor. Para estar seguros que lundberg mejoria sigue en proceso, le pedimos el favor de hacer hemant ollie de seguimiento medico con lundberg doctor primario en los proximos 2-4 barber. Lleve con usted estos documentos y las medicinas recetadas. Si aldo sintomas empeoran y no puede jarrett a lundberg doctor, por favor regrese a lainey de emergencia. En devonte que usted no tenga un mdico de atencin primaria: Llame al mdico o clnica comunitaria de referencia que aparece abajo ivonne las horas de consultorio para hacer hemant ollie para que le vean. CLINICAS: [facility] [phone] [facility] [phone] [facility] [phone] [facility] [phone] [facility] [phone] [address] [facility] [phone] DELMA LENZ MD Feb 09, 2017 14:32
[2017-02-09] MEDS ORDERED: FAMOTIDINE 20 MG INJ IV STA (15:00)
[2017-02-09] MEDS ORDERED: SOD CHLORIDE 0.9% 500 ML IV STA (15:00)
[2017-02-09] MEDS ORDERED: morphine 4 MG/ML VIAL IV STA ×2 (15:00→15:53)
[2017-02-09] MEDS ORDERED: ONDANSETRON 4 MG INJ IV STA (15:00)
[2017-02-09 15:38] LABS: BASOPHILS % 0.6 % (0.0-2.0); EOSINOPHILS # 0.5 10^3/ul (0.0-0.5); EOSINOPHILS % 6.5 % (0.0-7.0); HEMATOCRIT 30.8 % (37.0-47.0); HEMOGLOBIN 10.2 g/dl (12.0-16.0); LYMPHOCYTES # 2.6 10^3/ul (0.8-2.9); LYMPHOCYTES % 36.6 % (15.0-51.0); MEAN CORPUSCULAR HEMOGLOBIN 32.8 pg (29.0-33.0); MEAN CORPUSCULAR HGB CONC 33.1 g/dl (32.0-37.0); MEAN PLATELET VOLUME 10.7 fl (7.4-10.4); MONOCYTE # 0.8 10^3/ul (0.3-0.9); MONOCYTES % 10.8 % (0.0-11.0); NEUTROPHIL # 3.2 10^3/ul (1.6-7.5); NEUTROPHILS % 45.2 % (39.0-77.0); PLATELET COUNT 380 10^3/UL (140-415); RED BLOOD COUNT 3.11 10^6/ul (4.20-5.40); RED CELL DISTRIBUTION WIDTH 14.7 % (11.5-14.5)
[2017-02-09 15:53] LABS: ADD UMIC YES; UR ASCORBIC ACID 40 mg/dL (NEGATIVE); UR BILIRUBIN (Dip) NEGATIVE (NEGATIVE); UR BLOOD (Dip) 1+ mg/dL (NEGATIVE); UR CLARITY CLEAR (CLEAR); UR COLOR YELLOW (YELLOW); UR GLUCOSE (Dip) NEGATIVE (NEGATIVE); UR KETONES (Dip) NEGATIVE (NEGATIVE); UR LEUKOCYTE ESTERASE (Dip) NEGATIVE Leu/ul (NEGATIVE); UR NITRITE (Dip) NEGATIVE (NEGATIVE); UR RBC 29 /HPF (0-5); UR SPECIFIC GRAVITY (Dip) 1.025 (1.003-1.030); UR TOTAL PROTEIN (Dip) NEGATIVE (NEGATIVE); UR UROBILINOGEN (Dip) NEGATIVE (NEGATIVE)
[2017-02-09 15:59] LABS: ALBUMIN 3.8 g/dl (3.3-4.9); ALBUMIN/GLOBULIN RATIO 1.31; CALCIUM 8.9 mg/dl (8.4-10.2); CREATININE 0.73 mg/dl (0.44-1.00); POTASSIUM 4.3 mmol/L (3.5-5.1); TOTAL PROTEIN 6.7 g/dl (6.1-8.1)
--- NOTE | 2017-02-09 16:16 | RADRPT ---
PROCEDURE: CT Abdomen and Pelvis without intravenous contrast. CLINICAL INDICATION: abd pain. TECHNIQUE: CT scan of the abdomen and pelvis without intravenous contrast was performed on a multi -slice CT scanner. Coronal and sagittal reformatted images were obtained from the axial source image s. Images were reviewed on a high-resolution PACS workstation. DICOM images are available. Total DLP = 193 mGy-cm. CTDIvol = 3.9 mGy. One or more of the following dose reduction techniques were used: Automated exposure control. Adjustment of the mA and/or kV according to patient size. Use of iterative reconstruction technique. COMPARISON: 01/11/2017 FINDINGS: CT abdomen and pelvis: The lung bases are clear. The heart size is normal in size. The liver is normal in size and densit y without focal mass or intrahepatic biliary dilatation. Previously described hepatic steatosis is n o longer appreciated.. The spleen is normal in size and homogeneous in density. The pancreas as v isualized is normal. The gallbladder shows no evidence of stones or distension . The adrenal glan ds are normal. The kidneys are symmetrically unremarkable. No urolithiasis, obstructive uropathy, or solid mass lesion is seen. The stomach is partially collapsed, but is grossly unremarkable. The small bowels are unremarkable. The colon and rectum are normal. There is mild retained feces throughout the colon. There is no cam dence of appendicitis or diverticulitis. The uterus has been removed.. The bladder is normal. There is no abdominal or pelvic adenopathy, free fluid, free air, mass or mesenteric inflammation. The aorta is normal in caliber with calcific atherosclerosis . The osseous structures showing degen erative enthesopathy of the spine. No osteolytic or osteoblastic lesions are identified. The soft t issues are within normal limits. Lack of IV and oral contrast limits sensitivity of exam. IMPRESSION: 1. Unremarkable noncontrast CT scan of the abdomen and pelvis. 2. Status post hysterectomy. RPTAT: QQ .Leandro Rodney MD, Date Time Electronically viewed and signed by .Leandro Rodney MD, MD on 02/09/2017 16:15 .L/
[2017-02-09] MEDS ORDERED: HYDR-906 PO (17:13)
[2017-02-09] MEDS ORDERED: RANI150T9 PO (17:13)
[2017-02-09] MEDS ORDERED: ONDA4TAB14 PO (17:24)
== END 2017-02-09 17:10 | disposition home or self-care (01) ==
LOC: FTE 13:30
DX: R10.13 Epigastric pain (principal); R74.8 Abnormal levels of other serum enzymes; Z87.891 Personal history of nicotine dependence; Z85.41 Personal history of malignant neoplasm of cervix uteri
CPT/HCPCS: 36415; 74176; 80053; 81001; 83690; 85025; 96374; 96375; 96376; J2270; J2405; J7040; Z7502; Z7610

== ENCOUNTER 2017-03-28 21:44 | Emergency (ER) | END 2017-03-29 00:57 | disposition home or self-care (01) ==

== ENCOUNTER 2017-04-10 19:45 | Emergency (ER) | END 2017-04-11 00:50 | disposition left against medical advice (07) ==

== ENCOUNTER 2017-04-13 14:38 | Emergency (ER) | END 2017-04-13 19:01 | disposition home or self-care (01) ==

== ENCOUNTER 2017-06-15 00:08 | Emergency (ER) | END 2017-06-15 04:37 | disposition home or self-care (01) ==